=== PATIENT | female | born 1935 | race Caucasian/White ===

== ENCOUNTER 2016-02-29 13:41 | Outpatient (CLI) | payer MEDICARE, OTHER | END 2016-02-29 13:42 | disposition home or self-care (01) | DX: Z12.31 Encounter for screening mammogram for malignant neoplasm of breast (principal) ==

== ENCOUNTER 2017-01-30 13:46 | Outpatient (CLI) | payer MEDICARE, OTHER ==
--- NOTE | 2017-02-04 16:42 | Mammography Report ---
EXAMINATION: Digital diagnostic bilateral mammogram 01/30/2017. CLINICAL INDICATION: An 81-year-old with personal history of multiple benign biopsies, diffuse left breast pain. TECHNIQUE: Bilateral CC and MLO views, left true lateral view. COMPARISON: 02/29/2016, 02/28/2015, 03/02/2014, 02/23/2013 02/27/2011, 2009. FINDINGS: The breasts again demonstrate scattered fibroglandular densities bilaterally. Coarse and punctate, typically benign calcifications are present. Post-biopsy changes are stable. No suspicious masses, clustered microcalcifications, or regions of architectural distortion are identified. IMPRESSION: Benign findings. RECOMMENDATION: Routine annual screening unless otherwise clinically indicated. BI-RADS category 2 benign findings. STANDARD QUALIFYING STATEMENTS 1. This examination was reviewed with the aid of Computer-Aided Detection (CAD). 2. A negative or benign imaging report should not delay biopsy if clinically suspicious findings are present. Consider surgical consultation if warranted. More than 5% of cancers are not identified by imaging. 3. Dense breasts may obscure an underlying neoplasm. TD: 01/31/2017 05:35 SMITHA
== END 2017-01-30 13:47 | disposition home or self-care (01) ==
LOC: DI 13:46
PROVIDERS: ATTEND Internal Medicine
DX: N64.4 Mastodynia (principal)
CPT/HCPCS: 77066

== ENCOUNTER 2017-10-23 00:52 | Emergency (ER) | payer MEDICARE, OTHER ==
[2017-10-23] MEDS ORDERED: ASPIRIN CHEW 81 MG TABLET PO STA (01:04)
[2017-10-23] MEDS ORDERED: LORazepam 2 MG/ML VIAL IVP STA (01:14)
[2017-10-23] MEDS ORDERED: LORazepam 0.5 MG TABLET PO STA (01:14)
[2017-10-23 01:25] LABS: BASOPHILS # (AUTO) 0.1 10^3/uL (0.0-0.1); BASOPHILS % (AUTO) 0.7 %; EOSINOPHILS # (AUTO) 0.2 10^3/uL (0.0-0.7); EOSINOPHILS % (AUTO) 1.8 %; HGB - HEMOGLOBIN 14.9 g/dL (12.0-16.0); LYMPHOCYTES % (AUTO) 33.8 %; MEAN CORPUSCULAR HEMOGLOBIN 31.2 pg (27.0-31.0); MEAN CORPUSCULAR HGB CONC 34.1 g/dL (32.0-36.0); MEAN CORPUSCULAR VOLUME 91.6 fL (81.0-99.0); MEAN PLATELET VOLUME 7.3 fL (7.9-10.8); MONOCYTES # (AUTO) 0.8 10^3/uL (0.0-1.0); MONOCYTES % (AUTO) 6.4 %; NEUTROPHILS # (AUTO) 6.7 10^3/uL (1.5-6.6); NEUTROPHILS % (AUTO) 57.3 %; PLT - PLATELET COUNT 257 10^3/uL (130-450); RED BLOOD COUNT 4.78 10^6/uL (4.20-5.40); RED CELL DISTRIBUTION WIDTH 14.4 % (12.0-15.0); WHITE BLOOD COUNT 11.8 x10^3/uL (4.8-10.8)
[2017-10-23 01:31] LABS: ALBUMIN 4.4 g/dL (3.2-5.5); ALBUMIN/GLOBULIN RATIO 1.1 (1.0-2.2); BILIRUBIN,TOTAL 0.9 mg/dL (0.2-1.0); CALCIUM 9.6 mg/dL (8.5-10.3); CREATININE 0.8 mg/dL (0.4-1.0); TOTAL PROTEIN 8.3 g/dL (6.7-8.2)
[2017-10-23] MEDS ORDERED: FUROSEMIDE 40 MG/4 ML VIAL IVP STA (01:36)
--- NOTE | 2017-10-23 01:43 | XRAY Report ---
Reason: chest pain Procedure Date: 10/23/2017 Accession Number: [id number] / [id number] Procedure: XR - Chest 1 View X-Ray CPT Code: 20612 FULL RESULT: EXAM: CHEST RADIOGRAPHY EXAM DATE: 10/23/2017 01:23 AM. CLINICAL HISTORY: Chest pain. COMPARISON: None. TECHNIQUE: 1 view. FINDINGS: Lungs/Pleura: Diffuse mild interstitial opacities. Probable trace effusions. No gross pneumothorax. Mediastinum: Moderate cardiomegaly. No mediastinal shift. Other: None. IMPRESSION: Moderate CHF. RADIA
--- NOTE | 2017-10-23 01:54 | ED Physician Documentation ---
History of Present Illness - Stated complaint Stated Complaint: DIFF BREATHING,CHEST PX - Chief complaint Chief Complaint: General - History obtained from History obtained from: Patient, Family - Additonal information Additional information: 82-year-old female presents to the emergency department with sudden onset of shortness of breath which started this morning. The patient denies any chest pain or symptoms yesterday. The patient awoke suddenly this morning with significant shortness of breath. The patient denies any history of pulmonary disease or congestive heart failure. The patient has a history of atrial fibrillation and had a cardioversion on October 18. Symptoms are described as severe. No relieving factors. The patient denies fever, chills, cough or chest pain Review of Systems Constitutional: reports: Fatigue. denies: Fever Eyes: denies: Loss of vision Ears: denies: Ear pain Throat: denies: Dental pain / toothache Cardiac: reports: Pedal edema. 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 HEENT: Cataracts - Present Medications Home Medications: Ambulatory Orders Medication Instructions Recorded Confirmed Flecainide [Tambocar] 50 mg PO BID 10/23/17 10/23/17 Gemfibrozil 600 mg PO BID 10/23/17 10/23/17 Hydrocortisone PRN 10/23/17 Metoprolol Tartrate 25 mg PO TID 10/23/17 10/23/17 Multivitamin [Multivitamins] 1 cap PO DAILY 10/23/17 10/23/17 Rivaroxaban [Xarelto] 20 mg PO DAILY 10/23/17 10/23/17 Telmisartan/Hydrochlorothiazid 1 tab PO DAILY 10/23/17 10/23/17 [Telmisartan-Hctz 80-25 mg Tab] metFORMIN [Glucophage] 500 mg PO BID 10/23/17 10/23/17 - Allergies Allergies/Adverse Reactions: Allergies Allergy/AdvReac Type Severity Reaction Status Date / Time erythromycin base Allergy Unknown Verified 10/23/17 01:06 Hmeryjj-Inx-Kex Reductase Allergy Unknown Verified 10/23/17 01:06 Inhibitor - Social History Does the pt smoke?: No Smoking Status: Never smoker Does the pt drink ETOH?: No Does the pt have substance abuse?: No - Immunizations Immunizations are current?: Yes - POLST Patient has POLST: No PD ED PE NORMAL - General General: Alert and oriented X 3. No: No acute distress (82-year-old female who appears tachypneic, respiratory distress and is diaphoretic) - HEENT HEENT: Atraumatic, PERRL, EOMI, Ears normal - Neck Neck: Supple, no meningeal sign - Cardiac Cardiac: RRR, Strong equal pulses - Respiratory Respiratory: Other (Increased respiratory rate, bilateral pulmonary edema) - Abdomen Abdomen: Soft, Non tender - Derm Derm: Normal color - Extremities Extremities: No deformity. No: No edema (2+ edema bilaterally) - Neuro Neuro: Alert and oriented X 3, Normal speech - Psych Psych: Normal mood Results - Vitals Vitals: Vital Signs - 24 hr 10/23/17 10/23/17 10/23/17 01:00 01:15 01:24 Heart Rate 86 76 76 Respiratory 32 H 27 H 31 H Rate Blood Pressure 224/175 H 190/101 H 157/97 H O2 Saturation 85 L 96 93 10/23/17 10/23/17 10/23/17 01:34 01:48 01:55 Heart Rate 69 76 66 Respiratory 32 H 22 23 Rate Blood Pressure 145/84 H 121/75 137/85 H O2 Saturation 95 97 98 10/23/17 10/23/17 10/23/17 02:13 02:22 02:30 Heart Rate 73 67 64 Respiratory 22 21 23 Rate Blood Pressure 116/85 H 133/79 H 125/79 O2 Saturation 100 99 97 10/23/17 10/23/17 10/23/17 02:51 03:14 03:15 Heart Rate 65 66 64 Respiratory 26 H 23 Rate Blood Pressure 122/76 114/71 O2 Saturation 97 98 10/23/17 10/23/17 03:21 03:25 Heart Rate 65 63 Respiratory 21 21 Rate Blood Pressure 104/74 97/62 O2 Saturation 98 98 Oxygen O2 Source BIPAP - EKG (time done) No standard instances Rhythm: NSR Intervals: Normal MA, QRS normal Ischemia: Non specific changes (Subtle ST elevation, does not meet STEMI criteria) Other comments: Other comments (NSR with ischemic changes, no old to compare, repeat EKG no change) - Labs Labs: Laboratory Tests 10/23/17 10/23/17 10/23/17 01:10 01:10 01:10 WBC 11.8 H RBC 4.78 Hgb 14.9 Hct 43.8 MCV 91.6 MCH 31.2 H MCHC 34.1 RDW 14.4 Plt Count 257 MPV 7.3 L Neut # (Auto) 6.7 H Lymph # (Auto) 4.0 H [place] # (Auto) 0.8 Eos # (Auto) 0.2 Baso # (Auto) 0.1 Absolute Nucleated RBC 0.00 Nucleated RBC % 0.0 PT INR APTT Bld Gas Analysis Time Sample Site ABG pH ABG pCO2 ABG pO2 ABG HCO3 ABG Total CO2 ABG O2 Saturation ABG Oximetry Spot Check ABG Base Excess Giorgi Test FiO2 PEEP Pressure Support Vent EPAP IPAP Sodium 135 Potassium 4.2 Chloride 102 Carbon Dioxide 22 Anion Gap 11.0 BUN 21 H Creatinine 0.8 Estimated GFR (MDRD) 69 L Glucose 160 H Calcium 9.6 Total Bilirubin 0.9 AST 40 ALT 21 Alkaline Phosphatase 67 Troponin I 0.31 B-Natriuretic Peptide Total Protein 8.3 H Albumin 4.4 Globulin 3.9 Albumin/Globulin Ratio 1.1 Lipase 58 H 10/23/17 10/23/17 10/23/17 01:10 01:10 01:55 WBC RBC Hgb Hct MCV MCH MCHC RDW Plt Count MPV Neut # (Auto) Lymph # (Auto) [place] # (Auto) Eos # (Auto) Baso # (Auto) Absolute Nucleated RBC Nucleated RBC % PT 23.1 H INR 2.1 H APTT 44.8 H Bld Gas Analysis Time 0210 Sample Site RIGHT BRACHIAL ABG pH 7.41 ABG pCO2 33 L ABG pO2 109 H ABG HCO3 20.5 L ABG Total CO2 21.5 ABG O2 Saturation 98 ABG Oximetry Spot Check 97 ABG Base Excess -3.3 L Giorgi Test POSITIVE FiO2 50.00 PEEP 5 Pressure Support Vent 8 EPAP 5 IPAP 13 Sodium Potassium Chloride Carbon Dioxide Anion Gap BUN Creatinine Estimated GFR (MDRD) Glucose Calcium Total Bilirubin AST ALT Alkaline Phosphatase Troponin I B-Natriuretic Peptide 466 H Total Protein Albumin Globulin Albumin/Globulin Ratio Lipase - Rads (name of study) CXR Radiology: Final report received PD MEDICAL DECISION MAKING - ED course ED course: The patient was resuscitated with BiPAP, a nitro drip and Lasix. The patient's acute congestive heart failure exacerbation has improved and stabilized and the patient will require admission for further workup and management. The case was discussed with the hospitalist Dr. Mcrae who recommends transfer to a center with cardiology since this is new onset for the patient and it appears that she has a NSTEMI. Multiple hospitals were contacted, unfortunately none had beds available. [facility] as except the patient. The case was discussed with Dr. Loaiza. The findings and plan were discussed with the patient and family who understand and agree to the plan - Critical Care Time(min): 35 Time Includes: Direct patient care, Reassess patient, Document care, Coordinate care, Medical consult, Family consult for tx dec Data interpretation: Labs, Pulse ox, ABG, CXR, Prior EKG Procedures excluded from critical care time: EKG - Sepsis Event Vital Signs: Vital Signs - 24 hr 10/23/17 10/23/17 10/23/17 01:00 01:15 01:24 Heart Rate 86 76 76 Respiratory 32 H 27 H 31 H Rate Blood Pressure 224/175 H 190/101 H 157/97 H O2 Saturation 85 L 96 93 10/23/17 10/23/17 10/23/17 01:34 01:48 01:55 Heart Rate 69 76 66 Respiratory 32 H 22 23 Rate Blood Pressure 145/84 H 121/75 137/85 H O2 Saturation 95 97 98 10/23/17 10/23/17 10/23/17 02:13 02:22 02:30 Heart Rate 73 67 64 Respiratory 22 21 23 Rate Blood Pressure 116/85 H 133/79 H 125/79 O2 Saturation 100 99 97 10/23/17 10/23/17 10/23/17 02:51 03:14 03:15 Heart Rate 65 66 64 Respiratory 26 H 23 Rate Blood Pressure 122/76 114/71 O2 Saturation 97 98 10/23/17 10/23/17 03:21 03:25 Heart Rate 65 63 Respiratory 21 21 Rate Blood Pressure 104/74 97/62 O2 Saturation 98 98 Oxygen O2 Source BIPAP Departure - Departure Disposition: 02 Transfer Acute Care Hosp Clinical Impression: NSTEMI (non-ST elevated myocardial infarction) Acute CHF Qualifiers: Heart failure type: unspecified Qualified Code(s): I50.9 - Heart failure, unspecified Condition: Fair
[2017-10-23] MEDS ORDERED: NITROGLYCERIN 50 MG/250 ML 50 MG/250 ML BOTTLE IV SCH (02:00)
[2017-10-23 02:13] LABS: INR 2.1 (0.8-1.2); PT - PROTHROMBIN TIME 23.1 secs (9.9-12.6)
[2017-10-23 02:23] LABS: ABG PH 7.41 (7.35-7.45)
[2017-10-23 02:24] LABS: ABG BASE EXCESS -3.3 mmol/L (-2.0-3.0); ABG HCO3 20.5 mmol/L (22.0-26.0); ABG OXYGEN SATURATION 98 % (94-98); ABG PCO2 33 mmHg (34-45); ABG PO2 109 mmHg (80-100); ABG TCO2 21.5 MMOL/L (21.0-29.0); ALLEN TEST POSITIVE
[2017-10-23] MEDS ORDERED: ENOXAPARIN 80 MG/0.8 ML SYRINGE SUBQ STA (02:48)
[2017-10-23 06:48] VITALS: BP 130/75
== END 2017-10-23 07:10 | disposition short-term general hospital (02) ==
LOC: ED 00:52
DX: I21.4 Non-ST elevation (NSTEMI) myocardial infarction (principal); I50.9 Heart failure, unspecified; I11.0 Hypertensive heart disease with heart failure; E11.9 Type 2 diabetes mellitus without complications; I48.91 Unspecified atrial fibrillation; Z79.84 Long term (current) use of oral hypoglycemic drugs
CPT/HCPCS: 36415; 36600; 71045; 80053; 82803; 83690; 83880; 84484; 85025; 85610; 85730; 93005; 96365; 96375; 99285; 99291; A9270; J1650; J2060

== ENCOUNTER 2018-02-23 12:53 | Outpatient (CLI) | payer MEDICARE, OTHER ==
--- NOTE | 2018-02-24 09:46 | Mammography Report ---
Reason: SCREENING MAMMO Procedure Date: 02/23/2018 Accession Number: [id number] / [id number] Procedure: CAREN - Screening Mammo w/Tu CPT Code: FULL RESULT: EXAM: Screening Mammo w/Tu DATE: 02/23/2018 1:51 PM CLINICAL HISTORY: Screening encounter. History of 13 years of hormone therapy and history of breast cyst removal bilaterally. TECHNIQUE: Bilateral CC and MLO views were obtained. COMPARISON: 01/30/2017 through 02/23/2013. FINDINGS: The breasts demonstrate scattered fibroglandular densities bilaterally. Postsurgical changes are seen bilaterally including coarse typically benign calcifications in the left breast. No suspicious masses, clustered microcalcifications, or regions of architectural distortion are identified. IMPRESSION: Benign findings RECOMMENDATION: Routine annual screening unless otherwise clinically indicated. BIRADS CATEGORY 2: Benign findings STANDARD QUALIFYING STATEMENTS: 1. This examination was not reviewed with the aid of Computer-Aided Detection (CAD). 2. A negative or benign imaging report should not preclude biopsy if clinically suspicious findings are present. 3. Dense breasts may obscure an underlying neoplasm. 4. This examination was reviewed with the aid of 3D breast imaging (tomosynthesis).
== END 2018-02-23 12:54 | disposition home or self-care (01) ==
LOC: DI 12:53
PROVIDERS: ATTEND Internal Medicine
DX: Z12.31 Encounter for screening mammogram for malignant neoplasm of breast (principal)
CPT/HCPCS: 77063; 77067

== ENCOUNTER 2018-09-25 09:52 | Emergency (ER) | payer MEDICARE, OTHER ==
[2018-09-25 10:02] VITALS: BP 153/106
--- NOTE | 2018-09-25 10:08 | ED Physician Documentation ---
History of Present Illness - Stated complaint Stated Complaint: LT LEG PX/SWELLING - Chief complaint Chief Complaint: Ext Problem - History obtained from History obtained from: Patient - Additonal information Additional information: Patient is an 83-year-old female with history of CHF and atrial fibrillation anticoagulated with Xarelto and compliant with home medications presenting with left leg pain, swelling, slight erythema, and bruising that happened several days ago. No known inciting incident or trauma. Patient denies changes in sensation, strength, or range of motion to leg. Patient reports slight improvement with ice application. Patient reports no other areas of swelling and otherwise limited salt intake. No chest pain, difficulty breathing, productive cough, fever, or other complaints. No other improving or worsening factors noted. Review of Systems Constitutional: denies: Fever Cardiac: denies: Chest pain / pressure Respiratory: denies: Dyspnea, Cough Skin: reports: Rash Musculoskeletal: reports: Extremity pain, Extremity swelling Neurologic: denies: Focal weakness, Numbness PD PAST MEDICAL HISTORY - Past Medical History Past Medical History: Yes Cardiovascular: Congestive heart failure, Hypertension, Atrial fibrillation Respiratory: None Endocrine/Autoimmune: Type 2 diabetes Musculoskeletal: Osteoarthritis - Past Surgical History Past Surgical History: Yes General: Cholecystectomy Ortho: Hip replacement, Knee replacement, Rotator cuff repair /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 HEENT: Cataracts - Present Medications Home Medications: Ambulatory Orders Medication Instructions Recorded Confirmed Flecainide [Tambocar] 50 mg PO BID 10/23/17 10/23/17 Gemfibrozil 600 mg PO BID 10/23/17 10/23/17 Hydrocortisone PRN 10/23/17 Metoprolol Tartrate 25 mg PO TID 10/23/17 10/23/17 Multivitamin [Multivitamins] 1 cap PO DAILY 10/23/17 10/23/17 Rivaroxaban [Xarelto] 20 mg PO DAILY 10/23/17 10/23/17 Telmisartan/Hydrochlorothiazid 1 tab PO DAILY 10/23/17 10/23/17 [Telmisartan-Hctz 80-25 mg Tab] metFORMIN [Glucophage] 500 mg PO BID 10/23/17 10/23/17 Clindamycin HCl [Clindamycin 150MG 450 mg PO QID 5 Days capsule 09/25/18 CAP] Rivaroxaban [Xarelto] 20 mg PO DAILY 09/25/18 09/25/18 - Allergies Allergies/Adverse Reactions: Allergies Allergy/AdvReac Type Severity Reaction Status Date / Time erythromycin base Allergy Unknown Verified 09/25/18 10:02 Fizzvcu-Wpa-Iao Reductase Allergy Unknown Verified 09/25/18 10:02 Inhibitor - Social History Does the pt smoke?: No Smoking Status: Never smoker Does the pt drink ETOH?: No Does the pt have substance abuse?: No - Immunizations Immunizations are current?: Yes - POLST Patient has POLST: No PD ED PE NORMAL - Vitals Vital signs reviewed: Yes - General General: Alert and oriented X 3, No acute distress, Well developed/nourished - HEENT HEENT: Atraumatic, Moist mucous membranes - Neck Neck: Supple, no meningeal sign - Cardiac Cardiac: RRR, No murmur, Strong equal pulses - Respiratory Respiratory: No respiratory distress, Clear bilaterally - Derm Derm: Warm and dry, Other (2+ pitting edema to left lower extremity with diffuse erythema between left knee and left ankle, as well as scattered bruising of variable age to the same area.) - Extremities Extremities: No deformity. No: No tenderness to palpate (Mild tenderness to palpation over left lower extremity overlying areas of swelling.), No edema - Neuro Neuro: Alert and oriented X 3, No motor deficit, No sensory deficit - Psych Psych: Normal mood, Normal affect Results - Vitals Vitals: Vital Signs - 24 hr 09/25/18 09:59 Temperature 36.0 C L Heart Rate 96 Respiratory 20 Rate Blood Pressure 153/106 H O2 Saturation 97 Oxygen O2 Source Room air PD MEDICAL DECISION MAKING - ED course Complexity details: reviewed results, re-evaluated patient, considered differential, d/w patient, d/w family ED course: Patient presenting with left lower extremity swelling, erythema, and bruising without known inciting incident or trauma. Although did not feel bony tenderness or exhibit a deformity, do have concern for possible trauma given the extent of bruising and obtained a plain film which did not show evidence of dislocation or fracture. Patient is unlikely to have a clot given her anticoagulation, but did rule out DVT with venous ultrasound. Do not find evidence of joint infection, gout present. Feel the patient could also be experiencing cellulitis and discussed this potential etiology with patient and agreed to start oral antibiotics as an outpatient. Also had extensive discussions regarding other supportive cares, return precautions, and appropriate follow-up. Did discuss the possibility of worsening CHF given the amount of swelling and patient to remain compliant with her spironolactone and Lasix. Otherwise, patient and family voiced understanding and are comfortable with discharge plan. Departure - Departure Disposition: 01 Home, Self Care Clinical Impression: Cellulitis Qualifiers: Site of cellulitis: extremity Site of cellulitis of extremity: lower extremity Laterality: left Qualified Code(s): L03.116 - Cellulitis of left lower limb Condition: Good Instructions: ED Infec Skin Cellulitis Follow-Up: Candice Arias MD [Primary Care Provider] - Within 3 Days Prescriptions: Clindamycin HCl [Clindamycin 150MG CAP] 450 mg PO QID 5 Days capsule Comments: Please take antibiotic as prescribed for possible skin infection. Recommend taking antibiotic with a small amount of food to avoid upset stomach. Also recommend continuing all home prescriptions as instructed. Also recommend elevation and ice application to help reduce swelling. Follow-up with primary care physician in next 2 to 3 days and return to ED sooner if experience worsening symptoms or have other concerns.
--- NOTE | 2018-09-25 10:50 | XRAY Report ---
Reason: leg swelling, bruising, no known injury Procedure Date: 09/25/2018 Accession Number: [id number] / [id number] Procedure: XR - Tib/Fib LT CPT Code: FULL RESULT: EXAM: LEFT TIBIA/FIBULA RADIOGRAPHY EXAM DATE: 09/25/2018 10:33 AM. CLINICAL HISTORY: Leg swelling, bruising, no known injury. COMPARISON: None. TECHNIQUE: 2 views. FINDINGS: Bones: Normal. No fracture or bone lesion. Joints: Total knee arthroplasty is noted. No dislocation is detected. Soft Tissues: Normal. No soft tissue swelling. IMPRESSION: No fracture or dislocation. RADIA
--- NOTE | 2018-09-25 12:57 | Ultrasound Report ---
Reason: Left leg swelling, bruising, pain Procedure Date: 09/25/2018 Accession Number: [id number] / [id number] Procedure: US - Duplex Ext Veins Left CPT Code: FULL RESULT: EXAM: LEFT LOWER EXTREMITY VENOUS ULTRASOUND EXAM DATE: 09/25/2018 11:20 AM. CLINICAL HISTORY: Left leg swelling, bruising, pain. COMPARISON: None. TECHNIQUE: Real-time sonographic vascular imaging was performed by the air cargo specialist through the lower extremity utilizing both color-flow and Doppler spectral analysis. Multiple off premise service representative static images were saved for review. FINDINGS: Common Femoral Vein (CFV): Normal. CFV-GSV Junction: Normal. Profunda Femoral Vein (PFV): Normal. Femoral Vein (FV) Prox: Normal. Femoral Vein (FV) Mid: Normal. Femoral Vein (FV) Dist: Normal. Popliteal Vein: Normal. Posterior Tibial Veins: Normal. Peroneal Veins: Normal. Contralateral Side CFV: Normal. Other: None. IMPRESSION: No evidence for deep venous thrombosis in the left lower extremity. RADIA
== END 2018-09-25 14:00 | disposition home or self-care (01) ==
LOC: ED 09:52
DX: L03.116 Cellulitis of left lower limb (principal); S80.12XA Contusion of left lower leg, initial encounter; X58.XXXA Exposure to other specified factors, initial encounter; I11.0 Hypertensive heart disease with heart failure; I50.9 Heart failure, unspecified; I48.91 Unspecified atrial fibrillation; Z79.01 Long term (current) use of anticoagulants; E11.9 Type 2 diabetes mellitus without complications; Z79.84 Long term (current) use of oral hypoglycemic drugs
CPT/HCPCS: 99284

== ENCOUNTER 2019-01-13 09:58 | Emergency (ER) | payer MEDICARE, OTHER ==
[2019-01-13 10:12] VITALS: BP 124/76
[2019-01-13 10:49] LABS: BASOPHILS # (AUTO) 0.1 10^3/uL (0.0-0.1); BASOPHILS % (AUTO) 1.3 %; EOSINOPHILS # (AUTO) 0.2 10^3/uL (0.0-0.7); EOSINOPHILS % (AUTO) 2.7 %; HGB - HEMOGLOBIN 14.1 g/dL (12.0-16.0); LYMPHOCYTES # (AUTO) 2.4 10^3/uL (1.5-3.5); LYMPHOCYTES % (AUTO) 37.5 %; MEAN CORPUSCULAR HEMOGLOBIN 31.8 pg (27.0-31.0); MEAN CORPUSCULAR HGB CONC 33.1 g/dL (32.0-36.0); MEAN CORPUSCULAR VOLUME 96.2 fL (81.0-99.0); MONOCYTES # (AUTO) 0.7 10^3/uL (0.0-1.0); MONOCYTES % (AUTO) 11.4 %; NEUTROPHILS % (AUTO) 46.8 %; PLT - PLATELET COUNT 279 10^3/uL (130-450); RED BLOOD COUNT 4.43 10^6/uL (4.20-5.40); RED CELL DISTRIBUTION WIDTH 13.5 % (12.0-15.0); WHITE BLOOD COUNT 6.3 x10^3/uL (4.8-10.8)
[2019-01-13 10:56] LABS: INR 1.5 (0.8-1.2)
[2019-01-13 11:02] LABS: ALBUMIN 4.3 g/dL (3.2-5.5); ALBUMIN/GLOBULIN RATIO 1.3 (1.0-2.2); BILIRUBIN,TOTAL 0.8 mg/dL (0.2-1.0); CALCIUM 9.3 mg/dL (8.5-10.3); CREATININE 0.8 mg/dL (0.4-1.0); TOTAL PROTEIN 7.7 g/dL (6.7-8.2)
--- NOTE | 2019-01-13 12:41 | ED Physician Documentation ---
History of Present Illness - Stated complaint Stated Complaint: BLOODY NOSE - Chief complaint Chief Complaint: Heent - History obtained from History obtained from: Patient - History of Present Illness Timing: How many days ago (2) Pain level max: 0 Pain level now: 0 - Additonal information Additional information: recurrent epistaxis at home. Pt on xarelto. better with packing, worse with movement or blowing the nose. 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 HEENT: Cataracts - Present Medications Home Medications: Ambulatory Orders Medication Instructions Recorded Confirmed Flecainide [Tambocar] 50 mg PO BID 10/23/17 10/23/17 Gemfibrozil 600 mg PO BID 10/23/17 10/23/17 Hydrocortisone PRN 10/23/17 Metoprolol Tartrate 25 mg PO TID 10/23/17 10/23/17 Multivitamin [Multivitamins] 1 cap PO DAILY 10/23/17 10/23/17 Rivaroxaban [Xarelto] 20 mg PO DAILY 10/23/17 10/23/17 Telmisartan/Hydrochlorothiazid 1 tab PO DAILY 10/23/17 10/23/17 [Telmisartan-Hctz 80-25 mg Tab] metFORMIN [Glucophage] 500 mg PO BID 10/23/17 10/23/17 Clindamycin HCl [Clindamycin 150MG 450 mg PO QID 5 Days capsule 09/25/18 CAP] Rivaroxaban [Xarelto] 20 mg PO DAILY 09/25/18 09/25/18 Cephalexin [Keflex] 500 mg PO Q6H #10 capsule 01/13/19 - Allergies Allergies/Adverse Reactions: Allergies Allergy/AdvReac Type Severity Reaction Status Date / Time erythromycin base Allergy Unknown Verified 01/13/19 10:12 Frfboic-Bkb-Ebf Reductase Allergy Unknown Verified 01/13/19 10:12 Inhibitor - Social History Does the pt smoke?: No Smoking Status: Never smoker Does the pt drink ETOH?: No Does the pt have substance abuse?: No - Immunizations Immunizations are current?: Yes - POLST Patient has POLST: No PD ED PE NORMAL - Vitals Vital signs reviewed: Yes - General General: Alert and oriented X 3, No acute distress, Well developed/nourished - HEENT HEENT: Moist mucous membranes, Other (slight bleeding from R anterior nare) - Neck Neck: Supple, no meningeal sign - Derm Derm: Warm and dry, No rash - Neuro Neuro: Alert and oriented X 3 - Psych Psych: Normal mood, Normal affect Results - Vitals Vitals: Vital Signs - 24 hr 01/13/19 10:09 Temperature 36.4 C L Heart Rate 76 Respiratory 18 Rate Blood Pressure 124/76 O2 Saturation 100 Oxygen O2 Source Room air - Labs Labs: Laboratory Tests 01/13/19 01/13/19 01/13/19 10:40 10:40 10:40 WBC 6.3 RBC 4.43 Hgb 14.1 Hct 42.6 MCV 96.2 MCH 31.8 H MCHC 33.1 RDW 13.5 Plt Count 279 MPV 9.0 Neut # (Auto) 3.0 Lymph # (Auto) 2.4 [place] # (Auto) 0.7 Eos # (Auto) 0.2 Baso # (Auto) 0.1 Absolute Nucleated RBC 0.00 Nucleated RBC % 0.0 PT 17.0 H INR 1.5 H Sodium 139 Potassium 3.4 L Chloride 102 Carbon Dioxide 28 Anion Gap 9.0 BUN 23 H Creatinine 0.8 Estimated GFR (MDRD) 69 L Glucose 117 H Calcium 9.3 Total Bilirubin 0.8 AST 33 ALT 20 Alkaline Phosphatase 45 Total Protein 7.7 Albumin 4.3 Globulin 3.4 Albumin/Globulin Ratio 1.3 Procedures - Epistaxis Site: Right, Anterior Preparation: Clots removed, Clamp / pressure applied Treatment: Anterior rhinorocket Other: Observed - no bleeding, Pt tolerated well, O2 sat WNL, Antibiotics prescribed, Referred to ENT PD MEDICAL DECISION MAKING - ED course Complexity details: reviewed results, considered differential, d/w patient, d/w family ED course: Anterior epistaxis. packed. Patient counseled regarding signs and symptoms for which I believe and urgent re-evaluation would be necessary. Patient with good understanding of and agreement to plan and is comfortable going home at this time This document was made in part using voice recognition software. While efforts are made to proofread this document, sound alike and grammatical errors may occur. Departure - Departure Disposition: 01 Home, Self Care Clinical Impression: Epistaxis Condition: Good Instructions: ED Nosebleed Follow-Up: Candice Arias MD [Primary Care Provider] - [facility] [Provider Group] [facility] [Provider Group] Prescriptions: Cephalexin [Keflex] 500 mg PO Q6H #10 capsule Comments: Return on Friday to have the packing removed. Take the antibiotics while the packing is inserted. Return if you worsen.
== END 2019-01-13 13:14 | disposition home or self-care (01) ==
LOC: ED 09:58
DX: R04.0 Epistaxis (principal); I10 Essential (primary) hypertension; E11.9 Type 2 diabetes mellitus without complications; Z79.84 Long term (current) use of oral hypoglycemic drugs
CPT/HCPCS: 30901; 36415; 80053; 85025; 85610; 99283; 99284

== ENCOUNTER 2019-01-15 09:52 | Emergency (ER) | payer MEDICARE, OTHER ==
[2019-01-15 10:03] VITALS: BP 125/86
--- NOTE | 2019-01-15 11:02 | ED Physician Documentation ---
PD HPI HEENT - Stated complaint Stated Complaint: F/U NOSEBLEED - Chief complaint Chief Complaint: General - History obtained from History obtained from: Patient - History of Present Illness Timing - onset: How many days ago (2) Timing - details: Abrupt onset, Now resolved (The patient was here couple days ago for nosebleed and had a Rhino Rocket placed. There is been in there for a couple of days and she is here for removal. She denies any bleeding since the ER visit. No fever or chills. No sinus area pressure pain.) Recently seen: Emergency Dept (2 days ago for nosebleed) Review of Systems Constitutional: denies: Fever, Chills Nose: denies: Sinus pressure / pain Throat: denies: Sore throat Endocrine: reports: Easy bruising / bleeding PD PAST MEDICAL HISTORY - Past Medical History Past Medical History: Yes Cardiovascular: Congestive heart failure, Hypertension, Atrial fibrillation Respiratory: None Endocrine/Autoimmune: Type 2 diabetes Musculoskeletal: Osteoarthritis - Past Surgical History Past Surgical History: Yes General: Cholecystectomy Ortho: Hip replacement, Knee replacement, Rotator cuff repair /[employer]: Hysterectomy HEENT: Cataracts - Present Medications Home Medications: Ambulatory Orders Medication Instructions Recorded Confirmed Flecainide [Tambocar] 50 mg PO BID 10/23/17 10/23/17 Gemfibrozil 600 mg PO BID 10/23/17 10/23/17 Hydrocortisone PRN 10/23/17 Metoprolol Tartrate 25 mg PO TID 10/23/17 10/23/17 Multivitamin [Multivitamins] 1 cap PO DAILY 10/23/17 10/23/17 Rivaroxaban [Xarelto] 20 mg PO DAILY 10/23/17 10/23/17 Telmisartan/Hydrochlorothiazid 1 tab PO DAILY 10/23/17 10/23/17 [Telmisartan-Hctz 80-25 mg Tab] metFORMIN [Glucophage] 500 mg PO BID 10/23/17 10/23/17 Clindamycin HCl [Clindamycin 150MG 450 mg PO QID 5 Days capsule 09/25/18 CAP] Rivaroxaban [Xarelto] 20 mg PO DAILY 09/25/18 09/25/18 Cephalexin [Keflex] 500 mg PO Q6H #10 capsule 01/13/19 - Allergies Allergies/Adverse Reactions: Allergies Allergy/AdvReac Type Severity Reaction Status Date / Time erythromycin base Allergy Unknown Verified 01/15/19 10:03 Nlmwiuq-Kgf-Kzv Reductase Allergy Unknown Verified 01/15/19 10:03 Inhibitor - Social History Does the pt smoke?: No Smoking Status: Never smoker Does the pt drink ETOH?: No Does the pt have substance abuse?: No - Immunizations Immunizations are current?: Yes - POLST Patient has POLST: No PD ED PE NORMAL - Vitals Vital signs reviewed: Yes - General General: Alert and oriented X 3, No acute distress, Well developed/nourished - HEENT HEENT: PERRL, EOMI, Pharynx benign, Other (There is a Rhino Rocket in place in the right nostril. Its balloon is deflated and removed gently without any co mplications. The medial wall does not show any signs of ulcerations or acute problems. There is mild inflammation generally. There is no area that looks to be impending bleeding.) - Neck Neck: Supple, no meningeal sign, No adenopathy Results - Vitals Vitals: Oxygen O2 Source Room air PD MEDICAL DECISION MAKING - ED course Complexity details: considered differential (The nasal packing was removed and the wall appeared normal without any bleeding or signs of impending bleeding.), d/w patient Departure - Departure Disposition: 01 Home, Self Care Clinical Impression: Encounter for removal of nasal pack Condition: Stable Record reviewed to determine appropriate education?: Yes Comments: Use some ointment to the nasal wall gently with a Q-tip nightly and also some saline nose spray or moisturizing fluid 2-3 times during the day regularly. Continue usual medications. Discharge Date/Time: 01/15/19 11:24
== END 2019-01-15 11:24 | disposition home or self-care (01) ==
LOC: ED 09:52
DX: Z48.00 Encounter for change or removal of nonsurgical wound dressing (principal); I11.0 Hypertensive heart disease with heart failure; I50.9 Heart failure, unspecified; I48.91 Unspecified atrial fibrillation; Z79.01 Long term (current) use of anticoagulants; E11.9 Type 2 diabetes mellitus without complications; Z79.84 Long term (current) use of oral hypoglycemic drugs
CPT/HCPCS: 99281

== ENCOUNTER 2019-02-10 21:59 | Emergency (ER) | payer MEDICARE, OTHER ==
[2019-02-10] MEDS ORDERED: BUFFERED LIDOCAINE 10 ML SYRINGE SUBQ STA (22:32)
[2019-02-10] MEDS ORDERED: TETANUS/DIPHTHERIA/PERTUSSIS 0.5 ML SYRINGE IM ONE (22:32)
--- NOTE | 2019-02-10 22:33 | ED Physician Documentation ---
PD HPI UPPER EXT INJURY - Stated complaint Stated Complaint: LT HAND LAC - Chief complaint Chief Complaint: Laceration - History obtained from History obtained from: Patient - History of Present Illness Location: Left (83-year-old woman with unknown tetanus status was washing dishes and accidentally cut her left palm with a knife at home just prior to arrival.) Review of Systems Constitutional: reports: Reviewed and negative Throat: reports: Reviewed and negative Cardiac: reports: Reviewed and negative PD PAST MEDICAL HISTORY - Past Medical History Past Medical History: Yes Cardiovascular: Congestive heart failure, Hypertension, Atrial fibrillation Respiratory: None Endocrine/Autoimmune: Type 2 diabetes Musculoskeletal: Osteoarthritis - Past Surgical History Past Surgical History: Yes General: Cholecystectomy Ortho: Hip replacement, Knee replacement, 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: Hysterectomy HEENT: Cataracts - Present Medications Home Medications: Ambulatory Orders Medication Instructions Recorded Confirmed Flecainide [Tambocar] 50 mg PO BID 10/23/17 10/23/17 Gemfibrozil 600 mg PO BID 10/23/17 10/23/17 Hydrocortisone PRN 10/23/17 Metoprolol Tartrate 25 mg PO TID 10/23/17 10/23/17 Multivitamin [Multivitamins] 1 cap PO DAILY 10/23/17 10/23/17 Rivaroxaban [Xarelto] 20 mg PO DAILY 10/23/17 10/23/17 Telmisartan/Hydrochlorothiazid 1 tab PO DAILY 10/23/17 10/23/17 [Telmisartan-Hctz 80-25 mg Tab] metFORMIN [Glucophage] 500 mg PO BID 10/23/17 10/23/17 Clindamycin HCl [Clindamycin 150MG 450 mg PO QID 5 Days capsule 09/25/18 CAP] Rivaroxaban [Xarelto] 20 mg PO DAILY 09/25/18 09/25/18 Cephalexin [Keflex] 500 mg PO Q6H #10 capsule 01/13/19 - Allergies Allergies/Adverse Reactions: Allergies Allergy/AdvReac Type Severity Reaction Status Date / Time erythromycin base Allergy Unknown Verified 01/15/19 10:03 Uldeqpz-Dda-Vkm Reductase Allergy Unknown Verified 01/15/19 10:03 Inhibitor - Social History Does the pt smoke?: No Smoking Status: Never smoker Does the pt drink ETOH?: No Does the pt have substance abuse?: No - Immunizations Immunizations are current?: Yes - POLST Patient has POLST: No PD ED PE NORMAL - Vitals Vital signs reviewed: Yes - General General: Alert and oriented X 3, No acute distress - Extremities Extremities: Other (There is a 1.5 cm laceration on the thenar musculature on the palmar side without distal neurovascular compromise) - Neuro Neuro: Alert and oriented X 3, Normal speech Results - Vitals Vitals: Vital Signs - 24 hr 02/10/19 22:07 Temperature 36.7 C Heart Rate 72 Respiratory 18 Rate Blood Pressure 133/89 H O2 Saturation 97 Oxygen O2 Source Room air Procedures - Laceration (location) L hand Length in cm: 1.5 Wound type: Linear Neurovascular status: Sensory intact, Motor intact, Vascular intact Tendon involvement: Tendon intact Anesthesia: Lidocaine 1%, With bicarb Wound Preparation: Irrigated copiously NS Skin layer closure: Nylon, Interrupted, Size #-0 - enter number (4-0), Sutures - enter # (4) Other: Tetanus booster given Complexity: Simple Departure - Departure Disposition: 01 Home, Self Care Clinical Impression: Laceration of left hand Qualifiers: Encounter type: initial encounter Foreign body presence: without foreign body Qualified Code(s): S61.412A - Laceration without foreign body of left hand, initial encounter Condition: Good Record reviewed to determine appropriate education?: Yes Instructions: ED Laceration All Comments: Come back for any signs of infection which would include: Redness, swelling, drainage, increased pain, or fevers. You can wash it soap and water. Keep it covered and moist with bacitracin ointment which is available over the counter; avoid neosporin. Follow-up with your physician in 14 days for suture removal.
[2019-02-10 23:11] VITALS: BP 105/60
== END 2019-02-10 23:11 | disposition home or self-care (01) ==
LOC: ED 21:59
DX: S61.412A Laceration without foreign body of left hand, initial encounter (principal); W26.0XXA Contact with knife, initial encounter; Y93.G1 Activity, food preparation and clean up; I10 Essential (primary) hypertension; E11.9 Type 2 diabetes mellitus without complications; Z79.84 Long term (current) use of oral hypoglycemic drugs; Z79.01 Long term (current) use of anticoagulants
CPT/HCPCS: 12001; 90471

== ENCOUNTER 2019-03-19 09:38 | Outpatient (CLI) | payer MEDICARE, OTHER ==
--- NOTE | 2019-03-22 11:34 | Mammography Report ---
Reason: ROUTINE MAMMO Procedure Date: 03/19/2019 Accession Number: [id number] / [id number] Procedure: CAREN - Screening Mammo w/Tu CPT Code: Final Report FULL RESULT: EXAM: Screening Mammo w/Tu DATE: 03/19/2019 10:13 AM CLINICAL HISTORY: History of bilateral benign breast biopsies. TECHNIQUE: (B) - Bilateral CC and MLO views were obtained. COMPARISON: 02/23/2018, 01/30/2017, 02/29/2016, 02/28/2015, 03/02/2014, 02/23/2013, 02/27/2009 and 02/12/2010 PARENCHYMAL PATTERN: (A) - The breasts demonstrate scattered fibroglandular densities bilaterally. FINDINGS: No significant interval change. There are no new suspicious masses, calcifications, or areas of distortion. IMPRESSION: Negative examination. BI-RADS category 1. RECOMMENDATION: (ANNUAL) - Recommend routine annual screening mammography. BI-RADS CATEGORY: (1) - Negative. STANDARD QUALIFYING STATEMENTS: 1. This examination was not reviewed with the aid of Computer-Aided Detection (CAD). 2. A negative or benign imaging report should not preclude biopsy if clinically suspicious findings are present. 3. Dense breasts may obscure an underlying neoplasm. 4. This examination was reviewed with the aid of 3D breast imaging (tomosynthesis).
== END 2019-03-19 09:39 | disposition home or self-care (01) ==
LOC: DI 09:38
PROVIDERS: ATTEND Internal Medicine
DX: Z12.31 Encounter for screening mammogram for malignant neoplasm of breast (principal)
CPT/HCPCS: 77063; 77067

== ENCOUNTER 2021-05-04 07:00 | Outpatient (CLI) | payer MEDICARE, OTHER ==
[2021-05-04 16:17] LABS: CREATININE 0.8 mg/dL (0.4-1.0); POTASSIUM 3.7 mmol/L (3.5-5.0)
[2021-05-04 18:41] LABS: ESTIMATED AVERAGE GLUCOSE 134 mg/dL (70-100); HEMOGLOBIN A1c% 6.3 % (4.27-6.07)
== END 2021-05-04 23:59 | disposition home or self-care (01) ==
LOC: LAB.R 07:00
PROVIDERS: ATTEND Internal Medicine
DX: I10 Essential (primary) hypertension (principal); I25.10 Atherosclerotic heart disease of native coronary artery without angina pectoris; E11.9 Type 2 diabetes mellitus without complications; H91.90 Unspecified hearing loss, unspecified ear; Z79.899 Other long term (current) drug therapy
CPT/HCPCS: 80048; 82607; 83036

== ENCOUNTER 2022-01-29 08:54 | Outpatient (CLI) | payer MEDICARE, OTHER ==
[2022-01-29 13:29] LABS: ALBUMIN/GLOBULIN RATIO 1.1 (1.0-2.2); ALKALINE PHOSPHATASE 43 IU/L (42-121); ALT ALANINE AMINOTRANSFERASE 22 IU/L (10-60); AST ASPARTATE AMINOTRANSFERASE 34 IU/L (10-42); BILIRUBIN,TOTAL 0.6 mg/dL (0.2-1.0); BUN - BLOOD UREA NITROGEN 31 mg/dL (6-20); CALCIUM 10.1 mg/dL (8.5-10.3); CARBON DIOXIDE - CO2 24 mmol/L (21-32); CHLORIDE 105 mmol/L (101-111); CHOL/HDL RATIO 7.5 (<4.4); CHOLESTEROL 209 mg/dL; CREATININE 1.3 mg/dL (0.4-1.0); GFR - MDRD 39 (>89); GLUCOSE 119 mg/dL (70-100); HDL CHOLESTEROL 28 mg/dL; LDL CHOLESTEROL,CALCULATED 143 mg/dL; LDL/HDL RATIO 5.1 (<4.4); POTASSIUM 4.3 mmol/L (3.5-5.0); SODIUM 140 mmol/L (135-145); TOTAL PROTEIN 7.7 g/dL (6.7-8.2); TRIGLYCERIDES 189 mg/dL; VLDL CHOLESTEROL 38 mg/dL
== END 2022-01-29 08:55 | disposition home or self-care (01) ==
LOC: LAB.N 08:54
PROVIDERS: ATTEND Internal Medicine Cardiovascular Disease
DX: I10 Essential (primary) hypertension (principal); E78.5 Hyperlipidemia, unspecified
CPT/HCPCS: 36415; 80053; 80061; 83721

== ENCOUNTER 2023-10-28 10:54 | Day surgery (SDC) | payer MEDICARE, OTHER ==
[2023-10-28] MEDS: LACTATED RINGERS 1,000 ML IV ONE ×2 (11:17→13:07)
[2023-10-28] MEDS ORDERED: PROPOFOL 500 MG/50 ML 500 MG/50 ML VIAL ONE (11:32)
--- NOTE | 2023-10-28 12:17 | ANESTHESIA ---
Pre-Anesthesia VS, & Labs - Diagnosis rectal bleeding - Procedure colonoscopy, hemorrhoid banding Height: 5 ft 2 in Weight (kg): 71.3 kg Body Mass Index: 28.7 BMI Classification: Overweight - NPO >8 hours Last Fluid Intake: am prep - Is Patient ?: No - Lab Results Current Lab Results: Laboratory Tests 10/28/23 11:58: POC Whole Bld Glucose 83 Lab results reviewed: Yes Home Medications and Allergies Home Medications: Ambulatory Orders Acetaminophen [Tylenol] 1,000 mg PO QPM 10/22/23 Carboxymethylcellulose 1% Opht [Refresh 1% Ophth Drops] 1 each OPTH PRN PRN 10/22/23 Cholecalciferol (Vitamin D3) [Vitamin D3] 1,000 unit PO DAILY 10/22/23 Furosemide [Lasix] 20 mg PO DAILY 10/22/23 Conway-3/Dha/Epa/Fish Oil [Fish Oil 1,000 mg Softgel] 1 each PO DAILY 10/22/23 Pramoxine HCl [Proctofoam] 1 applic TP PRN PRN 10/22/23 Psyllium Husk [Metamucil] 2 cap PO PRN PRN 10/22/23 Telmisartan 40 mg PO BID 10/22/23 gemfibroziL [Lopid] 600 mg PO BIDAC 10/22/23 Metoprolol Tartrate 25 mg PO BID 10/23/17 Multivitamin [Multivitamins] 1 cap PO DAILY 10/23/17 Rivaroxaban [Xarelto] 20 mg PO DAILY 09/25/18 Acetaminophen [Tylenol] 1,000 mg PO QPM 10/22/23 Carboxymethylcellulose 1% Opht [Refresh 1% Ophth Drops] 1 each OPTH PRN PRN 10/22/23 Cholecalciferol (Vitamin D3) [Vitamin D3] 1,000 unit PO DAILY 10/22/23 Furosemide [Lasix] 20 mg PO DAILY 10/22/23 Conway-3/Dha/Epa/Fish Oil [Fish Oil 1,000 mg Softgel] 1 each PO DAILY 10/22/23 Pramoxine HCl [Proctofoam] 1 applic TP PRN PRN 10/22/23 Psyllium Husk [Metamucil] 2 cap PO PRN PRN 10/22/23 Telmisartan 40 mg PO BID 10/22/23 gemfibroziL [Lopid] 600 mg PO BIDAC 10/22/23 Allergies/Adverse Reactions: Allergies Allergy/AdvReac Type Severity Reaction Status Date / Time aspirin Allergy Unknown Verified 10/28/23 11:28 erythromycin base Allergy Unknown Verified 10/28/23 11:28 eucalyptus Allergy Unknown Verified 10/28/23 11:28 NSAIDS (Non-Steroidal Allergy Unknown Verified 10/28/23 11:28 Anti-Inflamma Afsmoxs-XEL-WcI Reductase Allergy Unknown Verified 10/28/23 11:28 Inhibitor [Juknrzj-Xne-Mte Reductase Inhibitor] Anes History & Medical History - Anesthetic History Anesthesia Complications: reports: No previous complications Family history of Anesthesia Complications: Denies Family history of Malignant Hyperthermia: Denies - Medical History Cardiovascular: reports: Congestive heart failure, Hypertension, Coronary artery disease, PA, Atrial fibrillation Pulmonary: reports: Shortness of breath Gastrointestinal: reports: GI bleed, Ulcers, Hemorrhoids Urinary: reports: Incontinence Musculoskeletal: reports: Osteoarthritis, Chronic back pain Endocrine/Autoimmune: reports: Type 2 diabetes Skin: reports: None Smoking Status: Never smoker - Surgical History General: reports: Cholecystectomy, Colonoscopy, EGD Eyes Ears Nose Throat (EENT): reports: Cataracts Gynecologic: reports: Hysterectomy, Oophrectomy Orthopedic: reports: Hip replacement, Knee replacement, Rotator cuff repair Exam General: Alert, Oriented x3, Cooperative Dental: Other (several implants, nothing removable) Mallampati classification: II Thyromental Distance: 4-6 cm Respiratory: Lungs clear, Normal breath sounds, No respiratory distress Cardiovascular: Other (AF) Neurological: Normal speech Mental/Cognitive Status: Alert/Oriented X3, Normal for patient Plan Anesthesia Type: General Consent for Procedure(s) Verified and Reviewed: Yes Code Status: Attempt Resuscitation ASA classification: 3-Severe systemic disease Is this case an emergency?: No
[2023-10-28 13:09] VITALS: BP 83/51; O2SAT 100
--- NOTE | 2023-10-28 14:32 | ANESTHESIA POST OP EVALUATION ---
Anesthesia Post Eval - Post Anesthesia Eval Vitals: Last Vital Signs Temp 36.3 C L 10/28/23 13:01 Pulse 78 10/28/23 13:01 Resp 14 10/28/23 13:01 BP 83/51 L 10/28/23 13:01 Pulse Ox 100 10/28/23 13:01 O2 Flow Rate CV Function Including HR & BP: Stable Pain Control: Satisfactory Nausea & Vomiting: Negative Mental Status: Baseline Respiratory Status: Airway Patent Hydration Status: Satisfactory Anesthesia Complications: None
== END 2023-10-28 10:55 | disposition home or self-care (01) ==
LOC: SDS 10:54
PROVIDERS: ATTEND Surgery
PROC: 0DBN8ZX Excision of Sigmoid Colon, Via Natural or Artificial Opening Endoscopic, Diagnostic (ICD-10-PCS; 2023-10-28)
PROC: 0DBM8ZX Excision of Descending Colon, Via Natural or Artificial Opening Endoscopic, Diagnostic (ICD-10-PCS; 2023-10-28)
PROC: 0DBH8ZX Excision of Cecum, Via Natural or Artificial Opening Endoscopic, Diagnostic (ICD-10-PCS; principal; 2023-10-28 12:45)
DX: K62.5 Hemorrhage of anus and rectum (principal); K52.9 Noninfective gastroenteritis and colitis, unspecified; D12.2 Benign neoplasm of ascending colon; K63.5 Polyp of colon; I13.0 Hypertensive heart and chronic kidney disease with heart failure and stage 1 through stage 4 chronic kidney disease, or unspecified chronic kidney disease; I50.9 Heart failure, unspecified; N18.9 Chronic kidney disease, unspecified; E11.22 Type 2 diabetes mellitus with diabetic chronic kidney disease; I48.91 Unspecified atrial fibrillation; Z79.01 Long term (current) use of anticoagulants; I25.2 Old myocardial infarction
CPT/HCPCS: 45380; J7120

== ENCOUNTER 2024-05-18 08:55 | Inpatient (IN) ==
--- NOTE | 2024-05-18 09:23 | XRAY Report ---
PROCEDURE: XR Chest 1V INDICATIONS: Shortness of breath. History of CHF. ?pleural edema TECHNIQUE: One view of the chest was acquired. COMPARISON: None. FINDINGS: Surgical changes and devices: Cholecystectomy clips. Lungs and pleura: No pleural pneumothorax. Trace right pleural effusion. No consolidation. Mediastinum: Mediastinal contours appear normal. Heart is enlarged. Bones and chest wall: No suspicious bony lesions. Overlying soft tissues appear unremarkable. IMPRESSION: Cardiomegaly. Trace right pleural effusion. Reviewed by: Nia Alfaro MD, PhD on 05/18/2024 9:21 AM PDT Approved by: Nia Alfaro MD, PhD on 05/18/2024 9:21 AM PDT Station ID: [id number]
--- OUTSIDE RECORDS SUMMARY | 2024-05-18 09:26 | EXTERNAL MEDICAL SUMMARY RPT | Continuity of Care Document ---
Author Organization [facility] Address [address] [place] [id number] Phone Problems date description facility 2024-02-19 13:02 Heart failure, unspecified [facility] 2024-02-19 13:02 [facility] 13[facility]02 [facility]24-02-19 13:02 Shortness of breath [facility] 2024-03-11 10:31 Chronic diastolic (congestive) [facility] 2024-03-11 11:52 Chronic diastolic (congestive) heart [facility] 2024-03-12 00:05 Chronic diastolic (congestive) heart failure [facility] 2024-04-12 15:03 [facility] 2024-04-12 15:03 [facility] 2024-04-12 15:32 Acute cough [facility] 2024-04-12 15:32 [facility] 2024-04-13 00:03 Acute cough [facility] 2024-04-13 00:03 [facility] 2024-04-22 13:38 Nutritional anemia, unspecified [facility] 2024-04-22 13:38 Essential (primary) [facility]io [facility] 2024-04-23 00:04 Nutritional anemia, unspecified [facility] 2024-04-23 00:04 Essential (primary) hypertensio n [facility] 2024-04-23 07:47 [facility] 2024-04-23 07:47 [facility] 2024-04-23 09:23 Nutritional anemia, unspecified [facility] 2024-04-23 09:23 Essential (primary) hypertensio n [facility] 2024-04-23 09:27 Nutritional anemia, unspecified [facility] 2024-04-23 09:27 Essential (primary) hypertensio n [facility] 2024-04-27 10:21 Essential (primary) [facility] Results/Labs test date facility value unit notes Result panel 1 ANION GAP 2024-03-11 10:36 [facility] 10.0 (missing ) (missing) BNP - B-NATRIURETIC PEPTIDE 2024-03-11 10:36 [facility] 1311 pg/ml (missing) SODIUM 2024-03-11 10:36 [facility] 135 mmol/l As of August 2022 testing method has changed, this may include reference ranges. CREATININE 2024-03-11 10:36 [facility] 2.2 mg/dl As of August 2022 testing method has changed, this may include reference ranges. GFR - MDRD 2024-03-11 10:36 [facility] 21 (ophelia macias) Social History date description facility
[2024-05-18 09:32] LABS: BASOPHILS % (AUTO) 0.4 %; EOSINOPHILS # (AUTO) 0.2 10^3/uL (0.0-0.7); EOSINOPHILS % (AUTO) 1.7 %; HCT - HEMATOCRIT 27.8 % (37.0-47.0); HGB - HEMOGLOBIN 8.5 g/dL (12.0-16.0); LYMPHOCYTES # (AUTO) 1.6 10^3/uL (1.5-3.5); LYMPHOCYTES % (AUTO) 16.6 %; MEAN CORPUSCULAR HEMOGLOBIN 32.8 pg (27.0-31.0); MEAN CORPUSCULAR HGB CONC 30.6 g/dL (32.0-36.0); MEAN CORPUSCULAR VOLUME 107.3 fL (81.0-99.0); MEAN PLATELET VOLUME 8.4 fL (7.9-10.8); MONOCYTES # (AUTO) 0.6 10^3/uL (0.0-1.0); MONOCYTES % (AUTO) 6.6 %; NEUTROPHILS # (AUTO) 6.9 10^3/uL (1.5-6.6); NEUTROPHILS % (AUTO) 74.2 %; NRBC ABSOLUTE COUNT (AUTO) 0.08 x10^3/uL; NUCLEATED RED BLOOD CELLS AUTO 0.9 /100WBC; PLT - PLATELET COUNT 297 10^3/uL (130-450); RED BLOOD COUNT 2.59 10^6/uL (4.20-5.40); WHITE BLOOD COUNT 9.3 x10^3/uL (4.8-10.8)
[2024-05-18 09:46] LABS: ALBUMIN 3.7 g/dL (3.2-5.5); ALBUMIN/GLOBULIN RATIO 1.6 (1.0-2.2); BILIRUBIN,TOTAL 0.5 mg/dL (0.2-1.0); CALCIUM 8.6 mg/dL (8.5-10.3); PHOSPHORUS 4.9 mg/dL (2.5-5.0); POTASSIUM 4.3 mmol/L (3.5-4.5)
--- NOTE | 2024-05-18 11:38 | ED Physician Documentation ---
History of Present Illness Stated complaint Stated Complaint: SOA Chief complaint Chief Complaint: Cardiac History obtained from History obtained from: Patient History of Present Illness Timing: Prior to arrival Additonal information Additional information: Patient is an 88-year-old female with past medical history of CHF and history of atrial fibrillation on Xarelto presents to the emergency department with increasing shortness of breath and lower leg swelling. She notes her PCP stopped her Lasix on the due to worsening creatinine elevation. She notes since then she has worsening difficulty breathing increased weight gain of 20 to 25 pounds and increased weeping of her legs. She is sleeping in a recliner but last night was unable to sleep due to persistent shortness of breath. She has no chest pain associated with that no fevers associated with it no cough or wheezing. She notes it feels as if she is having trouble catching her breath even while at rest. Meds/Allgy Home Medications Ambulatory Orders Medication Instructions Recorded Confirmed multivitamin 1 cap PO DAILY 10/23/17 05/18/24 acetaminophen 500 mg tablet 1,000 mg PO Q6H PRN fever or pain 10/22/23 05/18/24 carboxymethylcellulose sodium 1 % 1 ea OPTH PRN PRN As Needed Per 10/22/23 05/18/24 eye gel in a dropperette (Refresh Provider Orders Celluvisc) cholecalciferol (vitamin D3) 25 1,000 unit PO DAILY 10/22/23 05/18/24 mcg (1,000 unit) capsule omega 8-anu-aph-fish oil 300 1 ea PO DAILY 10/22/23 05/18/24 mg-1,000 mg capsule (Fish Oil) psyllium husk 0.52 gram capsule 2 cap PO DAILY As Needed Per 10/22/23 05/18/24 (Metamucil) Provider Orders furosemide 20 mg tablet 40 mg PO DAILY 03/02/24 05/18/24 rivaroxaban 20 mg tablet (Xarelto) 15 mg PO DAILY 03/02/24 05/18/24 metoprolol succinate 100 mg 200 mg PO DAILY 05/18/24 05/18/24 tablet,extended release 24 hr Allergies Allergies Allergy/AdvReac Type Severity Reaction Status Date / Time aspirin Allergy Severe Unknown Verified 05/18/24 08:57 erythromycin base Allergy Severe Unknown Verified 05/18/24 08:57 eucalyptus Allergy Severe Unknown Verified 05/18/24 08:57 NSAIDS (Non-Steroidal Allergy Severe Unknown Verified 05/18/24 08:57 Anti-Inflamma Wlqplas-ZOO-OiF Reductase Allergy Severe Unknown Verified 05/18/24 08:57 Inhibitor (Sexmxjq-Ltn-Qvn Reductase Inhibitor) PFSH Active Problems All Active Problems (Updated 05/18/24 @ 11:49 by Irais Perez PA-C) Shortness of breath (Acute) Acute cough (Acute) Hypertension (Acute) Cellulitis of right lower leg (Acute) Laceration of left hand (Acute) Encounter for removal of nasal pack (Acute) Epistaxis (Acute) Cellulitis (Acute) NSTEMI (non-ST elevated myocardial infarction) (Acute) Acute CHF (Acute) Medical History Medical History (Updated 05/18/24 @ 11:49 by Irais Perez PA-C) A-fib Social History Social History (Updated 05/18/24 @ 10:42 by Giovani Tucker RN) Smoking Status: Former smoker Do you dip or chew tobacco?: No Do you vape?: No Relationship: Level: Assisted Home Mobility Equipment: Wheeled walker Do you feel safe in your home environment?: Yes Suffered physical, verbal, emotional, or financial abuse?: No History of Abuse: No ETOH Use: None Frequency: Occasional Substance Use: denies use POLST Patient has POLST: No Exam Exam Vital Signs: Vital Signs x48h Temp Pulse Resp BP Pulse Ox 05/18/24 10:43 73 14 151/87 H 97 05/18/24 08:57 36.2 C L 102 H 18 142/99 H 97 Constitutional normal general appearance HENMT normocephalic and head/scalp atraumatic Normal mucous membranes. Eyes PERRL, EOMs intact bilaterally and conjunctivae normal Neck/C-Spine visual inspection normal Dilated external JVD Chest inspection of chest normal Respiratory Diffuse crackles on auscultation of the lungs. Cardiovascular normal heart rate noted, no gallop and no rub Irregular rhythm Gastrointestinal abdomen normal to inspection, abdomen soft to palpation and nontender to palpation Genitourinary no CVA tenderness Back/Pelvis spine normal to inspection Extremities normal to inspection Significant swelling 3+ edema up to mid thigh on examination Skin skin color normal, no rash and no lesions Results Vitals Vitals: Vital Signs - 24 hr 05/18/24 08:57 05/18/24 10:43 Temperature 36.2 C L Temperature Source Temporal Artery Scan Pulse Rate 102 H 73 Respiratory Rate 18 14 Blood Pressure 142/99 H 151/87 H O2 Saturation 97 97 O2 Source Room air Room air Pain Intensity 0 0 Oxygen O2 Source Room air EKG (time done) EKG: EKG releavant findings:: EKG personally interpreted by author of this note. Relevant findings are: Patient is in atrial fibrillation no change from EKG on [address] changes concerning for ischemia. Rate: Rate (enter#) (81 bpm) [place]: Normal Intervals: Normal HI QRS: QRS normal Compare to prior EKG: Unchanged from prior EKG Computer interpretation: Agree with computer Labs Labs: Laboratory Tests 05/18/24 05/18/24 09:25 09:29 WBC 9.3 RBC 2.59 L Hgb 8.5 L Hct 27.8 L MCV 107.3 H MCH 32.8 H MCHC 30.6 L RDW 17.0 H Plt Count 297 MPV 8.4 Neut # (Auto) 6.9 H Lymph # (Auto) 1.6 [place] # (Auto) 0.6 Eos # (Auto) 0.2 Baso # (Auto) 0.0 Absolute Nucleated RBC 0.08 Nucleated RBC % 0.9 Sodium 138 Potassium 4.3 Chloride 107 Carbon Dioxide 19 L Anion Gap 12.0 BUN 59 H Creatinine 3.0 H Estimated GFR (MDRD) 15 L Glucose 127 H Calcium 8.6 Phosphorus 4.9 Magnesium 2.0 Total Bilirubin 0.5 AST 66 H ALT 62 H Alkaline Phosphatase 78 B-Natriuretic Peptide Cancelled 3821 H Total Protein 6.0 L Albumin 3.7 Globulin 2.3 Albumin/Globulin Ratio 1.6 Lipase 169 H Rads (name of study) Chest X-ray: Relevant Findings:: Final report received and EMP independent interpretation of test PD Medical Decision Making ED course Complexity details: reviewed old records and reviewed results ED course: Patient 88-year-old female presenting with shortness of breath significant lower leg swelling increasing weight and recently discontinued on her Lasix about 2 weeks ago. She had worsening creatinine function at her most recent appointment with Dr. Oconnor. She notes he recommended she discontinue her Lasix but since then she continues to have swelling in her legs she continues to have shortness of breath difficulty breathing orthopnea and frequency with urination. Vitals here in the ED are stable she is normotensive afebrile nontachycardic EKG shows atrial fibrillation which is a known history for patient. Her labs are concerning for BNP in the 2999's she has creatinine of 3 with no electrolyte abnormalities baseline creatinine level appears closer to 2 but it did improve after her Lasix was stopped and labs were drawn on the . .She has a chest x-ray showing cardiomegaly and left-sided pleural effusion her lungs sound generally clear but significant pain edema and dilation of her extra JVD concerning for fluid overload. Discussed with on-call cardiology at [facility] who reviewed her previous echo on the showing EF of 60 to 70% significant apical hypertrophy and moderate to severe aortic stenosis. Patient agreeable with admission at this time and I discussed with on-call hospitalist Dr. Olivares who is agreeable with admission. Patient remained stable here in the ED so will have patient admitted to observation status. Discharge Plan Discharge Patient Disposition: 66 [facility] DC/Xfer Condition: Good Clinical Impression: Shortness of breath Acute CHF Qualifiers: Heart failure type: unspecified Qualified Code(s): I50.9 - Heart failure, unspecified Prescriptions: No Action multivitamin 1 EACH capsule 1 cap PO DAILY Xarelto 20 mg tablet 15 mg PO DAILY acetaminophen 500 MG tablet 1,000 mg PO Q6H PRN (Reason: fever or pain) cholecalciferol (vitamin D3) 25 MCG capsule 1,000 unit PO DAILY psyllium husk [Metamucil] 0.52 GM capsule 2 cap PO DAILY carboxymethylcellulose sodium [Refresh Celluvisc] 15 DROPS/0.4 ML dropperette,gel 1 ea OPTH PRN PRN (Reason: As Needed Per Provider Orders) omega 1-sgt-iwe-fish oil [Fish Oil] 1 EACH capsule 1 ea PO DAILY furosemide 20 mg tablet 40 mg PO DAILY metoprolol succinate 100 mg tablet extended release 24 hr 200 mg PO DAILY Print Language: Salvadorean
[2024-05-18 11:42] LABS: BILIRUBIN,URINE NEGATIVE (NEGATIVE); GLUCOSE, URINE (UA) NEGATIVE (NEGATIVE); KETONES,URINE (UA) NEGATIVE (NEGATIVE); LEUKOCYTE ESTERASE, URINE NEGATIVE (NEGATIVE); NITRITE,URINE NEGATIVE (NEGATIVE); OCCULT BLOOD,URINE LARGE (NEGATIVE); PH,URINE 5.5 PH (5.0-7.5); PROTEIN,URINE 100 mg/dL (NEGATIVE); UROBILINOGEN,URINE 0.2 (NORMAL) E.U./dL (NORMAL)
[2024-05-18 11:54] LABS: BACTERIA,URINE Few /HPF (None Seen); CLARITY,URINE SL. CLOUDY (CLEAR); RBC,URINE 0-5 /HPF (0-5); SQUAMOUS EPITHELIAL CELL,UR NONE SEEN (<= Few); YEAST,URINE PRESENT
--- NOTE | 2024-05-18 12:37 | ED Physician Documentation ---
History of Present Illness Stated complaint Stated Complaint: SOA Chief complaint Chief Complaint: Cardiac Meds/Allgy Home Medications Ambulatory Orders Medication Instructions Recorded Confirmed multivitamin 1 cap PO DAILY 10/23/17 05/18/24 acetaminophen 500 mg tablet 1,000 mg PO Q6H PRN fever or pain 10/22/23 05/18/24 carboxymethylcellulose sodium 1 % 1 ea OPTH PRN PRN As Needed Per 10/22/23 05/18/24 eye gel in a dropperette (Refresh Provider Orders Celluvisc) cholecalciferol (vitamin D3) 25 1,000 unit PO DAILY 10/22/23 05/18/24 mcg (1,000 unit) capsule omega 8-jlm-fnq-fish oil 300 1 ea PO DAILY 10/22/23 05/18/24 mg-1,000 mg capsule (Fish Oil) psyllium husk 0.52 gram capsule 2 cap PO DAILY As Needed Per 10/22/23 05/18/24 (Metamucil) Provider Orders furosemide 20 mg tablet 40 mg PO DAILY 03/02/24 05/18/24 rivaroxaban 20 mg tablet (Xarelto) 15 mg PO DAILY 03/02/24 05/18/24 metoprolol succinate 100 mg 200 mg PO DAILY 05/18/24 05/18/24 tablet,extended release 24 hr Allergies Allergies Allergy/AdvReac Type Severity Reaction Status Date / Time aspirin Allergy Severe Unknown Verified 05/18/24 08:57 erythromycin base Allergy Severe Unknown Verified 05/18/24 08:57 eucalyptus Allergy Severe Unknown Verified 05/18/24 08:57 NSAIDS (Non-Steroidal Allergy Severe Unknown Verified 05/18/24 08:57 Anti-Inflamma Yvhiuci-YXP-UmS Reductase Allergy Severe Unknown Verified 05/18/24 08:57 Inhibitor (Nzytbxs-Owk-Vwz Reductase Inhibitor) PFSH Active Problems All Active Problems (Updated 05/18/24 @ 11:49 by Irais Perez PA-C) Shortness of breath (Acute) Acute cough (Acute) Hypertension (Acute) Cellulitis of right lower leg (Acute) Laceration of left hand (Acute) Encounter for removal of nasal pack (Acute) Epistaxis (Acute) Cellulitis (Acute) NSTEMI (non-ST elevated myocardial infarction) (Acute) Acute CHF (Acute) Medical History Medical History (Updated 05/18/24 @ 11:49 by Irais Perez PA-C) A-fib Social History Social History (Updated 05/18/24 @ 10:42 by Giovani Tucker RN) Smoking Status: Former smoker Do you dip or chew tobacco?: No Do you vape?: No Relationship: Level: Assisted Home Mobility Equipment: Wheeled walker Do you feel safe in your home environment?: Yes Suffered physical, verbal, emotional, or financial abuse?: No History of Abuse: No ETOH Use: None Frequency: Occasional Substance Use: denies use POLST Patient has POLST: No Exam Exam Vital Signs: Vital Signs x48h Temp Pulse Resp BP Pulse Ox 05/18/24 12:23 83 20 151/87 H 96 05/18/24 10:43 73 14 151/87 H 97 05/18/24 08:57 36.2 C L 102 H 18 142/99 H 97 Results Vitals Vitals: Vital Signs - 24 hr 05/18/24 08:57 05/18/24 10:43 05/18/24 12:23 Temperature 36.2 C L Temperature Source Temporal Artery Scan Pulse Rate 102 H 73 83 Respiratory Rate 18 14 20 Blood Pressure 142/99 H 151/87 H 151/87 H O2 Saturation 97 97 96 O2 Source Room air Room air Room air Pain Intensity 0 0 0 Oxygen O2 Source Room air Labs Labs: Laboratory Tests 05/18/24 05/18/24 05/18/24 09:25 09:29 11:30 WBC 9.3 RBC 2.59 L Hgb 8.5 L Hct 27.8 L MCV 107.3 H MCH 32.8 H MCHC 30.6 L RDW 17.0 H Plt Count 297 MPV 8.4 Neut # (Auto) 6.9 H Lymph # (Auto) 1.6 [place] # (Auto) 0.6 Eos # (Auto) 0.2 Baso # (Auto) 0.0 Absolute Nucleated RBC 0.08 Nucleated RBC % 0.9 Sodium 138 Potassium 4.3 Chloride 107 Carbon Dioxide 19 L Anion Gap 12.0 BUN 59 H Creatinine 3.0 H Estimated GFR (MDRD) 15 L Glucose 127 H Calcium 8.6 Phosphorus 4.9 Magnesium 2.0 Total Bilirubin 0.5 AST 66 H ALT 62 H Alkaline Phosphatase 78 B-Natriuretic Peptide Cancelled 3821 H Total Protein 6.0 L Albumin 3.7 Globulin 2.3 Albumin/Globulin Ratio 1.6 Lipase 169 H Urine Color YELLOW Urine Clarity SL. CLOUDY Urine pH 5.5 Ur Specific [place] 1.020 Urine Protein 100 H Urine Glucose (UA) NEGATIVE Urine Ketones NEGATIVE Urine Occult Blood LARGE H Urine Nitrite NEGATIVE Urine Bilirubin NEGATIVE Urine Urobilinogen 0.2 (NORMAL) Ur Leukocyte Esterase NEGATIVE Urine RBC 0-5 Urine WBC 4-5 Ur Squamous Epith Cells NONE SEEN Urine Bacteria Few Urine Yeast PRESENT Urine Culture Comments NOT INDICATED PD Medical Decision Making ED course Complexity details: reviewed old records and reviewed results ED course: While here in the ED waiting to be transferred to the floor patient was on telemetry and had notably 10 beats of V. tach. She was completely asymptomatic during this, we were able to record on telemetry she had repeat EKG performed showing no prolonged QTc. Magnesium was added on and Dr. Olivares was updated. She declined wanting to start on any amiodarone right now but patient will be remaining on telemetry in hospital. Discharge Plan Discharge Patient Disposition: [facility] DC/Xfer Condition: Good Clinical Impression: Shortness of breath Acute CHF Qualifiers: Heart failure type: unspecified Qualified Code(s): I50.9 - Heart failure, unspecified Prescriptions: No Action multivitamin 1 EACH capsule 1 cap PO DAILY Xarelto 20 mg tablet 15 mg PO DAILY acetaminophen 500 MG tablet 1,000 mg PO Q6H PRN (Reason: fever or pain) cholecalciferol (vitamin D3) 25 MCG capsule 1,000 unit PO DAILY psyllium husk [Metamucil] 0.52 GM capsule 2 cap PO DAILY carboxymethylcellulose sodium [Refresh Celluvisc] 15 DROPS/0.4 ML dropperette,gel 1 ea OPTH PRN PRN (Reason: As Needed Per Provider Orders) omega 3-erv-mgh-fish oil [Fish Oil] 1 EACH capsule 1 ea PO DAILY furosemide 20 mg tablet 40 mg PO DAILY metoprolol succinate 100 mg tablet extended release 24 hr 200 mg PO DAILY Print Language: Malaysian
[2024-05-18] MEDS: MAGNESIUM SULFATE 2 GRAM 2 GM/50 ML BAG IV ONE (12:41)
[2024-05-18] MEDS ORDERED: SODIUM CHLORIDE FLUSH 0.9% 10 ML SYRINGE IVP PRN (13:32)
[2024-05-18] MEDS: ACETAMINOPHEN 500 MG TABLET PO PRN (13:40)
[2024-05-18] MEDS: FUROSEMIDE 40 MG/4 ML VIAL IVP SCH (13:40)
--- NOTE | 2024-05-18 13:44 | HISTORY & PHYSICAL EXAMINATION ---
Chief Complaint Chief Complaint Chief Complaint: Dyspnea w/ exertion and leg swelling History of Present Illness Admitted From Admitted From:: ER History Obtained From History obtained from: Patient History of Present Illness HPI Comment/Other: Patient is an 88-year-old female with a PMH significant for HTN, HLD, atrial fibrillation on xeralto, and CHF. She was brought to the ER from her assisted living facility with SOB and increased LE edema. She states her social work specialist stopped her lasix on April 29 d/t an elevation of her creatinine from 0.8 to 1.3. Today her creatinine is 3.0. Over the last 3 weeks, her dyspnea has worsened and she is unable to complete her usual laps around her facility or walk to the cafeteria without resting. Her LE swelling has also worsened and she has noticed a 20-25 lbs increase in her weight as well as weeping wounds on her legs, which are now healed. She says she sometimes wears "semi-compression boot socks" to help. Another recent change is her inability to sleep d/t persistent PND. She sleeps in a medical bed (ER note says she sleeps in a recliner) which allows for her to have her head and legs elevated, but this has not been helping her shortness of breath as of late. During rest she usually has no difficulty breathing, however, she says if she talks a lot then she will start to struggle. I did not observe this during my exam, she appeared unlabored and spoke at length without issue. She has no chest pain, cough, wheezing, fever, or chills. She does admit to being dizzy during the exam but says it's more d/t how tired she is. She has a bruise on her left cheondoism but says it is from accidentally hitting her head with the freezer door. This morning she did not take her medications but reports that these are primarily metoprolol, xeralto, some vitamins, and tylenol (3000 mg/day). She has a history of hyperglycemia/DM2 but was able to improve her A1c with lifestyle modifications. She says she was a social smoker for over 30 years but stopped in 1972. She no longer drinks alcohol and denies any substance use. She lives in an apartment with her , Lobito, in an assisted living facility. After changes in her health and having more birthdays, she reports that her is her designated decision maker and that she would like to be DNR. Meds/Allgy Home Medications Ambulatory Orders Medication Instructions Recorded Confirmed multivitamin 1 cap PO DAILY 10/23/17 05/18/24 acetaminophen 500 mg tablet 1,000 mg PO Q6H PRN fever or pain 10/22/23 05/18/24 carboxymethylcellulose sodium 1 % 1 ea OPTH PRN PRN As Needed Per 10/22/23 05/18/24 eye gel in a dropperette (Refresh Provider Orders Celluvisc) cholecalciferol (vitamin D3) 25 1,000 unit PO DAILY 10/22/23 05/18/24 mcg (1,000 unit) capsule omega 9-bst-skj-fish oil 300 1 ea PO DAILY 10/22/23 05/18/24 mg-1,000 mg capsule (Fish Oil) psyllium husk 0.52 gram capsule 2 cap PO DAILY As Needed Per 10/22/23 05/18/24 (Metamucil) Provider Orders metoprolol succinate 100 mg 100 mg PO Q12H 05/18/24 05/18/24 tablet,extended release 24 hr rivaroxaban 15 mg tablet (Xarelto) 15 mg PO QPM 05/18/24 05/18/24 Allergies Allergies Allergy/AdvReac Type Severity Reaction Status Date / Time aspirin Allergy Severe Unknown Verified 05/18/24 08:57 erythromycin base Allergy Severe Unknown Verified 05/18/24 08:57 eucalyptus Allergy Severe Unknown Verified 05/18/24 08:57 NSAIDS (Non-Steroidal Allergy Severe Unknown Verified 05/18/24 08:57 Anti-Inflamma Wakgpgs-QJJ-JpV Reductase Allergy Severe Unknown Verified 05/18/24 08:57 Inhibitor (Xdamkuc-Ejf-Dcz Reductase Inhibitor) PFSH Active Problems All Active Problems (Updated 05/18/24 @ 14:00 by Rell Grey MD) Acute exacerbation of CHF (congestive heart failure) (Acute) YARON (acute kidney injury) (Acute) Shortness of breath (Acute) Acute cough (Acute) Hypertension (Acute) Cellulitis of right lower leg (Acute) Laceration of left hand (Acute) Encounter for removal of nasal pack (Acute) Epistaxis (Acute) Cellulitis (Acute) NSTEMI (non-ST elevated myocardial infarction) (Acute) Acute CHF (Acute) Medical History Medical History (Updated 05/18/24 @ 14:00 by Rell Grey MD) A-fib Social History Social History (Updated 05/18/24 @ 10:42 by Giovani Tucker RN) Smoking Status: Former smoker If you are a former smoker, when did you quit? (Date/Year): 1973 How many cigarettes a day do you smoke? (20 cigarettes=1 Pk): 1 Second hand tobacco smoke exposure: No Do you dip or chew tobacco?: No Do you vape?: No Patient requests smoking cessation consult: No Initiate information on smoking cessation: No Relationship: Level: Assisted Home Mobility Equipment: Wheeled walker Do you feel safe in your home environment?: Yes Suffered physical, verbal, emotional, or financial abuse?: No History of Abuse: No ETOH Use: None Frequency: Occasional Substance Use: denies use POLST Patient has POLST: No Review of Systems Status of ROS: 10 or more systems reviewed and unremarkable except as noted in history and below Constitutional Reports: Weight gain and Change in sleep pattern Eyes Reports: Dry eyes (hx of bilateral cataracts ) Cardiovascular Reports: Irregular heart rate, edema, swelling of feet/ankles, shortness of breath with exertion, shortness of breath when lying down, Decreased exercise tolerance and leg pain with exertion ("more of a discomfort bc of the swelling") Respiratory Reports: Shortness of breath, SOB at rest and SOB with exertion Musculoskeletal Reports: Extremity swelling (upper and lower extremities. ), Joint swelling and Muscle pain Neurological Reports: Headache, General weakness and Dizziness (sometimes when SOB) Prior Level of Functionality: Able to walk to and from her meals and other rooms in her facility. Exam Exam Vital Signs: Vital Signs x48h Temp Pulse Pulse Resp BP BP Pulse Ox 05/18/24 13:52 97.3 F L 91 18 149/98 H 97 05/18/24 12:23 83 20 151/87 H 96 05/18/24 10:43 73 14 151/87 H 97 05/18/24 08:57 97.2 F L 102 H 18 142/99 H 97 88 yo female who looks her stated age and is very talkative with normal thought processes and content. SPO2 remained 95-98 during exam. Constitutional normal general appearance, no apparent distress and alert HENMT normocephalic, head/scalp atraumatic, external ears normal and external nose normal Eyes PERRL, EOMs intact bilaterally, conjunctivae normal, no scleral icterus and normal visual joyner by confrontation Neck/C-Spine visual inspection normal, trachea midline, supple and no carotid bruits Chest inspection of chest normal and palpation of chest normal Respiratory breath sounds equal bilaterally, normal respiratory effort (Inspiratory phase slightly shorter than expiratory. ), clear to auscultation bilaterally, no wheezes, no rales, no retractions and no use of accessory muscles Cardiovascular no JVD Irregular rhythm. Normal rate. Systolic murmur heard over LSB 2nd ICS. Gastrointestinal abdomen normal to inspection, abdomen soft to palpation, nontender to palpation and nondistended Genitourinary no CVA tenderness and bladder normal to palpation Extremities 2+ pitting edema of bilateral LE (knee-toes). Right shoulder has limited ROM d/t previous injury. Strength equal bilaterally in all four extremities. Neurology senior economist II-XII intact, no movement abnormality noted, no focal motor deficit noted, no sensory deficits noted, speech normal, no fasciculations noted and GCS 15 Psychiatry mental status grossly normal, oriented x3, thought process normal, cooperative, affect normal and memory normal Skin skin color normal, no lesions and no jaundice LE skin was shinny and lacked hair. Scar outline of healed wound on right jay over tibia. Conclusion/Plan Problem List (1) Acute exacerbation of CHF (congestive heart failure): Plan: Patient presented with SOB and LE edema after stopping her lasix on April 29 d/t an elevation of her creatinine. At the time her creatinine was 1.3 and today it is 3.0. Her CHF is likely contributing to her decreased kidney function so we will admit and slowly diurese her as indicated by her improvement of symptoms. Unsure when her last echo was but she meets regularly with her social work specialist, so we will attempt to get her records. She has no sign of infection w/ normal lung sounds, afebrile, normal WBC, and lack of urinary symptoms. * Start furosemide 40 mg IVP BID * Initiate eliquis 5mg PO BID * Continue metoprolol 200 mg PO daily (home medication) * Monitor telemetry Q4HR * Monitor kidney function via daily BMPs * Obtain echo records or repeat echo if unobtainable. Qualifiers: Heart failure type: unspecified Qualified Code(s): I50.9 - Heart failure, unspecified (2) YARON (acute kidney injury): Plan: Since April 29, her creatinine has been increasing. It was originally 1.3 on the , then up to 3.3 on the , and is 3.0 today. She stopped her lasix on the , however, she has become more symptomatic and would benefit from diuretic treatment. * Start furosemide 40 mg IVP BID * Monitor kidney function via daily BMPs (3) A-fib: Plan: Patient with longstanding history of atrial fibrillation. Currently ventricular rate is controlled. * Continue metoprolol * Continue Eliquis (interchange for Xarelto in the hospital) Qualifiers: Atrial fibrillation type: unspecified Qualified Code(s): I48.91 - Unspecified atrial fibrillation Plan Admit for observation and IV diuretics. Lab Results Lab results reviewed: Yes 05/18/24 09:25 05/18/24 09:25 Diagnostic Imaging Results Diagnostic Imaging Results Comments: CXR 05/18/24 FINDINGS: * Surgical changes and devices: Cholecystectomy clips. * Lungs and pleura: No pleural pneumothorax. Trace right pleural effusion. No consolidation. * Mediastinum: Mediastinal contours appear normal. Heart is enlarged. * Bones and chest wall: No suspicious bony lesions. Overlying soft tissues appear unremarkable. IMPRESSION: * Cardiomegaly. * Trace right pleural effusion. EKG Results EKG Interpreted Independently: No EKG Findings: EKGs have not been uploaded to chart -- in ER, provider noted 10 beats of V.tach but EKG showed no prolonged QTc. Magnesium was ordered and given. Core Measures DVT/VTE - Prophylaxis VTE/DVT Device ordered at admit?: Yes VTE/DVT Prophylaxis med ordered at admit?: Yes
--- NOTE | 2024-05-18 15:56 | PHARMACY PROGRESS NOTE ---
Best Possible Medication History Admit Date and Time: 05/18/24 [id number] Home Medications Medication Instructions Recorded Confirmed Type multivitamin 1 cap PO DAILY 10/23/17 05/18/24 History acetaminophen 500 mg tablet 1,000 mg PO Q6H PRN fever or pain 10/22/23 05/18/24 History carboxymethylcellulose sodium 1 % 1 ea OPTH PRN PRN As Needed Per 10/22/23 05/18/24 History eye gel in a dropperette (Refresh Provider Orders Celluvisc) cholecalciferol (vitamin D3) 25 1,000 unit PO DAILY 10/22/23 05/18/24 History mcg (1,000 unit) capsule omega 3-zdz-fdn-fish oil 300 1 ea PO DAILY 10/22/23 05/18/24 History mg-1,000 mg capsule (Fish Oil) psyllium husk 0.52 gram capsule 2 cap PO DAILY As Needed Per 10/22/23 05/18/24 History (Metamucil) Provider Orders metoprolol succinate 100 mg 100 mg PO Q12H 05/18/24 05/18/24 History tablet,extended release 24 hr rivaroxaban 15 mg tablet (Xarelto) 15 mg PO QPM 05/18/24 05/18/24 History Processed by: Pharmacy Medications reviewed in ED?: Yes Medication History completed: Yes Patient Interview: Completed Secondary Source(s): Pharmacy records and Insurance records [facility] Statement: As the person ultimately responsible for medication therapy, providers are able to order a medication from an existing home medication list in [facility] via the "Reconcile Routine" prior to Confirmation of that medication by academic support coordinator. Such practice is discouraged except when the physician, in their clinical judgment, deems that a medical need exists for a medication without regard to previous use.
[2024-05-18] MEDS: SODIUM CHLORIDE FLUSH 0.9% 10 ML SYRINGE IVP SCH (17:23)
[2024-05-18] MEDS: APIXABAN 5 MG TABLET PO SCH (20:14)
[2024-05-19 05:19] LABS: HCT - HEMATOCRIT 26.2 % (37.0-47.0); HGB - HEMOGLOBIN 8.1 g/dL (12.0-16.0); MEAN CORPUSCULAR HEMOGLOBIN 32.9 pg (27.0-31.0); MEAN CORPUSCULAR HGB CONC 30.9 g/dL (32.0-36.0); MEAN CORPUSCULAR VOLUME 106.5 fL (81.0-99.0); MEAN PLATELET VOLUME 8.7 fL (7.9-10.8); RED BLOOD COUNT 2.46 10^6/uL (4.20-5.40); RED CELL DISTRIBUTION WIDTH 17.1 % (12.0-15.0); WHITE BLOOD COUNT 8.9 x10^3/uL (4.8-10.8)
[2024-05-19 05:34] LABS: CALCIUM 8.5 mg/dL (8.5-10.3); CREATININE 2.9 mg/dL (0.6-1.3); MAGNESIUM 2.2 mg/dL (1.7-2.3); POTASSIUM 4.4 mmol/L (3.5-4.5)
[2024-05-19] MEDS ORDERED: CARBOXYMETHYLCELLULOSE OPHTH DROPS EACHEYE PRN (08:23)
[2024-05-19] MEDS: CHOLECALCIFEROL 25 MCG TABLET PO SCH (08:25)
[2024-05-19] MEDS: OMEGA-3 ACID ETHYL ESTERS 1 GM CAPSULE PO SCH (08:25)
[2024-05-19] MEDS: MULTIVITAMIN TABLET PO SCH (08:25)
[2024-05-19] MEDS: METOPROLOL SUCCINATE 50 MG TABLET PO SCH (08:25)
[2024-05-19] MEDS: PSYLLIUM PACKET PO SCH (08:29)
--- NOTE | 2024-05-19 09:18 | PROVIDER PROGRESS NOTE ---
Subjective Subjective Subjective: Patient states that she was urinating all night. She feels like her legs are much less swollen. She has an appointment already to see a filling machine operator, in the next few months. She did have a large black bowel movement with some streaks of blood in it. She states that this has been going on for a few months. She does state it has become more regular. Of note, she did have a colonoscopy done 10/28/2023olonoscopy was technically difficult due to tortuous colon, but was successful with pediatric colonoscope. There were patchy areas of inflammation with adherent blood, erythema and friability in the cecum, and biopsies were taken. Hemorrhoid banding also recurred. Biopsies were sentthese were reviewed, and indicated a hyperplastic polyp, as well as a tubular adenoma negative for high-grade dysplasia. Current Medications Current Medications Current Medications: Current Medications Generic Name Dose Route Start Last Admin Trade Name Freq PRN Reason Stop Dose Admin Acetaminophen 1,000 mg 05/18/24 13:32 05/19/24 07:46 Acetaminophen 500 Mg Tablet PO 1,000 mg Q6H PRN Administration fever or pain Apixaban 5 mg 05/18/24 21:00 05/19/24 08:25 Apixaban 5 Mg Tablet PO 5 mg BID ABEL Administration Carboxymethylcellulose 2 drops 05/19/24 08:23 Carboxymethylcellulose Ophth Drops EACHEYE QID PRN Dry Eye Cholecalciferol 25 mcg 05/19/24 09:00 05/19/24 08:25 Cholecalciferol 25 Mcg Tablet PO 25 mcg DAILY ABEL Administration Furosemide 40 mg 05/18/24 13:00 05/19/24 08:25 Furosemide 40 Mg/4 Ml Vial IVP 40 mg BID ABEL Administration Metoprolol Succinate 200 mg 05/19/24 09:00 05/19/24 08:25 Metoprolol Succinate 50 Mg Tablet PO 200 mg DAILY ABEL Administration Multivitamins 1 tab 05/19/24 08:00 05/19/24 08:25 Multivitamin Tablet PO 1 tab DAILYWM ABEL Administration Xelkq-3-Yzcy Ethyl Esters 1 gm 05/19/24 09:00 05/19/24 08:25 [place]-3 Acid Ethyl Esters 1 Gm Capsule PO 1 gm DAILY ABEL Administration Psyllium Hydrophilic Mucilloid 1 packet 05/19/24 09:00 05/19/24 08:29 Psyllium Packet PO Not Given DAILY ABEL Sodium Chloride 10 ml 05/18/24 13:32 Sodium Chloride Flush 0.9% 10 Ml Syringe IVP PRN PRN NEEDED PER PROVIDER ORDERS Sodium Chloride 10 ml 05/18/24 17:00 05/19/24 08:25 Sodium Chloride Flush 0.9% 10 Ml Syringe IVP 10 ml 0100,0900,1700 ABEL Administration Objective Vital Signs/Intake & Output Reviewed Vital Signs: Yes Vital Signs: Vital Signs x48h Temp Pulse Resp BP Pulse Ox 05/19/24 07:23 97.5 F L 83 16 161/94 H 97 05/19/24 06:07 97.9 F 85 16 169/91 H 95 Intake & Output: Intake & Output 05/16/24 05/17/24 05/18/24 05/19/24 23:59 23:59 23:59 23:59 Intake Total 290 / 290 560 / 560 Output Total 1250 / 1250 1400 / 1400 Balance -960 / -960 -840 / -840 Weight (kg) 73.5 kg Objective General Appearance: positive No acute distress and Alert; negative Anxious Eyes Bilateral: positive Normal inspection and PERRL ENT: positive ENT inspection nml, Pharynx nml and No signs of dehydration Neck: positive Nml inspection, Thyroid nml and No JVD Respiratory: positive Chest non-tender, No respiratory distress and Breath sounds nml; negative Wheezes, Rales or Rhonchi Cardiovascular: positive No murmur, No gallop and Irregularly irregular; negative Tachycardia Abdomen: positive Non-tender, No organomegaly, Nml bowel sounds and No distention Rectal: positive Non-tender, Black stool and Bloody stool Back: positive Nml inspection; negative CVA tenderness (R) or CVA tenderness (L) Skin: positive Color nml, No rash, Warm and Dry Extremities: positive Non-tender, Full ROM, Nml appearance and Pedal edema (2+ edema bilaterally up to knees; improving ) Neurologic/Psychiatric: positive Oriented x3, Motor nml and Mood/affect nml Lab Results 05/19/24 11:47 05/19/24 04:49 Other Labs: Lab Results x24hrs 05/19/24 05/18/24 05/18/24 Range/Units 04:49 12:45 11:30 WBC 8.9 (4.8-10.8) x10^3/uL RBC 2.46 L (4.20-5.40) 10^6/uL Hgb 8.1 L (12.0-16.0) g/dL Hct 26.2 L (37.0-47.0) % MCV 106.5 H (81.0-99.0) fL MCH 32.9 H (27.0-31.0) pg MCHC 30.9 L (32.0-36.0) g/dL RDW 17.1 H (12.0-15.0) % Plt Count 302 (130-450) 10^3/uL MPV 8.7 (7.9-10.8) fL Neut # (Auto) (1.5-6.6) 10^3/uL Lymph # (Auto) (1.5-3.5) 10^3/uL [place] # (Auto) (0.0-1.0) 10^3/uL Eos # (Auto) (0.0-0.7) 10^3/uL Baso # (Auto) (0.0-0.1) 10^3/uL Absolute Nucleated RBC x10^3/uL Nucleated RBC % /100WBC Sodium 139 (135-145) mmol/L Potassium 4.4 (3.5-4.5) mmol/L Chloride 108 (101-111) mmol/L Carbon Dioxide 21 (21-32) mmol/L Anion Gap 10.0 (6-13) BUN 58 H (6-20) mg/dL Creatinine 2.9 H (0.6-1.3) mg/dL Estimated GFR (MDRD) 15 L (>89) Glucose 93 (74-104) mg/dL Calcium 8.5 (8.5-10.3) mg/dL Phosphorus (2.5-5.0) mg/dL Magnesium 2.2 2.0 (1.7-2.3) mg/dL Total Bilirubin (0.2-1.0) mg/dL AST (10-42) IU/L ALT (10-60) IU/L Alkaline Phosphatase (42-121) IU/L B-Natriuretic Peptide Total Protein (6.4-8.9) g/dL Albumin (3.2-5.5) g/dL Globulin (2.1-4.2) g/dL Albumin/Globulin Ratio (1.0-2.2) Lipase (11-82) U/L Urine Color YELLOW Urine Clarity SL. CLOUDY (CLEAR) Urine pH 5.5 (5.0-7.5) PH Ur Specific [place] 1.020 (1.002-1.030) Urine Protein 100 H (NEGATIVE) mg/dL Urine Glucose (UA) NEGATIVE (NEGATIVE) mg/dL Urine Ketones NEGATIVE (NEGATIVE) mg/dL Urine Occult Blood LARGE H (NEGATIVE) Urine Nitrite NEGATIVE (NEGATIVE) Urine Bilirubin NEGATIVE (NEGATIVE) Urine Urobilinogen 0.2 (NORMAL) (NORMAL) E.U./dL Ur Leukocyte Esterase NEGATIVE (NEGATIVE) Urine RBC 0-5 (0-5) /HPF Urine WBC 4-5 (0-5) /HPF Ur Squamous Epith Cells NONE SEEN (<= Few) Urine Bacteria Few (None Seen) /HPF Urine Yeast PRESENT Urine Culture Comments NOT INDICATED 05/18/24 05/18/24 Range/Units 09:29 09:25 WBC 9.3 (4.8-10.8) x10^3/uL RBC 2.59 L (4.20-5.40) 10^6/uL Hgb 8.5 L (12.0-16.0) g/dL Hct 27.8 L (37.0-47.0) % MCV 107.3 H (81.0-99.0) fL MCH 32.8 H (27.0-31.0) pg MCHC 30.6 L (32.0-36.0) g/dL RDW 17.0 H (12.0-15.0) % Plt Count 297 (130-450) 10^3/uL MPV 8.4 (7.9-10.8) fL Neut # (Auto) 6.9 H (1.5-6.6) 10^3/uL Lymph # (Auto) 1.6 (1.5-3.5) 10^3/uL [place] # (Auto) 0.6 (0.0-1.0) 10^3/uL Eos # (Auto) 0.2 (0.0-0.7) 10^3/uL Baso # (Auto) 0.0 (0.0-0.1) 10^3/uL Absolute Nucleated RBC 0.08 x10^3/uL Nucleated RBC % 0.9 /100WBC Sodium 138 (135-145) mmol/L Potassium 4.3 (3.5-4.5) mmol/L Chloride 107 (101-111) mmol/L Carbon Dioxide 19 L (21-32) mmol/L Anion Gap 12.0 (6-13) BUN 59 H (6-20) mg/dL Creatinine 3.0 H (0.6-1.3) mg/dL Estimated GFR (MDRD) 15 L (>89) Glucose 127 H (74-104) mg/dL Calcium 8.6 (8.5-10.3) mg/dL Phosphorus 4.9 (2.5-5.0) mg/dL Magnesium 2.0 (1.7-2.3) mg/dL Total Bilirubin 0.5 (0.2-1.0) mg/dL AST 66 H (10-42) IU/L ALT 62 H (10-60) IU/L Alkaline Phosphatase 78 (42-121) IU/L B-Natriuretic Peptide 3821 H Cancelled Total Protein 6.0 L (6.4-8.9) g/dL Albumin 3.7 (3.2-5.5) g/dL Globulin 2.3 (2.1-4.2) g/dL Albumin/Globulin Ratio 1.6 (1.0-2.2) Lipase 169 H (11-82) U/L Urine Color Urine Clarity (CLEAR) Urine pH (5.0-7.5) PH Ur Specific [place] (1.002-1.030) Urine Protein (NEGATIVE) mg/dL Urine Glucose (UA) (NEGATIVE) mg/dL Urine Ketones (NEGATIVE) mg/dL Urine Occult Blood (NEGATIVE) Urine Nitrite (NEGATIVE) Urine Bilirubin (NEGATIVE) Urine Urobilinogen (NORMAL) E.U./dL Ur Leukocyte Esterase (NEGATIVE) Urine RBC (0-5) /HPF Urine WBC (0-5) /HPF Ur Squamous Epith Cells (<= Few) Urine Bacteria (None Seen) /HPF Urine Yeast Urine Culture Comments Diagnostic Imaging Diagnostic Imaging Results: positive Final report reviewed Assessment/Plan Problem List (1) Acute exacerbation of CHF (congestive heart failure): Impression: Patient presented with shortness of breath, lower extremity edema. She stopped her Lasix recently on April 29 per her water tender recommendations due to elevation of her creatinine. Records have been requested. Echo has been ordered. Continue IV Lasix 40 mg twice daily. She put out about 3 L of urine over the last 24 hours. She states that she is about 20 pounds over her baseline dry weight. General Surgery spoken with, will evaluate the patient, and give further recommendations including possible EGD, repeat colonoscopy with possible banding. Creatinine has been stable. She already has follow-up with nephrology scheduled for outpatient. Qualifiers: Heart failure type: unspecified Qualified Code(s): I50.9 - Heart failure, unspecified (2) Acute GI bleeding: Impression: Patient has had dark stools, with occasional clumps of blood, as well as streaks of blood for a few months. Her hemoglobin in 02/09 was 9.7, and is slowly been downtrendingtoday it is 7.7. Of note, she is on Eliquis. This has been held. Will start IV Protonix twice daily. She will likely need to be on GI prophylaxis as long as she is on the Eliquis. She did have a colonoscopy done 10/28/2023olonoscopy was technically difficult due to tortuous colon, but was successful with pediatric colonoscope. There were patchy areas of inflammation with adherent blood, erythema and friability in the cecum, and biopsies were taken. Hemorrhoid banding also recurred. Biopsies were sentthese were reviewed, and indicated a hyperplastic polyp, as well as a tubular adenoma negative for high-grade dysplasia. (3) YARON (acute kidney injury): Impression: Continue furosemide 40 mg IVP BID. Monitor kidney function via daily BMPs. (4) A-fib: Impression: Continue home metoprolol. Eliquis currently held due to above. Qualifiers: Atrial fibrillation type: unspecified chronic Qualified Code(s): I48.20 - Chronic atrial fibrillation, unspecified
[2024-05-19] MEDS: PANTOPRAZOLE 40 MG VIAL IVP SCH (11:00)
[2024-05-19 11:56] LABS: HCT - HEMATOCRIT 24.8 % (37.0-47.0); HGB - HEMOGLOBIN 7.7 g/dL (12.0-16.0)
[2024-05-19 16:57] LABS: FECAL OCCULT BLOOD (FIT) POSITIVE (NEGATIVE)
--- NOTE | 2024-05-19 17:08 | PROVIDER PROGRESS NOTE ---
Progress Note Progress Note Progress Note: General Surgery Progress Note Notified of this patient and discussed with Medical Hospitalist. Full consult to follow tomorrow. Joe Toledo MD, FACS General Surgery Service
--- NOTE | 2024-05-20 06:16 | CONSULTATION NOTE ---
Referring Provider Name of Referring Provider:: Dr. Grey History of Present Illness History of Present Illness HPI Comment/Other: I am asked to consult on Lupe Crowley for rectal bleeding thought due to recurrent hemorrhoids. The patient presented to the hospital with worsening fatigue and dyspnea, a chronic condition related to her heart failure and kidney disease. She was found to be volume overloaded and diuresis was started after admission on 05/18/2024. The next day she passed a dark bowel motion with streaks of blood and her Hgb decreased from 8.5 -> 7.7. The patient was noted to have similar rectal bleeding in October 2023 and underwent colonoscopy examination by Dr. Bravo. The finding at the time of that procedure was inflammation of the cecum, distal descending colon, and sigmoid with evidence for recent bleeding (see photos from that procedure). Biopsy of the cecal and sigmoid inflammation were obtained. Of note, there was no evidence of perianal disease such as hemorrhoids nor is there documentation that the patient underwent a hemorrhoidectomy or hemorrhoid banding procedure. Her path report for that procedure is confusing as it indicates that the two biospy specimens were labeled as "polyps" and that one was a TA and the other a HPP. This is clearly discordant with the official [facility] endoscopy report. The patient takes a daily DOAC for atrial fibrillation. The patient denies recent epistaxis, hematemesis, hemoptysis, the use of NSAID's or gastric irritants. She admits to having prior PUD thought due to ASA and documented on EGD in the early . She was placed on Nexium but self- terminated the prescription because she was worried about side effects. Lupe admits to having constant lower GI blood loss since the October CS examination. [facility] Active Problems All Active Problems (Updated 05/19/24 @ 12:32 by Rell Grey MD) Acute GI bleeding (Acute) Acute exacerbation of CHF (congestive heart failure) (Acute) YARON (acute kidney injury) (Acute) Shortness of breath (Acute) Acute cough (Acute) Hypertension (Acute) Cellulitis of right lower leg (Acute) Laceration of left hand (Acute) Encounter for removal of nasal pack (Acute) Epistaxis (Acute) Cellulitis (Acute) NSTEMI (non-ST elevated myocardial infarction) (Acute) Acute CHF (Acute) Medical History Medical History (Updated 05/19/24 @ 12:32 by Rell Grey MD) A-fib Social History Social History (Updated 05/18/24 @ 10:42 by Giovani Tucker RN) Smoking Status: Former smoker If you are a former smoker, when did you quit? (Date/Year): 1973 How many cigarettes a day do you smoke? (20 cigarettes=1 Pk): 1 Second hand tobacco smoke exposure: No Do you dip or chew tobacco?: No Do you vape?: No Patient requests smoking cessation consult: No Initiate information on smoking cessation: No Relationship: Level: Assisted Home Mobility Equipment: Wheeled walker Do you feel safe in your home environment?: Yes Suffered physical, verbal, emotional, or financial abuse?: No History of Abuse: No ETOH Use: None Frequency: Occasional Substance Use: denies use POLST Patient has POLST: No Meds/Allgy Home Medications Ambulatory Orders Medication Instructions Recorded Confirmed multivitamin 1 cap PO DAILY 10/23/17 05/18/24 acetaminophen 500 mg tablet 1,000 mg PO Q6H PRN fever or pain 10/22/23 05/18/24 carboxymethylcellulose sodium 1 % 1 ea OPTH PRN PRN As Needed Per 10/22/23 05/18/24 eye gel in a dropperette (Refresh Provider Orders Celluvisc) cholecalciferol (vitamin D3) 25 1,000 unit PO DAILY 10/22/23 05/18/24 mcg (1,000 unit) capsule omega 2-vxs-pxy-fish oil 300 1 ea PO DAILY 10/22/23 05/18/24 mg-1,000 mg capsule (Fish Oil) psyllium husk 0.52 gram capsule 2 cap PO DAILY As Needed Per 10/22/23 05/18/24 (Metamucil) Provider Orders metoprolol succinate 100 mg 100 mg PO Q12H 05/18/24 05/18/24 tablet,extended release 24 hr rivaroxaban 15 mg tablet (Xarelto) 15 mg PO QPM 05/18/24 05/18/24 Allergies Allergies Allergy/AdvReac Type Severity Reaction Status Date / Time aspirin Allergy Severe Unknown Verified 05/18/24 08:57 erythromycin base Allergy Severe Unknown Verified 05/18/24 08:57 eucalyptus Allergy Severe Unknown Verified 05/18/24 08:57 NSAIDS (Non-Steroidal Allergy Severe Unknown Verified 05/18/24 08:57 Anti-Inflamma Oamwkhr-AJJ-RmK Reductase Allergy Severe Unknown Verified 05/18/24 08:57 Inhibitor (Hwclstw-Oao-Fro Reductase Inhibitor) Results Lab Results 05/20/24 05:30 05/20/24 05:30 Other Lab Results: Lab Results x24hrs 05/19/24 05/19/24 Range/Units 15:55 11:47 Hgb 7.7 L (12.0-16.0) g/dL Hct 24.8 L (37.0-47.0) % Stl Occult Blood (IFOB) POSITIVE A (NEGATIVE) Conclusion and Plan Diagnosis Diagnosis: 1) 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 The pathology report is discordant with the endoscopic procedure and the lab should be queried because we do not know the etiology of the colitis or if it can be managed with medication 2) If there is a need to evaluate the UGI tract, EGD can be performed but I would recommend that it be done tomorrow so that her DOAC is no longer in her system and her CHF is optimized. An alternative to EGD would be to simply offer oral PPI or H-2 kiarra to empirically manage presumed gastric irritation. Review of Systems SOB which has improved since admission, No abdominal pain, no chest pain, No nausea, vomiting or recent epistaxis Exam Exam Vital Signs: Vital Signs x48h Temp Pulse Resp BP Pulse Ox 05/20/24 05:39 36.4 C L 68 16 158/86 H 96 05/19/24 23:48 36.4 C L 68 16 149/86 H 97 Constitutional normal general appearance and no apparent distress [facility] normocephalic Eyes PERRL Neck/C-Spine visual inspection normal Respiratory breath sounds equal bilaterally and normal respiratory effort Cardiovascular normal heart rate noted Gastrointestinal abdomen normal to inspection and abdomen soft to palpation Psychiatry mental status grossly normal
[2024-05-20 06:30] LABS: HCT - HEMATOCRIT 28.7 % (37.0-47.0); HGB - HEMOGLOBIN 8.6 g/dL (12.0-16.0); MEAN CORPUSCULAR HEMOGLOBIN 32.2 pg (27.0-31.0); MEAN CORPUSCULAR VOLUME 107.5 fL (81.0-99.0); MEAN PLATELET VOLUME 8.8 fL (7.9-10.8); RED BLOOD COUNT 2.67 10^6/uL (4.20-5.40); RED CELL DISTRIBUTION WIDTH 17.3 % (12.0-15.0)
[2024-05-20 06:51] LABS: CALCIUM 8.6 mg/dL (8.5-10.3); CREATININE 2.8 mg/dL (0.6-1.3); POTASSIUM 3.5 mmol/L (3.5-4.5)
--- NOTE | 2024-05-20 08:31 | PROVIDER PROGRESS NOTE ---
Subjective Subjective Subjective: Patient states that she was urinating all night. She feels like her legs are much less swollen. She has an appointment already to see a master chef, in the next few months. She did have a large black bowel movement with some streaks of blood in it. She states that this has been going on for a few months. She does state it has become more regular. Of note, she did have a colonoscopy done 10/28/2023olonoscopy was technically difficult due to tortuous colon, but was successful with pediatric colonoscope. There were patchy areas of inflammation with adherent blood, erythema and friability in the cecum, and biopsies were taken. Biopsies were sentthese were reviewed, and indicated a hyperplastic polyp, as well as a tubular adenoma negative for high-grade dysplasia. She had a discussion with general surgery this morning in regards to EGD. She would prefer to hold off, continue Protonix. Current Medications Current Medications Current Medications: Current Medications Generic Name Dose Route Start Last Admin Trade Name Freq PRN Reason Stop Dose Admin Acetaminophen 1,000 mg 05/18/24 13:32 05/20/24 06:11 Acetaminophen 500 Mg Tablet PO 1,000 mg Q6H PRN Administration fever or pain Carboxymethylcellulose 2 drops 05/19/24 08:23 Carboxymethylcellulose Ophth Drops EACHEYE QID PRN Dry Eye Cholecalciferol 25 mcg 05/19/24 09:00 05/20/24 07:59 Cholecalciferol 25 Mcg Tablet PO 25 mcg DAILY ABEL Administration Furosemide 40 mg 05/18/24 13:00 05/20/24 07:59 Furosemide 40 Mg/4 Ml Vial IVP 40 mg BID ABEL Administration Metoprolol Succinate 200 mg 05/19/24 09:00 05/20/24 07:59 Metoprolol Succinate 50 Mg Tablet PO 200 mg DAILY ABEL Administration Multivitamins 1 tab 05/19/24 08:00 05/20/24 07:59 Multivitamin Tablet PO 1 tab DAILYWM ABEL Administration Hvgsg-1-Zvut Ethyl Esters 1 gm 05/19/24 09:00 05/20/24 07:59 [place]-3 Acid Ethyl Esters 1 Gm Capsule PO 1 gm DAILY ABEL Administration Pantoprazole Sodium 40 mg 05/19/24 10:00 05/20/24 07:59 Pantoprazole 40 Mg Vial IVP 40 mg BID ABEL Administration Psyllium Hydrophilic Mucilloid 1 packet 05/19/24 09:00 05/20/24 08:00 Psyllium Packet PO Not Given DAILY ABEL Sodium Chloride 10 ml 05/18/24 13:32 Sodium Chloride Flush 0.9% 10 Ml Syringe IVP PRN PRN NEEDED PER PROVIDER ORDERS Sodium Chloride 10 ml 05/18/24 17:00 05/20/24 07:59 Sodium Chloride Flush 0.9% 10 Ml Syringe IVP 10 ml 0100,0900,1700 [facility] Administration Objective Vital Signs/Intake & Output Reviewed Vital Signs: Yes Vital Signs: Vital Signs x48h Temp Pulse Resp BP Pulse Ox 05/20/24 08:05 97.5 F L 71 14 151/85 H 97 05/20/24 05:39 97.5 F L 68 16 158/86 H 96 Intake & Output: Intake & Output 05/17/24 05/18/24 05/19/24 05/20/24 23:59 23:59 23:59 23:59 Intake Total 290 / 290 998 / 998 240 / 240 Output Total 1250 / 1250 3475 / 3475 1600 / 1600 Balance -960 / -960 -2477 / -2477 -1360 / -1360 Weight (kg) 73.5 kg 73.5 kg Objective General Appearance: positive No acute distress and Alert; negative Anxious Eyes Bilateral: positive Normal inspection and PERRL ENT: positive ENT inspection nml, Pharynx nml and No signs of dehydration Neck: positive Nml inspection, Thyroid nml and No JVD Respiratory: positive Chest non-tender, No respiratory distress and Breath sounds nml; negative Wheezes, Rales or Rhonchi Cardiovascular: positive No murmur, No gallop and Irregularly irregular; negative Tachycardia Abdomen: positive Non-tender, No organomegaly, Nml bowel sounds and No distention Rectal: positive Non-tender, Black stool and Bloody stool Back: positive Nml inspection; negative CVA tenderness (R) or CVA tenderness (L) Skin: positive Color nml, No rash, Warm and Dry Extremities: positive Non-tender, Full ROM, Nml appearance and Pedal edema (2+ edema bilaterally up to knees; improving ) Neurologic/Psychiatric: positive Oriented x3, Motor nml and Mood/affect nml Lab Results 05/20/24 05:30 05/20/24 05:30 Other Labs: Lab Results x24hrs 05/20/24 05/19/24 05/19/24 Range/Units 05:30 15:55 11:47 WBC 9.0 (4.8-10.8) x10^3/uL RBC 2.67 L (4.20-5.40) 10^6/uL Hgb 8.6 L 7.7 L (12.0-16.0) g/dL Hct 28.7 L 24.8 L (37.0-47.0) % MCV 107.5 H (81.0-99.0) fL MCH 32.2 H (27.0-31.0) pg MCHC 30.0 L (32.0-36.0) g/dL RDW 17.3 H (12.0-15.0) % Plt Count 314 (130-450) 10^3/uL MPV 8.8 (7.9-10.8) fL Sodium 140 (135-145) mmol/L Potassium 3.5 (3.5-4.5) mmol/L Chloride 106 (101-111) mmol/L Carbon Dioxide 24 (21-32) mmol/L Anion Gap 10.0 (6-13) BUN 61 H (6-20) mg/dL Creatinine 2.8 H (0.6-1.3) mg/dL Estimated GFR (MDRD) 16 L (>89) Glucose 84 (74-104) mg/dL Calcium 8.6 (8.5-10.3) mg/dL Magnesium 2.0 (1.7-2.3) mg/dL Stl Occult Blood (IFOB) POSITIVE A (NEGATIVE) Diagnostic Imaging Diagnostic Imaging Results: positive Final report reviewed Assessment/Plan Problem List (1) Acute exacerbation of CHF (congestive heart failure): Impression: Patient presented with shortness of breath, lower extremity edema. She stopped her Lasix recently on April 29 per her ophthalmic pathologist recommendations due to elevation of her creatinine. Records have been requested. ECHO has been ordered. Report is pending. Continue IV Lasix 40 mg twice daily. She put out about 3 L of urine over the last 24 hours. She states that she is about 20 pounds over her baseline dry weight. General Surgery spoken with, plan to hold off on EGD at this time. Continue Protonix. Continue to hold Eliquis until AM. Creatinine has been stable. She already has follow-up with nephrology scheduled for outpatient. Qualifiers: Heart failure type: unspecified Qualified Code(s): I50.9 - Heart failure, unspecified (2) Acute GI bleeding: Impression: Patient has had dark stools, with occasional clumps of blood, as well as streaks of blood for a few months. Her hemoglobin in 02/09 was 9.7, and is slowly been downtrending. Of note, she is on Eliquis. This has been held. Will start IV Protonix twice daily. She will likely need to be on GI prophylaxis as long as she is on the Eliquis. She did have a colonoscopy done 10/28/2023olonoscopy was technically difficult due to tortuous colon, but was successful with pediatric colonoscope. There were patchy areas of inflammation with adherent blood, erythema and friability in the cecum, and biopsies were taken. Biopsies were sentthese were reviewed, and indicated a hyperplastic polyp, as well as a tubular adenoma negative for high-grade dysplasia. (3) YARON (acute kidney injury): Impression: Continue furosemide 40 mg IVP BID. Monitor kidney function via daily BMPs. (4) A-fib: Impression: Continue home metoprolol. Eliquis currently held due to above. Qualifiers: Atrial fibrillation type: unspecified chronic Qualified Code(s): I48.20 - Chronic atrial fibrillation, unspecified
--- NOTE | 2024-05-20 16:44 | ECHO Report ---
Version: 1 Study ID: [id number] [address] [place] [address] Adult Echocardiogram Report Name: GIN COLEMAN Study Date: 05/20/2024, 10: 46 AM BP : 151 / 85 mmHg Patient Location: [facility]^[id number] HR: 60 bpm : 1935 (MM/DD/YYYY) Gender: Female He ight: 61 in Age: 88 Years Weight: 162.04 lb Reason For Study: SHAJI History: Acute CHF exacerbation, atrial fibrillation Procedure: A complete two-dimensional transthoracic echocardiogram was performed (2D, M-mode, Doppler and color flow Doppler). Indication: Evaluate cardiac and valve function. Patient scanned in reclinning chair. The underlying rhythm was atrial flutter. The underlying rhythm was atrial fibrillation. Interpretation Summary The left ventricular cavity is small. Mid and apical hypertrophy is present. Covity obliteration distal 2/3 of LV. Hyperdynamic left ventricular systolic function is present. The right ventricle is normal in size and function. Mild tricuspid regurgitation present. There is mild to moderate mitral regurgitation. There is mild to moderate valvular aortic stenosis. Left Ventricle: The left ventricular cavity is small. Mid and apical hypertrophy is present. Covity obliteration dist al 2/3 of LV. Global left ventricular systolic function is normal. Hyperdynamic left ventricular systolic function is present. Diastolic function could not be accurately assessed due to irregular rhythm. Right Ventricle: The right ventricle is normal size. The right ventricle is normal in size and function. The right tanisha tricular systolic function is normal. Aortic Valve: The aortic valve is trileaflet. The aortic valve is moderately calcified. Aortic stenosis difficult t o assess. Velocity obtained may be underestimated due to cavity obliteration. The aortic valve mean pressure gradient is 21 mmHg. The aortic valve maximum pressure gradient is 38 mmHg. The aortic valve peak velocity is 310 cm/sec. The peak aortic valve velocity was obtained from the apical window. There is mild to moderate valvular aortic stenosis. Tra ce aortic regurgitation is present. Mitral Valve: The mitral valve leaflets are mildly thickened. No evidence of mitral stenosis is seen. There is mild to moderate mitral regurgitation. Tricuspid Valve: The tricuspid valve is normal in structure and function. Mild tricuspid regurgitation present. Pulmonic Valve: The pulmonic valve is normal in structure and function. Trace pulmonic valvular regurgitation is pres ent. Left Atrium: The left atrial volume indexed to body surface area is 112 ml/m2. This refers to the maximal volume m easured prior to mitral valve opening. Left atrial volume index is severely increased. Right Atrium: The right atrium is moderately dilated. The inferior vena cava is normal in diameter (<2.1cm) but col lapse <50% with sniff (estimated right atrial pressure 5-10mmHg). Atrial Septum: The interatrial septum is shifted rightward, consistent with elevated left atrial pressure. Aorta: The diameter of the ascending aorta is 3.8 cm. The aorta at the sinus of Valsalva measures 3.2cm. Pulmonary Artery: The pulmonary artery systolic pressure, calculated from a peak tricuspid regurgitant velocity in conj unction with an estimated right atrial pressure, is 41.5mmHg. Pericardium/Pleural Space: There is no pericardial effusion. CPT Codes: 70782/[id number]: Transthoracic Echo with Spectral and Color Doppler. Doppler Measurements & Calculations Ao max P.8 mmHg Ao mean P.9 mmHg Ao V2 max: 307.5 cm/sec Ao V2 mean: 215.9 cm/sec Ao V2 VTI: 57.1 cm LV V1 max: 85.6 cm/sec LV V1 max P.9 mmHg LV V1 mean: 63.0 cm/sec LV V1 mean P.76 mmHg LV V1 VTI: 17.3 cm PA max P.39 mmHg PA V2 max: 58.9 cm/sec RAP systole: 10.0 mmHg TR max P.5 mmHg TR max vicenta: 280.5 cm/sec MMode/2D Measurements & Calculations Ao root diam: 3.2 cm EF (est.): 47.2 % Heart Rate: 60.0 BPM Height (metric): 154.9 cm IVSd: 1.18 cm LAV(MOD-bp): 194.0 ml LAV(MOD-bp) Indexed: 112.3 ml/m² LAV(MOD-sp2): 261.6 ml LAV(MOD-sp4): 143.9 ml LVIDd: 4.3 cm LVIDs: 2.9 cm LVPWd: 1.17 cm Systolic Pressure: 151.0 mmHg Other Measurements & Calculations Ao mean P.9 mmHg Ao root diam: 3.2 cm Ao V2 max: 307.5 cm/sec Ao V2 mean: 215.9 cm/sec Ao V2 VTI: 57.1 cm BMI: 30.6 kilograms/m² BSA: 1.73 m² BSA([facility]): 1.81 m² Diastolic Pressure: 85.0 mmHg EDV(Teich): 83.4 ml EF (est.): 47.2 % EF(Teich): 61.6 % ESV(Teich): 32.0 ml FS: 32.8 % Heart Rate: 60.0 BPM Height (metric): 154.9 cm IVSd: 1.18 cm LAV(MOD-bp): 194.0 ml LAV(MOD-bp) Indexed: 112.3 ml/m² LAV(MOD-sp2): 261.6 ml LAV(MOD-sp4): 143.9 ml LV V1 max: 85.6 cm/sec LV V1 mean: 63.0 cm/sec LV V1 mean P.76 mmHg LVIDd: 4.3 cm LVIDs: 2.9 cm LVPWd: 1.17 cm PA max P.39 mmHg PA V2 max: 58.9 cm/sec RAP systole: 10.0 mmHg RVSP(TR): 41.5 mmHg Systolic Pressure: 151.0 mmHg TR max P.5 mmHg TR max vicenta: 280.5 cm/sec TV max P.5 mmHg Weight (metric): 73.5 kg Dario Goins MD 05/20/2024, 4: 43 PM Ordering Physician: Rell Grey Referring Physician: Irais Perez Performed By: Brittney Wiley RDCS
[2024-05-21 06:05] LABS: HCT - HEMATOCRIT 26.2 % (37.0-47.0); MEAN CORPUSCULAR HEMOGLOBIN 32.5 pg (27.0-31.0); MEAN CORPUSCULAR HGB CONC 30.5 g/dL (32.0-36.0); MEAN CORPUSCULAR VOLUME 106.5 fL (81.0-99.0); MEAN PLATELET VOLUME 8.9 fL (7.9-10.8); RED BLOOD COUNT 2.46 10^6/uL (4.20-5.40); RED CELL DISTRIBUTION WIDTH 17.1 % (12.0-15.0); WHITE BLOOD COUNT 8.1 x10^3/uL (4.8-10.8)
[2024-05-21 06:22] LABS: CALCIUM 8.3 mg/dL (8.5-10.3); CREATININE 2.9 mg/dL (0.6-1.3); MAGNESIUM 1.8 mg/dL (1.7-2.3); POTASSIUM 3.4 mmol/L (3.5-4.5)
[2024-05-21] MEDS: POTASSIUM CHLORIDE 20 MEQ TABLET PO ONE (08:35)
--- NOTE | 2024-05-21 09:56 | PROVIDER PROGRESS NOTE ---
Subjective Subjective Subjective: Patient states that she was urinating all night. She feels like her legs are much less swollen. She has an appointment already to see a bag adjuster, in the next few months. I had an extensive conversation with her hydraulics engineer, Dr. Cantrell. He thinks that she may be a good candidate for a Watchman procedure in the future. He is okay with holding anticoagulation at this time until she no longer has a GI bleed. However, she is a high risk for stroke with her atrial fibrillation burden. He would like her hemoglobin to be greater than 8, and I have ordered a unit of blood. I also spoke with Dr. Schaefer, general surgeon. He we will do a flexible sigmoidoscopy tomorrow morning, get a biopsy of her colon, and see if there is an active source of bleeding. Plan to do 2 enemas in the morning, n.p.o. after midnight. Current Medications Current Medications Current Medications: Current Medications Generic Name Dose Route Start Last Admin Trade Name Freq PRN Reason Stop Dose Admin Acetaminophen 1,000 mg 05/18/24 13:32 05/20/24 22:52 Acetaminophen 500 Mg Tablet PO 1,000 mg Q6H PRN Administration fever or pain Carboxymethylcellulose 2 drops 05/19/24 08:23 Carboxymethylcellulose Ophth Drops EACHEYE QID PRN Dry Eye Cholecalciferol 25 mcg 05/19/24 09:00 05/21/24 08:36 Cholecalciferol 25 Mcg Tablet PO 25 mcg DAILY ABEL Administration Furosemide 40 mg 05/18/24 13:00 05/21/24 08:35 Furosemide 40 Mg/4 Ml Vial IVP 40 mg BID ABEL Administration Metoprolol Succinate 200 mg 05/19/24 09:00 05/21/24 08:35 Metoprolol Succinate 50 Mg Tablet PO 200 mg DAILY ABEL Administration Multivitamins 1 tab 05/19/24 08:00 05/21/24 08:36 Multivitamin Tablet PO 1 tab DAILYWM ABEL Administration Czeah-6-Mibz Ethyl Esters 1 gm 05/19/24 09:00 05/21/24 08:36 [place]-3 Acid Ethyl Esters 1 Gm Capsule PO 1 gm DAILY ABEL Administration Pantoprazole Sodium 40 mg 05/19/24 10:00 05/21/24 08:35 Pantoprazole 40 Mg Vial IVP 40 mg BID ABEL Administration Psyllium Hydrophilic Mucilloid 1 packet 05/19/24 09:00 05/21/24 08:34 Psyllium Packet PO 1 packet DAILY ABEL Administration Sodium Chloride 10 ml 05/18/24 13:32 Sodium Chloride Flush 0.9% 10 Ml Syringe IVP PRN PRN NEEDED PER PROVIDER ORDERS Sodium Chloride 10 ml 05/18/24 17:00 05/21/24 08:36 Sodium Chloride Flush 0.9% 10 Ml Syringe IVP 10 ml 0100,0900,1700 ABEL Administration Objective Vital Signs/Intake & Output Reviewed Vital Signs: Yes Vital Signs: Vital Signs x48h Temp Pulse Resp BP Pulse Ox 05/21/24 09:00 97.7 F 78 16 117/69 98 05/21/24 04:10 97.9 F 79 20 153/87 H 93 Intake & Output: Intake & Output 05/18/24 05/19/24 05/20/24 05/21/24 23:59 23:59 23:59 23:59 Intake Total 290 / 290 998 / 998 350 / 350 240 / 240 Output Total 1250 / 1250 3475 / 3475 3800 / 3800 1800 / 1800 Balance -960 / -960 -2477 / -2477 -3450 / -3450 -1560 / -1560 Weight (kg) 73.5 kg 73.5 kg 73.5 kg Objective General Appearance: positive No acute distress and Alert; negative Anxious Eyes Bilateral: positive Normal inspection and PERRL ENT: positive ENT inspection nml, Pharynx nml and No signs of dehydration Neck: positive Nml inspection, Thyroid nml and No JVD Respiratory: positive Chest non-tender, No respiratory distress and Breath sounds nml; negative Wheezes, Rales or Rhonchi Cardiovascular: positive No murmur, No gallop and Irregularly irregular; negative Tachycardia Abdomen: positive Non-tender, No organomegaly, Nml bowel sounds and No distention Rectal: positive Non-tender, Black stool and Bloody stool Back: positive Nml inspection; negative CVA tenderness (R) or CVA tenderness (L) Skin: positive Color nml, No rash, Warm and Dry Extremities: positive Non-tender, Full ROM, Nml appearance and Pedal edema (2+ edema bilaterally up to knees; improving ) Neurologic/Psychiatric: positive Oriented x3, Motor nml and Mood/affect nml Lab Results 05/21/24 05:03 05/21/24 05:03 Other Labs: Lab Results x24hrs 05/21/24 Range/Units 05:03 WBC 8.1 (4.8-10.8) x10^3/uL RBC 2.46 L (4.20-5.40) 10^6/uL Hgb 8.0 L (12.0-16.0) g/dL Hct 26.2 L (37.0-47.0) % MCV 106.5 H (81.0-99.0) fL MCH 32.5 H (27.0-31.0) pg MCHC 30.5 L (32.0-36.0) g/dL RDW 17.1 H (12.0-15.0) % Plt Count 296 (130-450) 10^3/uL MPV 8.9 (7.9-10.8) fL Sodium 141 (135-145) mmol/L Potassium 3.4 L (3.5-4.5) mmol/L Chloride 105 (101-111) mmol/L Carbon Dioxide 26 (21-32) mmol/L Anion Gap 10.0 (6-13) BUN 65 H (6-20) mg/dL Creatinine 2.9 H (0.6-1.3) mg/dL Estimated GFR (MDRD) 15 L (>89) Glucose 84 (74-104) mg/dL Calcium 8.3 L (8.5-10.3) mg/dL Magnesium 1.8 (1.7-2.3) mg/dL Diagnostic Imaging Diagnostic Imaging Results: positive Final report reviewed Assessment/Plan Problem List (1) Acute exacerbation of CHF (congestive heart failure): Impression: Patient presented with shortness of breath, lower extremity edema. She stopped her Lasix recently on April 29 per her hydraulics engineer recommendations due to elevation of her creatinine. Records have been requested. ECHO has been ordered. Continue IV Lasix 40 mg twice daily. She put out about 10 L of urine over her stay. She states that she is about 20 pounds over her baseline dry weight, but her weight has stayed stable. Creatinine has been stable. She already has follow-up with nephrology scheduled for outpatient. I had an extensive conversation with her hydraulics engineer, Dr. Cantrell. He thinks that she may be a good candidate for a Watchman procedure in the future. He is okay with holding anticoagulation at this time until she no longer has a GI bleed. However, she is a high risk for stroke with her atrial fibrillation burden. He would like her hemoglobin to be greater than 8, and I have ordered a unit of blood. Qualifiers: Heart failure type: unspecified Qualified Code(s): I50.9 - Heart failure, unspecified (2) Acute GI bleeding: Impression: Patient has had dark stools, with occasional clumps of blood, as well as streaks of blood for a few months. Her hemoglobin in 02/09 was 9.7, and is slowly been downtrending to 8 this morning. Of note, she is on Eliquis. This has been held. Will start IV Protonix twice daily. She will likely need to be on GI prophylaxis as long as she is on the Eliquis. She did have a colonoscopy done 10/28/2023olonoscopy was technically difficult due to tortuous colon, but was successful with pediatric colonoscope. There were patchy areas of inflammation with adherent blood, erythema and friability in the cecum, and biopsies were taken. I also spoke with Dr. Schaefer, general surgeon. He we will do a flexible sigmoidoscopy tomorrow morning, get a biopsy of her colon, and see if there is an active source of bleeding. Plan to do 2 enemas in the morning, n.p.o. after midnight. (3) YARON (acute kidney injury): Impression: Stable. Continue furosemide 40 mg IVP BID. Monitor kidney function via daily BMPs. (4) A-fib: Impression: Continue home metoprolol. Eliquis currently held due to above. Qualifiers: Atrial fibrillation type: unspecified chronic Qualified Code(s): I48.20 - Chronic atrial fibrillation, unspecified
--- NOTE | 2024-05-21 13:56 | PROVIDER PROGRESS NOTE ---
Progress Note Progress Note Progress Note: General Surgery Progress Note Lupe continues to have rectal bleeding such that she will receive a unit of blood today. She is hemodynamically stable and without abdominal discomfort. I am asked to consider limited endoscopy to determine the etiology of her rectal bleeding. She has a history of similar lower GI bleeding in Oct 2023 and inflammation of the cecum, recto-sigmoid and distal descending colon were identified on colonoscopy examination. Accurate biopsy information is not available. Of note is that the endoscopy procedure was difficult due to colon angulation and tortuosity and required a pediatric endoscope for completion. Assessment: Persistent lower GI tract bleeding presumably due to colitis. She is recovering well from an episode of significant CHF. She is off her DOAC at the current time. Plan: The patient will be transfused blood today. She will be made NPO after midnight and receive two fleets enemas tomorrow morning in preparation for flexible sigmoidoscopy at 0900. If we can establish a definitive diagnosis of colitis as the cause of her blood loss and obtain biopsies of the inflammation with the abbreviated exam, we should be able to avoid a full bowel prep which seems like a reasonable precaution considering her recent CHF episode. If there is no evidence of colitis, I explained to Lupe that her lower GI blood loss could be originating from the stomach, small bowel, or proximal colon and would recommend EGD and colonoscopy on Friday after a careful bowel prep Friday. Consent: FS Lupe has been counseled for the procedure (flexible sigmoidoscopy), it's i ndications, risks, benefits and expected outcome as well as alternative therapies. We specifically discussed risks associated with anesthesia and insertion of the endoscope into the large intestine which includes bleeding and injury to the colon which may require surgical intervention. Lupe understands, agrees, and consents to the proposed operative strategy and requests that we proceed with the procedure as outlined in our discussion. Joe Toledo MD, [facility] General Surgery Service
[2024-05-22 06:08] LABS: HCT - HEMATOCRIT 31.4 % (37.0-47.0); HGB - HEMOGLOBIN 9.7 g/dL (12.0-16.0); MEAN CORPUSCULAR HEMOGLOBIN 32.3 pg (27.0-31.0); MEAN CORPUSCULAR HGB CONC 30.9 g/dL (32.0-36.0); MEAN CORPUSCULAR VOLUME 104.7 fL (81.0-99.0); MEAN PLATELET VOLUME 8.7 fL (7.9-10.8); RED CELL DISTRIBUTION WIDTH 17.4 % (12.0-15.0); WHITE BLOOD COUNT 9.2 x10^3/uL (4.8-10.8)
[2024-05-22 06:21] LABS: CALCIUM 8.6 mg/dL (8.5-10.3); CREATININE 2.8 mg/dL (0.6-1.3); MAGNESIUM 1.7 mg/dL (1.7-2.3); POTASSIUM 3.1 mmol/L (3.5-4.5)
[2024-05-22] MEDS ORDERED: SOAP SUDS ENEMA 1 EACH RC ONE (07:00)
--- NOTE | 2024-05-22 08:51 | ANESTHESIA PROCEDURE NOTE ---
Pre-Anesthesia VS, & Labs Diagnosis Surgical Diagnosis:: GI bleed Procedure Procedure: flex sigmoidoscopy Vitals Vital Signs: Temp Pulse Resp BP Pulse Ox 36.6 C 84 16 143/84 H 95 05/22/24 07:31 05/22/24 07:31 05/22/24 07:31 05/22/24 07:31 05/22/24 07:31 NPO NPO: >8 hours Is Patient ?: No Lab Results Current Lab Results: Laboratory Tests 05/22/24 05:30: WBC 9.2, RBC 3.00 L, Hgb 9.7 L, Hct 31.4 L, MCV 104.7 H, MCH 32.3 H, MCHC 30.9 L, RDW 17.4 H, Plt Count 308, MPV 8.7, Sodium 144, Potassium 3.1 L, Chloride 105, Carbon Dioxide 29, Anion Gap 10.0, BUN 64 H, Creatinine 2.8 H, Estimated GFR (MDRD) 16 L, Glucose 96, Calcium 8.6, Magnesium 1.7 05/21/24 11:58: Blood Type AB POSITIVE, Antibody Screen NEGATIVE, Crossmatch IS Only See Detail 05/21/24 05:03: WBC 8.1, RBC 2.46 L, Hgb 8.0 L, Hct 26.2 L, MCV 106.5 H, MCH 32.5 H, MCHC 30.5 L, RDW 17.1 H, Plt Count 296, MPV 8.9, Sodium 141, Potassium 3.4 L, Chloride 105, Carbon Dioxide 26, Anion Gap 10.0, BUN 65 H, Creatinine 2.9 H, Estimated GFR (MDRD) 15 L, Glucose 84, Calcium 8.3 L, Magnesium 1.8 05/21/24 05:00: Blood Type Recheck AB POSITIVE 05/20/24 05:30: WBC 9.0, RBC 2.67 L, Hgb 8.6 L, Hct 28.7 L, MCV 107.5 H, MCH 32.2 H, MCHC 30.0 L, RDW 17.3 H, Plt Count 314, MPV 8.8, Sodium 140, Potassium 3.5, Chloride 106, Carbon Dioxide 24, Anion Gap 10.0, BUN 61 H, Creatinine 2.8 H , Estimated GFR (MDRD) 16 L, Glucose 84, Calcium 8.6, Magnesium 2.0 05/19/24 11:47: Hgb 7.7 L, Hct 24.8 L 05/19/24 04:49: WBC 8.9, RBC 2.46 L, Hgb 8.1 L, Hct 26.2 L, MCV 106.5 H, MCH 32.9 H, MCHC 30.9 L, RDW 17.1 H, Plt Count 302, MPV 8.7, Sodium 139, Potassium 4.4, Chloride 108, Carbon Dioxide 21, Anion Gap 10.0, BUN 58 H, Creatinine 2.9 H , Estimated GFR (MDRD) 15 L, Glucose 93, Calcium 8.5, Magnesium 2.2 05/18/24 12:45: Magnesium 2.0 05/18/24 09:29: B-Natriuretic Peptide 3821 H 05/18/24 09:25: WBC 9.3, RBC 2.59 L, Hgb 8.5 L, Hct 27.8 L, MCV 107.3 H, MCH 32.8 H, MCHC 30.6 L, RDW 17.0 H, Plt Count 297, MPV 8.4, Neut # (Auto) 6.9 H, Lymph # (Auto) 1.6, [place] # (Auto) 0.6, Eos # (Auto) 0.2, Baso # (Auto) 0.0, Absolute Nucleated RBC 0.08, Nucleated RBC % 0.9, Sodium 138, Potassium 4.3, Chloride 107, Carbon Dioxide 19 L, Anion Gap 12.0, BUN 59 H, Creatinine 3.0 H, E stimated GFR (MDRD) 15 L, Glucose 127 H, Calcium 8.6, Phosphorus 4.9, Magnesium 2.0, Total Bilirubin 0.5, AST 66 H, ALT 62 H, Alkaline Phosphatase 78, B- Natriuretic Peptide Cancelled, Total Protein 6.0 L, Albumin 3.7, Globulin 2.3, Albumin/Globulin Ratio 1.6, Lipase 169 H 05/22/24 05:30 05/22/24 05:30 Meds/Allgy Home Medications Ambulatory Orders Medication Instructions Recorded Confirmed multivitamin 1 cap PO DAILY 10/23/17 05/18/24 acetaminophen 500 mg tablet 1,000 mg PO Q6H PRN fever or pain 09/04/24 04/01/25 carboxymethylcellulose sodium 1 % 1 ea OPTH PRN PRN As Needed Per 10/22/23 05/18/24 eye gel in a dropperette (Refresh Provider Orders Celluvisc) cholecalciferol (vitamin D3) 25 1,000 unit PO DAILY 10/22/23 05/18/24 mcg (1,000 unit) capsule omega 2-qwj-qph-fish oil 300 1 ea PO DAILY 10/22/23 05/18/24 mg-1,000 mg capsule (Fish Oil) psyllium husk 0.52 gram capsule 2 cap PO DAILY As Needed Per 10/22/23 05/18/24 (Metamucil) Provider Orders metoprolol succinate 100 mg 100 mg PO Q12H 05/18/24 05/18/24 tablet,extended release 24 hr rivaroxaban 15 mg tablet (Xarelto) 15 mg PO QPM 05/18/24 05/18/24 Allergies Allergies Allergy/AdvReac Type Severity Reaction Status Date / Time aspirin Allergy Severe Unknown Verified 05/18/24 08:57 erythromycin base Allergy Severe Unknown Verified 05/18/24 08:57 eucalyptus Allergy Severe Unknown Verified 05/18/24 08:57 NSAIDS (Non-Steroidal Allergy Severe Unknown Verified 05/18/24 08:57 Anti-Inflamma Iunxrvs-JRW-XxE Reductase Allergy Severe Unknown Verified 05/18/24 08:57 Inhibitor (Gbqwbxl-Gaa-Vao Reductase Inhibitor) PFSH Active Problems All Active Problems (Updated 05/19/24 @ 12:32 by Rell Grey MD) Acute GI bleeding (Acute) Acute exacerbation of CHF (congestive heart failure) (Acute) YARON (acute kidney injury) (Acute) Shortness of breath (Acute) Acute cough (Acute) Hypertension (Acute) Cellulitis of right lower leg (Acute) Laceration of left hand (Acute) Encounter for removal of nasal pack (Acute) Epistaxis (Acute) Cellulitis (Acute) NSTEMI (non-ST elevated myocardial infarction) (Acute) Acute CHF (Acute) Medical History Medical History (Updated 05/19/24 @ 12:32 by Rell Grey MD) A-fib Social History Social History (Updated 05/18/24 @ 10:42 by Giovani Tucker RN) Smoking Status: Former smoker If you are a former smoker, when did you quit? (Date/Year): 1974 How many cigarettes a day do you smoke? (20 cigarettes=1 Pk): 1 Second hand tobacco smoke exposure: No Do you dip or chew tobacco?: No Do you vape?: No Patient requests smoking cessation consult: No Initiate information on smoking cessation: No Relationship: Level: Assisted Home Mobility Equipment: Wheeled walker Do you feel safe in your home environment?: Yes Suffered physical, verbal, emotional, or financial abuse?: No History of Abuse: No ETOH Use: None Frequency: Occasional Substance Use: denies use POLST Patient has POLST: No Anesthesia Exam (Expanded) Exam General: Alert, Oriented x3 and Cooperative Dental: WNL Neck Mobility: Normal Mallampati classification: II Thyromental Distance: 4-6 cm Respiratory: Lungs clear Cardiovascular: Other (irregular) Exam Exam Vital Signs: Vital Signs x48h Temp Pulse Resp BP Pulse Ox 05/22/24 07:31 36.6 C 84 16 143/84 H 95 05/22/24 04:40 36.6 C 83 20 155/99 H 98 Plan Problem List (1) Acute exacerbation of CHF (congestive heart failure): Plan: Patient presented with SOB and LE edema after stopping her lasix on April 29 d/t an elevation of her creatinine. At the time her creatinine was 1.3 and today it is 3.0. Her CHF is likely contributing to her decreased kidney function so we will admit and slowly diurese her as indicated by her improvement of symptoms. Unsure when her last echo was but she meets regularly with her rail car repair carman, so we will attempt to get her records. She has no sign of infection w/ normal lung sounds, afebrile, normal WBC, and lack of urinary symptoms. * Start furosemide 40 mg IVP BID * Initiate eliquis 5mg PO BID * Continue metoprolol 200 mg PO daily (home medication) * Monitor telemetry Q4HR * Monitor kidney function via daily BMPs * Obtain echo records or repeat echo if unobtainable. Qualifiers: Heart failure type: unspecified Qualified Code(s): I50.9 - Heart failure, unspecified (2) Acute GI bleeding: (3) YARON (acute kidney injury): Plan: Since April 29, her creatinine has been increasing. It was originally 1.3 on the , then up to 3.3 on the , and is 3.0 today. She stopped her lasix on the , however, she has become more symptomatic and would benefit from diuretic treatment. * Start furosemide 40 mg IVP BID * Monitor kidney function via daily BMPs (4) A-fib: Plan: Patient with longstanding history of atrial fibrillation. Currently ventricular rate is controlled. * Continue metoprolol * Continue Eliquis (interchange for Xarelto in the hospital) Qualifiers: Atrial fibrillation type: unspecified chronic Qualified Code(s): I48.20 - Chronic atrial fibrillation, unspecified Plan Admit for observation and IV diuretics. Plan Anesthesia Type: Total IV Consent for Procedure(s) Verified and Reviewed: Yes Code Status: Do Not Attempt Resuscitation (discussed with patient, no shock no compressions, meds OK) ASA Classification ASA classification: 3-Severe systemic disease Is this case an emergency?: Yes
[2024-05-22] MEDS ORDERED: PROPOFOL 200 MG/20 ML VIAL IVP ONE (09:31)
[2024-05-22] MEDS ORDERED: LIDOCAINE-MPF 2% 5 ML VIAL ONE (09:31)
--- NOTE | 2024-05-22 10:05 | PROVIDER PROGRESS NOTE ---
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
--- NOTE | 2024-05-22 10:29 | ANESTHESIA POST OP EVALUATION ---
Anesthesia Post Eval Post Anesthesia Eval Vitals: Last Vital Signs Temp 36.7 C 05/22/24 10:13 Pulse 74 05/22/24 10:13 Resp 16 05/22/24 10:13 BP 104/60 05/22/24 10:13 Pulse Ox 95 05/22/24 10:13 CV Function Including HR & BP: Stable Pain Control: Satisfactory Nausea & Vomiting: Negative Mental Status: Baseline Respiratory Status: Airway Patent Hydration Status: Satisfactory Anesthesia Complications: None
[2024-05-22] MEDS: POTASSIUM CHLOR 10 MEQ/100 ML 10 MEQ/100 ML BAG IV SCH (11:09)
--- NOTE | 2024-05-22 11:27 | Discharge Summary ---
Discharge Summary Admit Date: 05/18/24 Discharge Date: 05/22/24 Discharging Provider: Dr. Rell Grey Primary Care Provider: Zander Santiago Code Status: Do Not Attempt Resuscitation Discharge Facility Name: Home DIAGNOSES Admission Diagnoses: Acute exacerbation of congestive heart failure Acute kidney injury Atrial fibrillation Discharge Diagnoses with Status of Each Condition: Acute exacerbation of congestive heart failurepatient presented with shortness of breath, lower extremity edema. She stopped taking her Lasix on 04/29 as per tax attorney recommendations due to elevation of her creatinine. We have been diuresing her with IV Lasix 40 mg twice daily here. Her weight has gone from 73.5 kg to 66.5 kg in her 5-day stay here. Her legs have much less pitting edema and it. She has made an average of 2 to 3 L every day of urine. Her creatinine was 2.0 in 01/2024, it is 2.8 currently, and has been stable during her diuresis here. This may be her new baseline, but she does have a nephrology appointment set up in the next 4 weeks. Will be discharging her on oral Lasix 40 mg daily. She is advised to maintain a fluid restriction and low-sodium diet on discharge. I also spoke with her tax attorney, Dr. Cantrell, during her stay here. He has a follow-up scheduled with her in the next few weeks as well. Acute GI bleedingduring her stay here, she had multiple episodes of dark stools, as well as bright blood per rectum, and occasional clots of blood. Her hemoglobin in 02/09 was 9.7, and is slowly down trended to 7.7 while she was here. Of note, she is on Xarelto at home for atrial fibrillation. This was held while she has been here, and Protonix was started. We will continue Protonix 40 mg twice a day. General surgery was consultedthey completed a flexible sigmoidoscopythey found a angiodysplastic lesion, which was cauterized. Will hold her Xarelto on discharge. Will set a follow-up appointment with her primary care provider in the next week, with a recheck of her hemoglobin then. If her hemoglobin is stable, and she is no longer having blood per stool, her anticoagulation can be resumed. She should be on Eliquis, not Xarelto due to her renal function. I did speak with Dr. Cantrell about whether he would like her to continue anticoagulation, and he does advise it after this episode of GI bleeding has been controlled. However, he thinks she may be a good candidate for the Watchman procedure. Acute kidney injurypatient's creatinine has been slowly uptrending. In 02/09 it was 2.0. Here, it has remained steady around 2.8. This may be her new baseline. Will discharge her on oral Lasix 40 mg daily to maintain a euvolemic status. She already has a nephrology appointment set up for the next month. Aortic stenosisrepeat echo does show aortic stenosis, mild to moderate. This may be the reason for angiodysplastic lesions. Continue follow-up with cardiology in the outpatient setting. She has a follow-up appoint with Dr. Cantrell already set. HPI History of Present Illness: Per [employer] student Kina: Patient is an 88-year-old female with a PMH significant for HTN, HLD, atrial fibrillation on xeralto, and CHF. She was brought to the ER from her assisted living facility with SOB and increased LE edema. She states her tax attorney stopped her lasix on April 29 d/t an elevation of her creatinine from 0.8 to 1.3. Today her creatinine is 3.0. Over the last 3 weeks, her dyspnea has worsened and she is unable to complete her usual laps around her facility or walk to the cafeteria without resting. Her LE swelling has also worsened and she has noticed a 20-25 lbs increase in her weight as well as weeping wounds on her legs, which are now healed. She says she sometimes wears "semi-compression boot socks" to help. Another recent change is her inability to sleep d/t persistent PND. She sleeps in a medical bed (ER note says she sleeps in a recliner) which allows for her to have her head and legs elevated, but this has not been helping her shortness of breath as of late. During rest she usually has no difficulty breathing, however, she says if she talks a lot then she will start to struggle. I did not observe this during my exam, she appeared unlabored and spoke at length without issue. She has no chest pain, cough, wheezing, fever, or chills. She does admit to being dizzy during the exam but says it's more d/t how tired she is. She has a bruise on her left adventist but says it is from accidentally hitting her head with the freezer door. This morning she did not take her medications but reports that these are primarily metoprolol, xeralto, some vitamins, and tylenol (3000 mg/day). She has a history of hyperglycemia/DM2 but was able to improve her A1c with lifestyle modifications. She says she was a social smoker for over 30 years but stopped in 1972. She no longer drinks alcohol and denies any substance use. She lives in an apartment with her , Lobito, in an assisted living facility. After changes in her health and having more birthdays, she reports that her is her designated decision maker and that she would like to be DNR. CONSULTS | PROCEDURES Consultations: General surgery, SW Procedures: Chest x-ray, echocardiogram, flexible sigmoidoscopy HOSPITAL COURSE Hospital Course: Patient is a 88-year-old female with a history of atrial fibrillation on Xarelto, aortic stenosis, chronic kidney disease, unclear baseline who presented with worsening swelling of her lower extremities. She was advised to hold her oral Lasix due to her creatinine steadily increasing. This led to a 30 pound weight gain of fluid. She also endorses a poor diet as she lives at assisted living facility, and has been consuming high salt diet as it is what they give her. While she was here, we diuresed herher weight decreased some 73.5 kg to 66.5 kg. She made about an average of 2 to 3 L of urine while she was here. Her legs have improved in appearance. Her creatinine has been stable, around 2.8. It was 2.0 in 02/09. This may be her new baseline, and she has an appointment with nephrology set up for the next month. Her atrial fibrillation was in controlled ventricular rate the whole time she was here. However, her hemoglobin dropped from 9.4 in January to about 7.7 while she was here. She had multiple episodes of dark stools with blood clots, as well as bright red blood per rectum. Her Xarelto was held, she was started on Protonix, and a flexible sigmoidoscopy was done. This revealed angiodysplastic lesion which was cauterized. Will discharge her without her Xarelto. Plan is for a follow-up appoint with her primary care provider in about a week to recheck her hemoglobin, reassess if she is having dark stools or bright blood per rectum, and resume Xarelto. If she continues to do so, she will need a repeat colonoscopy and EGD. Overall, patient was improved in terms of her lower extremity edema. Her hemoglobin had stabilized after unit of blood, and the cauterization. As such, she was deemed for suitable to discharge home with close follow-up with her primary care provider, cardiology, nephrology, and possibly general surgery if she needs full EGD and colonoscopy again. ALLERGIES Allergies Allergy/AdvReac Type Severity Reaction Status Date / Time aspirin Allergy Severe Unknown Verified 05/18/24 08:57 erythromycin base Allergy Severe Unknown Verified 05/18/24 08:57 eucalyptus Allergy Severe Unknown Verified 05/18/24 08:57 NSAIDS (Non-Steroidal Allergy Severe Unknown Verified 05/18/24 08:57 Anti-Inflamma Xtdcvaf-OOT-LjJ Reductase Allergy Severe Unknown Verified 05/18/24 08:57 Inhibitor (Jzooxpm-Qlq-Xqs Reductase Inhibitor) MEDICATIONS Ambulatory Orders Medication Instructions Recorded Confirmed multivitamin 1 cap PO DAILY 10/23/17 05/18/24 acetaminophen 500 mg tablet 1,000 mg PO Q6H PRN fever or pain 10/22/23 05/18/24 carboxymethylcellulose sodium 1 % 1 ea OPTH PRN PRN As Needed Per 10/22/23 05/18/24 eye gel in a dropperette (Refresh Provider Orders Celluvisc) cholecalciferol (vitamin D3) 25 1,000 unit PO DAILY 10/22/23 05/18/24 mcg (1,000 unit) capsule omega 5-guh-swj-fish oil 300 1 ea PO DAILY 10/22/23 05/18/24 mg-1,000 mg capsule (Fish Oil) psyllium husk 0.52 gram capsule 2 cap PO DAILY As Needed Per 10/22/23 05/18/24 (Metamucil) Provider Orders metoprolol succinate 100 mg 100 mg PO Q12H 05/18/24 05/18/24 tablet,extended release 24 hr furosemide 40 mg tablet (Lasix) 40 mg PO DAILY #30 tabs 05/22/24 pantoprazole 40 mg tablet,delayed 40 mg PO BID #60 tabs 05/22/24 release (Protonix) pantoprazole 40 mg tablet,delayed 40 mg PO BID 3 days #6 tabs 05/22/24 release (Protonix) PHYSICAL EXAM AT DISCHARGE Vital Signs: Vital Signs x48h Temp Pulse Resp BP Pulse Ox 05/22/24 12:13 97.5 F L 83 18 117/80 99 05/22/24 10:13 98.1 F 74 16 104/60 95 05/22/24 07:31 97.9 F 84 16 143/84 H 95 General Appearance: positive No acute distress and Alert; negative Anxious Eyes Bilateral: positive Normal inspection, PERRL and EOMI ENT: positive ENT inspection nml, Pharynx nml and No signs of dehydration Neck: positive Nml inspection, Thyroid nml and No JVD Respiratory: positive Chest non-tender, No respiratory distress and Breath sounds nml Cardiovascular: positive Irregularly irregular and Systolic murmur; negative Diastolic murmur Peripheral Pulses: positive 2+ Abdomen: positive Non-tender, No organomegaly, Nml bowel sounds and No distention Back: positive Nml inspection; negative CVA tenderness (R) or CVA tenderness (L) Skin: positive Color nml, No rash and Warm Extremities: positive Non-tender and Pedal edema (1+ bilaterally, improved) Neurologic/Psychiatric: positive Oriented x3 and Mood/affect nml LABS 05/22/24 05:30 05/22/24 05:30 DIAGNOSTIC IMAGING Diagnostic Imaging Results: Final report reviewed FOLLOW UP Follow Up: Follow-up with primary care provider. Follow-up with nephrology. Follow-up with cardiology. TIME SPENT Time Spent in Discharge (Minutes): 35 Discharge Plan Discharge Patient Disposition: [facility], Self Care Condition: Stable Prescriptions: New pantoprazole [Protonix] 40 mg tablet,delayed release (DR/EC) 40 mg PO BID Qty: 60 0RF furosemide [Lasix] 40 mg tablet 40 mg PO DAILY Qty: 30 2RF pantoprazole [Protonix] 40 mg tablet,delayed release (DR/EC) 40 mg PO BID 3 Days Qty: 6 0RF Continued multivitamin 1 EACH capsule 1 cap PO DAILY acetaminophen 500 MG tablet 1,000 mg PO Q6H PRN (Reason: fever or pain) cholecalciferol (vitamin D3) 25 MCG capsule 1,000 unit PO DAILY psyllium husk [Metamucil] 0.52 GM capsule 2 cap PO DAILY carboxymethylcellulose sodium [Refresh Celluvisc] 15 DROPS/0.4 ML dropperette,gel 1 ea OPTH PRN PRN (Reason: As Needed Per Provider Orders) omega 4-gya-qdk-fish oil [Fish Oil] 1 EACH capsule 1 ea PO DAILY metoprolol succinate 100 mg tablet extended release 24 hr 100 mg PO Q12H Patient Comments: 1 TAB EVERY 12 HOURS Discontinued Xarelto 15 mg tablet 15 mg PO QPM Activity Restrictions: Activity as Tolerated Diet: Cardiac Health Concerns: You came in because your legs were swollen. You are advised to hold your Lasix because your kidney numbers were getting worse. While you have been here, we have continued Lasix through your IV, so it was stronger, to get rid of the extra fluid in your legs. Your weight has steadily decreased from 73 kg down to 66.5 kgyou have lost a lot of water weight and your legs look better. Your kidney numbers have remained steady, but they are still worse than your normal, so I am glad that you are seeing a surfacer next month. I am going to be sending you home on oral Lasix to take once a day. While you were here, you were having dark stools with blood clots in your stool. Your blood levels started to drop. You received 1 unit of blood. I had the surgeon come speak with you who did a limited flexible sigmoidoscopy to take a look at the bottom part of your colon. Here, he found a vessel which may have been causing the bleeding, which he cauterized. I am hoping this is going to help with the bleeding. In the meantime, I want you to hold your Xarelto, your blood thinner. Xarelto is also not good for your kidneys, so when you do restart a blood thinner, your primary care provider will start you on something called Eliquis instead (better for your kidneys). I spoke with Dr. Cantrell about holding your blood thinner, and he is okay with you holding it until your bleeding stops. We will set up a follow-up appointment with your primary care provider in the next week, they will recheck your blood levels, and tell you when it is resafe to start. Please follow-up with your primary care provider, your tax attorney, and a surfacer. To sum it up, the changes to your medications are as follows: 1. Hold your Xarelto, your blood thinner, indefinitely. When you see your primary care provider, they will recheck your blood levels, and start you on another blood thinner called Eliquis because it is better for your kidneys, when they think it is safe for you to do so. 2. Continue Protonix twice a day for the next 30 days, this will help protect your stomach and your GI tract 3. Continue oral Lasix 40 mg once a day We are glad you are feeling better, thank you for letting us take care of you. Print Language: Omani Patient Instructions: Surgery Anesthesia After Stand Alone Forms: PCP List Follow-up Care: Zander Santiago MD [Primary Care Provider] -
[2024-05-22 12:15] VITALS: BP 117/80; TEMP 97.5; O2SAT 99
== END 2024-05-22 13:55 | disposition home or self-care (01) | DRG 291 ==
LOC: ED 08:55 → MS2 08:55
PROVIDERS: ADMIT Internal Medicine; ATTEND Internal Medicine

== ENCOUNTER 2024-07-23 21:26 | Observation (INO) ==
--- NOTE | 2024-07-23 21:28 | ED Physician Documentation ---
History of Present Illness Stated complaint Stated Complaint: LEFT THIGH BRUISING, INCREASING PAIN Chief complaint Chief Complaint: Ext Problem Additonal information Additional information: 89-year-old with history of CHF and atrial fibrillation on Eliquis presents with left thigh pain and swelling. Patient had a fall onto her left thigh on July 13. She was seen at [facility] and admitted to the hospital for CHF exacerbation. She did not have any significant hematoma of the left thigh then. She was discharged on Eliquis due to her CKD and prior treatment with Xarelto. After she went home, she was doing well and ambulating without difficulty. This evening she developed worsening left thigh pain and spasms prompting her to come to the emergency department. She denies any new trauma or injury to the left thigh. She has not had any recent falls. She denies any chest pain or shortness of breath. She has been taking her Eliquis 2.5 mg twice daily as instructed. Meds/Allgy Home Medications Ambulatory Orders Medication Instructions Recorded Confirmed multivitamin 1 cap PO DAILY 10/23/1705/11 acetaminophen 500 mg tablet 1,000 mg PO Q6H PRN fever or pain 10/22/23 07/20/24 carboxymethylcellulose sodium 1 % 1 ea OPTH PRN PRN As Needed Per 10/22/23 07/20/24 eye gel in a dropperette (Refresh Provider Orders Celluvisc) cholecalciferol (vitamin D3) 25 1,000 unit PO DAILY 07/20/24 mcg (1,000 unit) capsule omega 0-fkl-jbs-fish oil 300 1 ea PO DAILY 10/22/23 mg-1,000 mg capsule (Fish Oil) psyllium husk 0.52 gram capsule 2 cap PO DAILY As Need ed Per 10/22/23 07/20/24 (Metamucil) Provider Orders metoprolol succinate 100 mg 100 mg PO Q12H 05/18/24 tablet,extended release 24 hr pantoprazole 40 mg tablet,delayed 40 mg PO BID #60 tab s 05/22/24 07/20/24 release (Protonix) apixaban 2.5 mg tablet (Eliquis) mg PO 07/20/24 gemfibrozil 600 mg tablet mg PO 07/20/24 07/20/24 telmisartan 20 mg tablet mg PO 07/20/24 07/20/24 furosemide 40 mg tablet 40 mg PO DAILY 07/24/2409/10 Allergies Allergies Allergy/AdvReac Type Severity Reaction Status Date / Time aspirin Allergy Severe Unknown Verified 07/23/24 21:39 erythromycin base Allergy Severe Unknown Verified 07/23/24 21:39 eucalyptus Allergy Severe Unknown Verified 07/23/24 21:39 NSAIDS (Non-Steroidal Allergy Severe Unknown Verified 07/23/24 21:39 Anti-Inflamma Guutspf-BAE-EvQ Reductase Allergy Severe Unknown Verified 07/23/24 21:39 Inhibitor (Ywwgryw-Oya-Nxt Reductase Inhibitor) PFSH Active Problems All Active Problems (Updated 07/24/24 @ 01:39 by Bradley Lima MD) ABLA (acute blood loss anemia) (Acute) Hematoma of left thigh (Acute) Multiple contusions (Acute) Suture line intact (Acute) Skin tear (Acute) Contusion (Acute) Fall (Acute) Encounter for wound re-check (Acute) YARON (acute kidney injury) (Acute) Acute cough (Acute) Hypertension (Acute) Cellulitis of right lower leg (Acute) Laceration of left hand (Acute) Encounter for removal of nasal pack (Acute) Epistaxis (Acute) Cellulitis (Acute) NSTEMI (non-ST elevated myocardial infarction) (Acute) Medical History Medical History A-fib Social History Social History Smoking Status: Former smoker If you are a former smoker, when did you quit? (Date/Year): 1973 How many cigarettes a day do you smoke? (20 cigarettes=1 Pk): 1 Second hand tobacco smoke exposure: No Do you dip or chew tobacco?: No Do you vape?: No Patient requests smoking cessation consult: No Initiate information on smoking cessation: No Relationship: Level: Assisted Do you feel safe in your home environment?: Yes Suffered physical, verbal, emotional, or financial abuse?: No History of Abuse: No ETOH Use: None Frequency: Occasional Substance Use: denies use POLST Patient has POLST: No Exam Exam Vital Signs: Vital Signs x48h Temp Pulse Resp BP Pulse Ox O2 Flow Rate 07/24/24 01:47 36.1 C L 98 16 166/81 H 98 1 07/24/24 01:31 36.4 C L 102 H 16 148/91 H 98 1 07/24/24 00:47 117 H 16 163/91 H 97 07/23/24 21:28 36.5 C 93 18 176/93 H 92 Resting comfortably in no distress. She is not tachycardic or tachypneic. Lungs clear to auscultation bilaterally. S1-S2 audible. Abdomen soft nontender. There is a large area of bruising of the left lateral thigh from buttock to left knee. There is significant tenderness and swelling of the left thigh compared to the right. 2+ DP pulse bilaterally. Pitting edema from left foot to thigh. Sensation of the lower extremities intact bilaterally. Grossly moving all extremities without focal neurologic deficit. Results Vitals Vitals: Vital Signs - 24 hr 07/23/24 21:28 07/23/24 22:50 07/23/24 22:55 Temperature 36.5 C Temperature Source Temporal Artery Scan Pulse Rate 93 Respiratory Rate 18 Blood Pressure 176/93 H O2 Saturation 92 O2 Source Room air If not protocol: Oxygen Flow, liters/minute Pain Intensity 10 7 7 07/23/24 23:19 07/23/24 23:35 07/24/24 00:47 Temperature Temperature Source Pulse Rate 117 H Respiratory Rate 16 Blood Pressure 163/91 H O2 Saturation 97 O2 Source Nasal cannula If not protocol: Oxygen Flow, liters/minute Pain Intensity 0 4 4 07/24/24 01:31 07/24/24 01:47 Temperature 36.4 C L 36.1 C L Temperature Source Tympanic Tympanic Pulse Rate 102 H 98 Respiratory Rate 16 16 Blood Pressure 148/91 H 166/81 H O2 Saturation 98 98 O2 Source Nasal cannula Nasal cannula If not protocol: Oxygen Flow, liters/minute 1 1 Pain Intensity 2 2 Oxygen O2 Source Nasal cannula Labs Labs: Laboratory Tests 07/23/24 22:11 WBC 8.8 RBC 2.45 L Hgb 7.8 L Hct 26.1 L MCV 106.5 H MCH 31.8 H MCHC 29.9 L RDW 15.9 H Plt Count 332 MPV 8.5 Neut # (Auto) 7.0 H Lymph # (Auto) 0.8 L Carver # (Auto) 0.7 Eos # (Auto) 0.2 Baso # (Auto) 0.0 Absolute Nucleated RBC 0.02 Nucleated RBC % 0.2 PT 19.8 H INR 1.8 H APTT 32.5 Sodium 139 Potassium 4.0 Chloride 105 Carbon Dioxide 24 Anion Gap 10.0 BUN 72 H Creatinine 3.3 H Estimated GFR (MDRD) 13 L Glucose 176 H Calcium 9.0 Total Bilirubin 1.3 H AST 38 ALT 29 Alkaline Phosphatase 107 Total Protein 6.4 Albumin 3.8 Globulin 2.6 Albumin/Globulin Ratio 1.5 Blood Type AB POSITIVE Antibody Screen NEGATIVE PD Medical Decision Making ED course Complexity details: reviewed old records, reviewed results, re-evaluated p atient, considered differential, d/w patient, d/w family and d/w client insights consultant ED course: Presents with left thigh pain. She did have a traumatic injury around 10 days ago but denies any recent trauma or injury since then. The left thigh is tender with a palpable hematoma of the lateral thigh. Fortunately, she is hemodynamically stable. I will check labs and obtain CTA of the left thigh due to concerns for active hematoma extravasation. Hemoglobin is 7.9. When compared to recent discharge from [facility], this appears to be stable. CTA shows arterial extravasation. I did speak to [facility] vascular surgery who did not recommend transfer for acute intervention and felt the patient could be managed here. I spoke to our on-call surgeon who said the patient could be admitted here to medicine with surgical consultation if needed for a hematoma evaluation. I did reverse her Eliquis coagulopathy with PCC. I placed a binder over the hematoma to apply pressure. Patient admitted to hospitalist service for atraumatic hematoma. Critical Care Critical Care Provided: Yes Time(min): 35 Comments: Actively bleeding arterial hematoma of the left thigh. I had to reverse coagulopathy. I spoke to consultants to manage her care. Time Includes: Direct patient care, Review records, Reassess patient, Document care, Coordinate care and Medical consult Data interpretation: Labs and Pulse ox Discharge Plan Discharge Patient Disposition: [facility] DC/Xfer Condition: Serious Clinical Impression: Hematoma of left thigh, ABLA (acute blood loss anemia) Prescriptions: No Action multivitamin 1 EACH capsule 1 cap PO DAILY acetaminophen 500 MG tablet 1,000 mg PO Q6H PRN (Reason: fever or pain) cholecalciferol (vitamin D3) 25 MCG capsule 1,000 unit PO DAILY psyllium husk [Metamucil] 0.52 GM capsule 2 cap PO DAILY carboxymethylcellulose sodium [Refresh Celluvisc] 15 DROPS/0.4 ML dropp erette,gel 1 ea OPTH PRN PRN (Reason: As Needed Per Provider Orders) omega 4-whv-ajb-fish oil [Fish Oil] 1 EACH capsule 1 ea PO DAILY metoprolol succinate 100 mg tablet extended release 24 hr 100 mg PO Q12H Patient Comments: 1 TAB EVERY 12 HOURS pantoprazole [Protonix] 40 mg tablet,delayed release (DR/EC) 40 mg PO BID Qty: 60 0RF telmisartan 20 mg tablet PO Eliquis 2.5 mg tablet PO gemfibrozil 600 mg tablet PO Print Language: Colombian
--- OUTSIDE RECORDS SUMMARY | 2024-07-23 21:33 | EXTERNAL MEDICAL SUMMARY RPT | Continuity of Care Document ---
Author Organization [facility] Address [address] [address] Phone Care Team Providers Care Screen Printing Paster Name Role Phone Unavailable Unavailable Unavailable Candice Arias Unavailable Unavailable Medications date description facility 2024-07-13 00:00 Apixaban [facility] 2024-07-13 00:00 Acetaminophen [facility] 2024-07-13 00:00 Cholecalciferol (Vitamin D3) [facility] 2024-07-13 00:00 Ketotifen Fumarate [facility] 2024-07-13 00:00 Pantoprazole [facility] 2024-07-13 00:00 Metoprolol Succinate [facility] Problems date description facility 2024-04-27 10:21 Essential (primary) hypertensio n [facility] 2024-05-19 09:34 Unspecified atrial fibrillation [facility] 2024-05-19 09:34 Heart failure, unspecified [facility] 2024-05-19 09:34 Acute kidney [facility], [facility]ifi [facility] 2024-05-19 12:01 Unspecified [facility] 2024-05-19 12:01 Heart failure, unspecified [facility] 2024-05-19 12:01 Acute kidney failure, unspecifi ed [facility] 2024-05-19 12:07 Unspecified atrial fibrillation [facility] 2024-05-19 12:07 Heart failure, unspecified [facility] 2024-05-19 12:07 Acute kidney failure, unspecifi ed [facility] 2024-05-19 12:16 Unspecified atrial fibrillation [facility] 2024-05-19 12:16 Heart failure, unspecified [facility] 2024-05-19 12:16 Acute kidney failure, [facility]specifi ed [facility] 2024-05-21 13:56 Chronic atrial fibrillation, un specified [facility] 13:56 Unspecified atrial fibrillation [facility] 2024-05-21 13:56 Heart failure, unspecified [facility] 2024-05-21 13:56 Gastrointestinal hemorrhage, un specified [facility]24-[facility]21 13:56 Acute kidney failure, [facility]specifi ed [facility] 2024-05-22 05:14 Chronic atrial fibrillation, un specified [facility] 2024-05-22 05:14 Unspecified atrial fibrillation [facility] 2024-05-22 05:14 Heart failure, unspecified [facility] 2024-05-22 05:14 Gastrointestinal hemorrhage, un specified [facility] 2024-05-22 05:14 Acute kidney failure, unspecifi ed [facility] 2024-05-22 10:14 Chronic atrial fibrillation, un specified [facility] 2024-05-22 10:14 Unspecified atrial fibrillation [facility] 2024-05-22 10:14 Heart failure, unspecified [facility] 2024-05-22 10:14 Gastrointestinal hemorrhage, un specified [facility] 2024-05-22 10:14 Acute kidney failure, unspecifi ed [facility] 2024-05-22 10:21 Chronic atrial fibrillation, un specified [facility] 2024-05-22 10:21 Unspecified atrial fibrillation [facility] 2024-05-22 10:21 Heart failure, unspecified [facility] 2024-05-22 10:21 Gastrointestinal hemorrhage, un specified [facility] 2024-05-22 10:21 Acute kidney failure, unspecifi ed [facility] 2024-05-22 11:27 Chronic atrial fibrillation, un specified [facility] 2024-05-22 11:27 Unspecified atrial fibrillation [facility] 2024-05-22 11:27 Heart failure, unspecified [facility] 2024-05-22 11:27 Gastrointestinal hemorrhage, un specified [facility] 2024-05-22 11:27 Acute kidney failure, unspecifi ed [facility] 2024-05-22 11:35 Chronic atrial fibrillation, un specified [facility] 2024-05-22 11:35 Unspecified atrial fibrillation [facility] 2024-05-22 11:35 Heart failure, unspecified [facility] 2024-05-22 11:35 Gastrointestinal hemorrhage, un specified [facility] 2024-05-22 11:35 Acute kidney failure, unspecifi ed [facility] 2024-05-22 13:00 Chronic atrial fibrillation, un specified [facility] 2024-05-22 13:00 Unspecified atrial fibrillation [facility] 13:00 Heart failure, unspecified [facility] 2024-05-22 13:00 Gastrointestinal hemorrhage, un specified [facility] 2024-05-22 13:00 Acute kidney failure, [facility]specifi ed [facility] 2024-05-22 14:59 Chronic atrial fibrillation, un specified [facility] 2024-05-22 14:59 Unspecified atrial fibrillation [facility] 2024-05-22 14:59 Heart failure, unspecified [facility] 2024-05-22 14:59 Gastrointestinal hemorrhage, un specified [facility] 2024-05-22 14:59 Acute kidney failure, [facility]specifi ed [facility] 2024-05-22 15:00 Chronic atrial fibrillation, un specified [facility] 2024-05-22 15:00 Unspecified atrial fibrillation [facility] 2024-05-22 15:00 Heart failure, unspecified [facility] 2024-05-22 15:00 Gastrointestinal hemorrhage, un specified [facility] 2024-05-22 15:00 Acute kidney failure, [facility]specifi ed [facility] 2024-05-24 14:14 Hypertensive heart disease with heart failure [facility] 2024-[facility] 14:14 Chronic atrial fibrillation, un specified [facility] 2024-05-24 14:14 Unspecified atrial fibrillation [facility] 2024-05-24 14:14 Heart failure, unspecified [facility] 2024-05-24 14:14 Gastrointestinal hemorrhage, un specified [facility] 2024-05-24 14:14 Other specified soft tissue dis orders [facility] 2024-[facility]24 14:14 Acute kidney failure, unspecifi ed [facility] 2024-05-24 14:14 Shortness of breath [facility] 2024-07-13 00:00 Acute kidney injury [facility] 2024-07-13 00:00 [facility] 2024-07-13 00:00 Cont[facility] of hip and thigh [facility] 2024-07-13 00:00 Fall [facility] 2024-07-19 13:43 Unspecified injury of head, ini tial encounter [facility] 2024-07-20 10:40 Encounter for other specified a [facility] 2024-07-20 11:21 Encounter for other specified a [facility] Procedures date description facility 2024-07-13 00:00 Computed tomography of head or brain without contrast [facility] 2024-07-13 00:00 CT pelvis wo con [facility] 2024-07-13 00:00 X-ray of chest, [facility] 2024-07-13 00:00 XR pelvis, 1-2 views [facility] Results/Labs test date facility value unit notes Result panel 1 BASOPHILS # (AUTO) 2024-05-18 09:[address] [place] [address] 0.0 10 3/ul (missing) NRBC ABSOLUTE COUNT (AUTO) 2024-05-18 09:[address] [place] [address] 0.08 x10 3/ul (missing ) EOSINOPHILS # (AUTO) 2024-05-18 09:[address] [place] [address] 0.2 10 3/ul (missing ) BILIRUBIN,TOTAL 2024-05-18 09:[address] [place] [address] 0.5 m g/dl As of August 2022 testing method has changed, this may include reference ranges. MONOCYTES # (AUTO) 2024-05-18 09:[address] [place] [address] 0.6 10 3/ul (missing) NUCLEATED RED BLOOD CELLS AUTO 2024-05-18 09:[address] [place] [address] 0.9 /100wbc (missing ) ALBUMIN/GLOBULIN RATIO 2024-05-18 09:[address] [place] [address] 1.6 (missing) (missing ) LYMPHOCYTES # (AUTO) 2024-05-18 09:[address] [place] [address] 1.6 10 3/ul (missing ) CHLORIDE 2024-05-18 09:[address] [place] [address] 107 mmol/l As of August 2022 testing method has changed, this may include reference ranges. MEAN CORPUSCULAR VOLUME 2024-05-18 09:[address] [place] [address] 107.3 fl (missing ) ANION GAP 2024-05-18 09:25 [facility] 12.0 (ophelia g) (missing) GLUCOSE 2024-05-18 09:25 [facility] 127 mg/dl As of August 2022 testing method has changed, this may include reference ranges. SODIUM 2024-05-18 09:25 [facility] 138 mmol/l As of August 2022 testing method has changed, this may include reference ranges. GFR - MDRD 2024-05-18 09:25 [facility] 15 (freya ng) Social History date description facility 2024-07-13 00:00 Ex-smoker (finding) [facility] Vital Signs date measurement value units 2024-07-13 00:00 BP_diastolic 61 mmHg 2024-07-13 00:00 BP_systolic 111 mmHg 2024-07-13 00:00 heart_rate 82 /min 2024-07-13 00:00 height_metric 157.48 cm 2024-07-13 00:00 height_standard 62 in 2024-07-13 00:00 o2_saturation 94 % 2024-07-13 00:00 respiration_rate 20 /min 2024-07-13 00:00 weight_metric 70 kg 2024-07-13 00:00 weight_standard 154.32 lb 2024-07-16 00:00 BP_diastolic 70 mmHg 2024-07-16 00:00 BP_systolic 142 mmHg 2024-07-16 00:00 heart_rate 75 /min 2024-07-16 00:00 o2_saturation 98 % 2024-07-16 00:00 respiration_rate 20 /min 2024-07-16 00:00 temperature_metric 36.06 C 2024-07-16 00:00 temperature_standard 96.9 F
[2024-07-23] MEDS ORDERED: MORPHINE 10 MG/ML VIAL IVP PRN (22:00)
[2024-07-23 22:17] LABS: BASOPHILS % (AUTO) 0.5 %; EOSINOPHILS # (AUTO) 0.2 10^3/uL (0.0-0.7); EOSINOPHILS % (AUTO) 1.7 %; HCT - HEMATOCRIT 26.1 % (37.0-47.0); HGB - HEMOGLOBIN 7.8 g/dL (12.0-16.0); LYMPHOCYTES # (AUTO) 0.8 10^3/uL (1.5-3.5); LYMPHOCYTES % (AUTO) 9.6 %; MEAN CORPUSCULAR HEMOGLOBIN 31.8 pg (27.0-31.0); MEAN CORPUSCULAR HGB CONC 29.9 g/dL (32.0-36.0); MEAN CORPUSCULAR VOLUME 106.5 fL (81.0-99.0); MEAN PLATELET VOLUME 8.5 fL (7.9-10.8); MONOCYTES # (AUTO) 0.7 10^3/uL (0.0-1.0); MONOCYTES % (AUTO) 7.5 %; NEUTROPHILS % (AUTO) 80.2 %; NRBC ABSOLUTE COUNT (AUTO) 0.02 x10^3/uL; NUCLEATED RED BLOOD CELLS AUTO 0.2 /100WBC; PLT - PLATELET COUNT 332 10^3/uL (130-450); RED BLOOD COUNT 2.45 10^6/uL (4.20-5.40); RED CELL DISTRIBUTION WIDTH 15.9 % (12.0-15.0); WHITE BLOOD COUNT 8.8 x10^3/uL (4.8-10.8)
[2024-07-23] MEDS ORDERED: iohexoL-300 150 ML BOTTLE ONE (22:21)
[2024-07-23 22:27] LABS: PARTIAL THROMBOPLASTIN TIME 32.5 secs (24.9-33.3)
[2024-07-23 22:29] LABS: ALBUMIN 3.8 g/dL (3.2-5.5); ALBUMIN/GLOBULIN RATIO 1.5 (1.0-2.2); BILIRUBIN,TOTAL 1.3 mg/dL (0.2-1.0); CREATININE 3.3 mg/dL (0.6-1.3); TOTAL PROTEIN 6.4 g/dL (6.4-8.9)
[2024-07-23 22:32] LABS: INR 1.8 (0.8-1.2); PT - PROTHROMBIN TIME 19.8 secs (9.9-12.6)
[2024-07-23] MEDS: methocarbamoL 500 MG TABLET PO STA (22:50)
[2024-07-23] MEDS: HYDROmorphone 0.5 MG/0.5 ML SYRINGE IVP PRN (22:55)
[2024-07-23] MEDS: iohexoL-300 150 ML BOTTLE IVP ONE (23:36)
--- NOTE | 2024-07-24 00:25 | CT Report ---
PROCEDURE: CT Angio Lower Extremity LT INDICATIONS: left thigh hematoma TECHNIQUE: CT images were obtained of the left lower extremity with contrast in multiple phases. Multiplanar reformats were obtained. Maximum intensity projections and 3-D reformats were also obtained. CONTRAST: IV contrast COMPARISON: None. FINDINGS: Image quality: Diagnostic Bones: Left hip arthroplasty. Left knee arthroplasty. Degenerative lumbosacral changes partially seen. No pubic diastases. Soft tissues: Large hematoma involving the lateral thigh measuring 24 x 6 x 11 cm. This mostly involves the vastus lateralis. Diffuse soft tissue edema, worse in the lower leg. No rim-enhancing fluid collections identified. Vascular: Moderate aortoiliac atherosclerotic calcifications, partially visualized. Mild to moderate common femoral and superficial femoral atherosclerotic calcifications, with more focal narrowing of the abductor hiatus. Moderate to severe narrowing is seen of the popliteal artery. This area is not well assessed however due to metallic artifact. Mild to moderate disease of the calf small vessels, with two-vessel runoff at the ankle. Intermittent opacification due to atherosclerotic calcifications is noted. Active extravasation is seen in the lateral thigh hematoma. IMPRESSION: Bleeding seen in the lateral thigh hematoma, with arterial extravasation of contrast. The hematoma is large, measuring up to 24 cm in craniocaudal dimension, with mostly vastus lateralis involvement. 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 High-grade arterial disease in the superficial femoral and popliteal arteries. Moderate small vessel disease in the calf, with two-vessel runoff at the ankle. Hip and knee arthroplasties. Reviewed by: Son Louis MD on 07/24/2024 12:24 AM PDT Approved by: Son Louis MD on 07/24/2024 12:24 AM PDT Station ID: [id number]
[2024-07-24] MEDS: HUM PROTHROMBIN CPLX(PCC)-LANS 2,000 UNIT IV STA (01:10)
--- NOTE | 2024-07-24 01:58 | HISTORY & PHYSICAL EXAMINATION ---
Chief Complaint Chief Complaint Chief Complaint: L Thigh pain History of Present Illness Admitted From Admitted From:: ER History Obtained From Records Reviewed: Yes History obtained from: Pt, staff, chart Exam Limitations: Virtual exam History of Present Illness HPI Comment/Other: H&P was conducted via video remotely, using [employer]. [place] in [place] Phys[place] in [place]. RN is at bedside. 89 yo F with PMH of CHF, HTN, HLD, AFib on Eliquis presented to the ER for c/o 1 day h/o LLE pain. Pt had an episode of Syncope/fall on 07/13 during the night onto her L side. She went to [facility] and was admitted for the Syncope. She was D/C'd on 07/16 back to her [facility]. During her stay, her Xarelto was changed to Eliquis d/t elevated CR. On D/C her CR was 2.75 and Hgb 7.9. Pt felt tired, but otherwise, felt okay. Last night, after supper around 5:30P, she tried to get up to go to her room and found that she had L thigh pain and had difficulty getting up. It felt like a "mohinder horse." Since then, the pain worsened and she had difficulty getting comfortable and moving around. She did notice some swelling/"irregularity" of the leg. No bleeding, no change in diet, no CP/SOB/N/V. In the ER, HR 117, BP 179/73 Hgb 7.8, MCV 106.5, CR 3.3, Glc 176 CTA LLE: Bleeding seen in the lateral thigh hematoma, with arterial extravasation of contrast. The hematoma is large, measuring up to 24 cm in craniocaudal dimension, with mostly vastus lateralis involvement. 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 High-grade arterial disease in the superficial femoral and popliteal arteries. Moderate small vessel disease in the calf, with two-vessel runoff at the ankle.Hip and knee arthroplasties. An abdominal binder was placed on pts LLE/hematoma. Pt was given Morphine, Dilaudid, Robaxin, and PCC in the ER. ER Physician contacted Vascular Surgeon at and they did not recommend transfer. ER Physician contacted General Surgeon at [facility] and they will consult in AM. Review of Systems Status of ROS: 10 or more systems reviewed and unremarkable except as noted in history and below PFSH Active Problems All Active Problems (Updated 07/24/24 @ 01:39 by Bradley Lima MD) ABLA (acute blood loss anemia) (Acute) Hematoma of left thigh (Acute) Multiple contusions (Acute) Suture line intact (Acute) Skin tear (Acute) Contusion (Acute) Fall (Acute) Encounter for wound re-check (Acute) YARON (acute kidney injury) (Acute) Acute cough (Acute) Hypertension (Acute) Cellulitis of right lower leg (Acute) Laceration of left hand (Acute) Encounter for removal of nasal pack (Acute) Epistaxis (Acute) Cellulitis (Acute) NSTEMI (non-ST elevated myocardial infarction) (Acute) Medical History Medical History A-fib Social History Social History Smoking Status: Former smoker If you are a former smoker, when did you quit? (Date/Year): 1973 How many cigarettes a day do you smoke? (20 cigarettes=1 Pk): 1 Second hand tobacco smoke exposure: No Do you dip or chew tobacco?: No Do you vape?: No Patient requests smoking cessation consult: No Initiate information on smoking cessation: No Relationship: Level: Assisted Do you feel safe in your home environment?: Yes Suffered physical, verbal, emotional, or financial abuse?: No History of Abuse: No ETOH Use: None Frequency: Occasional Substance Use: denies use POLST Patient has POLST: No Meds/Allgy Home Medications Ambulatory Orders Medication Instructions Recorded Confirmed multivitamin 1 cap PO DAILY 10/23/1709/10 acetaminophen 500 mg tablet 1,000 mg PO TID fever or p ain 10/22/23 07/24/24 carboxymethylcellulose sodium 1 % 1 drp ophthalmic (ey e) DAILY PRN 10/22/23 07/24/24 eye gel in a dropperette (Refresh As Needed Per Provid er Orders Celluvisc) cholecalciferol (vitamin D3) 25 1,000 unit PO DAILY 07/24/24 mcg (1,000 unit) capsule omega 7-liz-jze-fish oil 300 1 ea PO DAILY 10/22/23 mg-1,000 mg capsule (Fish Oil) psyllium husk 0.52 gram capsule 2 cap PO DAILY As Need ed Per 10/22/23 07/24/24 (Metamucil) Provider Orders metoprolol succinate 100 mg 100 mg PO Q12H 05/18/24 tablet,extended release 24 hr pantoprazole 40 mg tablet,delayed 40 mg PO BID #60 tab s 05/22/24 07/24/24 release (Protonix) apixaban 2.5 mg tablet (Eliquis) 2.5 mg PO BID 5 07/24/24 furosemide 40 mg tablet 40 mg PO DAILY 07/24/2409/10 Allergies Allergies Allergy/AdvReac Type Severity Reaction Status Date / Time aspirin Allergy Severe Unknown Verified 07/23/24 21:39 erythromycin base Allergy Severe Unknown Verified 07/23/24 21:39 eucalyptus Allergy Severe Unknown Verified 07/23/24 21:39 NSAIDS (Non-Steroidal Allergy Severe Unknown Verified 07/23/24 21:39 Anti-Inflamma Eqggluy-GLT-LsW Reductase Allergy Severe Unknown Verified 07/23/24 21:39 Inhibitor (Eywyahs-Qao-Rnp Reductase Inhibitor) Exam Exam Vital Signs: Vital Signs x48h Temp Pulse Resp BP Pulse Ox O2 Flow Rate 07/24/24 01:47 36.1 C L 98 16 166/81 H 98 1 07/24/24 01:31 36.4 C L 102 H 16 148/91 H 98 1 07/24/24 00:47 117 H 16 163/91 H 97 07/23/24 21:28 36.5 C 93 18 176/93 H 92 Constitutional normal general appearance and no apparent distress [facility] normocephalic Eyes EOMs intact bilaterally and no scleral icterus Chest cart stethoscope not working; per ER Provider: CTA B/L Respiratory cart stethoscope not working; per ER Provider: Irreg Irreg, no murmurs Gastrointestinal per ER Provider: non-distended, NT, Soft Extremities per ER Provider:large area of bruising of the left lateral thigh from buttock to left knee, significant tenderness and swelling of the left thigh compared to the right. 2+ DP pulse bilaterally. Pitting edema from left foot to thigh. Neurology A+Ox3, normal speech, cooperative; per ER Provider: NFD Conclusion/Plan Problem List (1) Hematoma of left thigh: Plan L Thigh Hematoma LLE pain Anemia, macrocytic On AC Tachycardia -HR 117 -Hgb 7.8, MCV 106.5 -CTA LLE: Bleeding seen in the lateral thigh hematoma, with arterial extravasation of contrast. The hematoma is large, measuring up to 24 cm in craniocaudal dimension, with mostly vastus lateralis involvement. 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 High-grade arterial disease in the superficial femoral and popliteal arteries. Moderate small vessel disease in the calf, with two-vessel runoff at the ankle.Hip and knee arthroplasties. -An abdominal binder was placed on pts LLE/hematoma. -Pt was given Morphine, Dilaudid, Robaxin, and PCC in the ER. -ER Physician contacted Vascular Surgeon at and they did not recommend transfer. -ER Physician contacted General Surgeon at [facility] and they will consult in AM. -admit to Obs/MedSurg -continue binder on hematoma -pain control -serial H/H q8hrs; transfuse for Hgb<7 -check B12/Folate -continue to hold home medication: Eliquis -General Surgeon consult in AM/pending Acute on Chronic Renal Failure -CR 3.3; baseline 2.5 per chart -hold home medications: Telmisartan; decrease Lasix dose -avoid nephrotoxins Hyperglycemia -Glc 176 -check Hgba1c CHF HTN HLD AFib on Eliquis -BP 179/73 -continue home medications: Metoprolol, Lasix at lower dose -hold home medications: Eliquis, Telmisartan Weakness -PT/OT eval VTE Prophylaxis: C/I d/t bleeding Code Status: D/W pt; she is Full Code ~Jennifer Smyth MD Hospitalist Lab Results Lab results reviewed: Yes 07/23/24 22:11 07/23/24 22:11
[2024-07-24] MEDS ORDERED: ONDANSETRON 4 MG/2 ML VIAL IVP PRN (02:27)
[2024-07-24] MEDS ORDERED: ONDANSETRON ODT 4 MG TABLET TL PRN (02:27)
[2024-07-24] MEDS ORDERED: SODIUM CHLORIDE FLUSH 0.9% 10 ML SYRINGE IVP PRN (02:27)
[2024-07-24] MEDS: METOPROLOL SUCCINATE 50 MG TABLET PO SCH (03:40)
[2024-07-24 04:35] LABS: BASOPHILS % (AUTO) 0.3 %; EOSINOPHILS % (AUTO) 0.2 %; HCT - HEMATOCRIT 21.5 % (37.0-47.0); LYMPHOCYTES # (AUTO) 0.8 10^3/uL (1.5-3.5); LYMPHOCYTES % (AUTO) 8.6 %; MEAN CORPUSCULAR HEMOGLOBIN 31.3 pg (27.0-31.0); MEAN CORPUSCULAR HGB CONC 28.8 g/dL (32.0-36.0); MEAN CORPUSCULAR VOLUME 108.6 fL (81.0-99.0); MEAN PLATELET VOLUME 9.1 fL (7.9-10.8); MONOCYTES # (AUTO) 0.8 10^3/uL (0.0-1.0); MONOCYTES % (AUTO) 8.5 %; NEUTROPHILS # (AUTO) 7.2 10^3/uL (1.5-6.6); NEUTROPHILS % (AUTO) 81.9 %; NRBC ABSOLUTE COUNT (AUTO) 0.02 x10^3/uL; NUCLEATED RED BLOOD CELLS AUTO 0.2 /100WBC; PLT - PLATELET COUNT 304 10^3/uL (130-450); RED BLOOD COUNT 1.98 10^6/uL (4.20-5.40); RED CELL DISTRIBUTION WIDTH 16.2 % (12.0-15.0); WHITE BLOOD COUNT 8.8 x10^3/uL (4.8-10.8)
[2024-07-24 04:40] LABS: HGB - HEMOGLOBIN 6.2 g/dL (12.0-16.0)
[2024-07-24 04:50] LABS: CALCIUM 8.5 mg/dL (8.5-10.3); CREATININE 3.1 mg/dL (0.6-1.3); POTASSIUM 3.8 mmol/L (3.5-4.5)
[2024-07-24] MEDS: ACETAMINOPHEN 500 MG TABLET PO SCH (06:26)
--- NOTE | 2024-07-24 06:43 | CONSULTATION NOTE ---
Referring Provider Name of Referring Provider:: Dr. Lima Consult Date: 07/24/24 Chief Complaint Chief Complaint Chief Complaint: Left thigh pain History of Present Illness History of Present Illness HPI Comment/Other: Lupe is an 89 year old female with atrial fibrillation and CHF who fell and struck the lateral aspect of the left thigh July 14. Yesterday she developed swelling and pain in the area of concern and came to the ED for evaluation. She was found to be anemic and CT confirmed the presence of a large, left lateral thigh hematoma with CT evidence of an active blush. She was admitted to the hospital and a compression dressing was placed around the left thigh. Blood transfusions were initiated and her DOAC was stopped. I was asked to evaluate her this morning. Over the evening she has remained hemodynamically stable and her left lateral thigh pain, although still poresent, is no worse. Her Hgb prior to blood transfusion this morning is 6.2. PFS Active Problems All Active Problems (Updated 07/24/24 @ 01:39 by Bradley Lima MD) ABLA (acute blood loss anemia) (Acute) Hematoma of left thigh (Acute) Multiple contusions (Acute) Suture line intact (Acute) Skin tear (Acute) Contusion (Acute) Fall (Acute) Encounter for wound re-check (Acute) YARON (acute kidney injury) (Acute) Acute cough (Acute) Hypertension (Acute) Cellulitis of right lower leg (Acute) Laceration of left hand (Acute) Encounter for removal of nasal pack (Acute) Epistaxis (Acute) Cellulitis (Acute) NSTEMI (non-ST elevated myocardial infarction) (Acute) Medical History Medical History A-fib Social History Social History Smoking Status: Former smoker If you are a former smoker, when did you quit? (Date/Year): 1973 How many cigarettes a day do you smoke? (20 cigarettes=1 Pk): 1 Second hand tobacco smoke exposure: No Do you dip or chew tobacco?: No Do you vape?: No Patient requests smoking cessation consult: No Initiate information on smoking cessation: No Smoking Status Details: "not since " Relationship: Level: Assisted Home Mobility Equipment: Walker Do you feel safe in your home environment?: Yes Suffered physical, verbal, emotional, or financial abuse?: No History of Abuse: No ETOH Use: None Frequency: Occasional Substance Use: denies use POLST Patient has POLST: No Meds/Allgy Home Medications Ambulatory Orders Medication Instructions Recorded Confirmed multivitamin 1 cap PO DAILY 10/23/1709/10 acetaminophen 500 mg tablet 1,000 mg PO TID fever or p ain 10/22/23 07/24/24 carboxymethylcellulose sodium 1 % 1 drp ophthalmic (ey e) DAILY PRN 10/22/23 07/24/24 eye gel in a dropperette (Refresh As Needed Per Provid er Orders Celluvisc) cholecalciferol (vitamin D3) 25 1,000 unit PO DAILY 07/24/24 mcg (1,000 unit) capsule omega 4-mux-ecy-fish oil 300 1 ea PO DAILY 10/22/23 mg-1,000 mg capsule (Fish Oil) psyllium husk 0.52 gram capsule 2 cap PO DAILY As Need ed Per 10/22/23 07/24/24 (Metamucil) Provider Orders metoprolol succinate 100 mg 100 mg PO Q12H 05/18/24 tablet,extended release 24 hr pantoprazole 40 mg tablet,delayed 40 mg PO BID #60 tab s 05/22/24 07/24/24 release (Protonix) apixaban 2.5 mg tablet (Eliquis) 2.5 mg PO BID 5 07/24/24 furosemide 40 mg tablet 40 mg PO DAILY 07/24/2409/10 Allergies Allergies Allergy/AdvReac Type Severity Reaction Status Date / Time aspirin Allergy Severe Unknown Verified 07/23/24 21:39 erythromycin base Allergy Severe Unknown Verified 07/23/24 21:39 eucalyptus Allergy Severe Unknown Verified 07/23/24 21:39 NSAIDS (Non-Steroidal Allergy Severe Unknown Verified 07/23/24 21:39 Anti-Inflamma Wobtdpv-UYY-BqI Reductase Allergy Severe Unknown Verified 07/23/24 21:39 Inhibitor (Akomrzk-Khd-Anb Reductase Inhibitor) Results Lab Results 07/24/24 04:19 07/24/24 04:19 Other Lab Results: Lab Results x24hrs 07/24/24 07/23/24 Range/Units 04:19 22:11 WBC 8.8 8.8 (4.8-10.8) x10^3/uL RBC 1.98 L 2.45 L (4.20-5.40) 10^6/uL Hgb 6.2 L* 7.8 L (12.0-16.0) g/dL Hct 21.5 L 26.1 L (37.0-47.0) % MCV 108.6 H 106.5 H (81.0-99.0) fL MCH 31.3 H 31.8 H (27.0-31.0) pg MCHC 28.8 L 29.9 L (32.0-36.0) g/dL RDW 16.2 H 15.9 H (12.0-15.0) % Plt Count 304 332 (130-450) 10^3/uL MPV 9.1 8.5 (7.9-10.8) fL Neut # (Auto) 7.2 H 7.0 H (1.5-6.6) 10^3/uL Lymph # (Auto) 0.8 L 0.8 L (1.5-3.5) 10^3/uL [place] # (Auto) 0.8 0.7 (0.0-1.0) 10^3/uL Eos # (Auto) 0.0 0.2 (0.0-0.7) 10^3/uL Baso # (Auto) 0.0 0.0 (0.0-0.1) 10^3/uL Absolute Nucleated RBC 0.02 0.02 x10^3/uL Nucleated RBC % 0.2 0.2 /100WBC PT 19.8 H (9.9-12.6) secs INR 1.8 H (0.8-1.2) APTT 32.5 (24.9-33.3) secs Sodium 139 139 (135-145) mmol/L Potassium 3.8 4.0 (3.5-4.5) mmol/L Chloride 106 105 (101-111) mmol/L Carbon Dioxide 23 24 (21-32) mmol/L Anion Gap 10.0 10.0 (6-13) BUN 69 H 72 H (6-20) mg/dL Creatinine 3.1 H 3.3 H (0.6-1.3) mg/dL Estimated GFR (MDRD) 14 L 13 L (>89) Glucose 169 H 176 H (74-104) mg/dL Calcium 8.5 9.0 (8.5-10.3) mg/dL Total Bilirubin 1.3 H (0.2-1.0) mg/dL AST 38 (10-42) IU/L ALT 29 (10-60) IU/L Alkaline Phosphatase 107 (42-121) IU/L Total Protein 6.4 (6.4-8.9) g/dL Albumin 3.8 (3.2-5.5) g/dL Globulin 2.6 (2.1-4.2) g/dL Albumin/Globulin Ratio 1.5 (1.0-2.2) Vitamin B12 847 (180-914) pg/mL Folate > 44.6 (5.90 - >24.8) ng/mL Blood Type AB POSITIVE Antibody Screen NEGATIVE Crossmatch IS Only See Detail Diagnostic Imaging Results Diagnostic Imaging Results: positive Final report reviewed Exam Exam Vital Signs: Vital Signs x48h Temp Pulse Pulse Resp BP BP Pulse Ox 07/24/24 05:52 36.4 C L 88 16 119/77 95 07/24/24 05:33 36.4 C L 95 93 H 120/70 07/24/24 03:40 95 136/83 H 07/24/24 02:56 36.2 C L 113 H 16 145/90 H 95 07/24/24 02:43 97 16 125/88 98 07/24/24 01:47 36.1 C L 98 16 166/81 H 98 07/24/24 01:31 36.4 C L 102 H 16 148/91 H 98 07/24/24 00:47 117 H 16 163/91 H 97 O2 Flow Rate 07/24/24 05:52 07/24/24 05:33 07/24/24 03:40 07/24/24 02:56 07/24/24 02:43 1 07/24/24 01:47 1 07/24/24 01:31 1 07/24/24 00:47 Constitutional normal general appearance and no apparent distress HENMT normocephalic, head/scalp atraumatic and hearing grossly normal bilaterally Eyes PERRL Neck/C-Spine trachea midline Respiratory breath sounds equal bilaterally Cardiovascular normal heart rate noted Gastrointestinal abdomen normal to inspection Extremities Ecchymosis and swelling of left thigh with a tense subcutaneous hematoma Psychiatry mental status grossly normal, thought process normal, cooperative and affect normal Conclusion/Plan Problem List (1) Hematoma of left thigh: Plan: 1) Follow H&H and transfuse as indicated 2) Schedule for I&D of the left lateral thigh hematoma tomorrow. This will give her enough time to clear the Eliquis, resolve her acute blood loss anemia, and minimize surgical blood loss. The hematoma is so large that non-operative management will likely lead to skin necrosis if it remains undrained. Consent: Lupe has been counseled for the procedure (Incision and drainage of left lateral thigh hematoma), it's indications, risks, benefits and expected outcome as well as alternative therapies. We specifically discussed risks associated with anesthesia, bleeding, and infection. We also discussed the possible need for a blood transfusion with its risks and benefits. Lupe understands, agrees, and consents to the proposed operative strategy and requests that we proceed with the procedure as outlined in our discussion. Joe Toledo MD, FACS General Surgery Service Lab Results 07/24/24 04:19 07/24/24 04:19 Diagnostic Imaging Results Diagnostic Imaging Results: positive Final report reviewed Diagnostic Imaging Results Comments: CT image reviewed by me personally - MARIXA
[2024-07-24] MEDS ORDERED: PSYLLIUM PACKET PO PRN (07:01)
[2024-07-24] MEDS: MULTIVITAMIN TABLET PO SCH (08:15)
[2024-07-24] MEDS: OMEGA-3 ACID ETHYL ESTERS 1 GM CAPSULE PO SCH (08:15)
[2024-07-24] MEDS: CHOLECALCIFEROL 25 MCG TABLET PO SCH (08:16)
[2024-07-24] MEDS: FUROSEMIDE 20 MG TABLET PO SCH (08:16)
[2024-07-24] MEDS: PANTOPRAZOLE 40 MG TABLET PO SCH (08:27)
[2024-07-24] MEDS ORDERED: FUROSEMIDE 20 MG TABLET PO SCH (09:00)
--- NOTE | 2024-07-24 09:13 | PHARMACY PROGRESS NOTE ---
Best Possible Medication History Admit Date and Time: 07/24/24 0214 Home Medications Medication Instructions Recorded Confirmed Type multivitamin 1 cap PO DAILY 10/23/1709/10 History acetaminophen 500 mg tablet 1,000 mg PO TID fever or p ain 10/22/23 07/24/24 History carboxymethylcellulose sodium 1 % 1 drp ophthalmic (ey e) DAILY PRN 10/22/23 07/24/24 History eye gel in a dropperette (Refresh As Needed Per Provid er Orders Celluvisc) cholecalciferol (vitamin D3) 25 1,000 unit PO DAILY 07/24/24 History mcg (1,000 unit) capsule omega 6-fti-xtv-fish oil 300 1 ea PO DAILY 10/22/23 History mg-1,000 mg capsule (Fish Oil) psyllium husk 0.52 gram capsule 2 cap PO DAILY As Need ed Per 10/22/23 07/24/24 History (Metamucil) Provider Orders metoprolol succinate 100 mg 100 mg PO Q12H 05/18/24 History tablet,extended release 24 hr pantoprazole 40 mg tablet,delayed 40 mg PO BID #60 tab s 05/22/24 07/24/24 Rx release (Protonix) apixaban 2.5 mg tablet (Eliquis) 2.5 mg PO BID 5 07/24/24 History furosemide 40 mg tablet 40 mg PO DAILY 07/24/2409/10 History Processed by: Nursing Medications reviewed in ED?: Yes Medication History completed: Yes Secondary Source(s): Pharmacy records and Insurance records [facility] Statement: As the person ultimately responsible for medication therapy, providers are able to order a medication from an existing home medication list in [facility] via the "Reconcile Routine" prior to Confirmation of that medication by direct support professional. Such practice is discouraged except when the physician, in their clinical judgment, deems that a medical need exists for a medication without regard to previous use.
[2024-07-24 11:57] LABS: HCT - HEMATOCRIT 23.8 % (37.0-47.0); HGB - HEMOGLOBIN 7.3 g/dL (12.0-16.0)
[2024-07-24] MEDS: SODIUM CHLORIDE FLUSH 0.9% 10 ML SYRINGE IVP SCH (12:55)
[2024-07-24 14:15] LABS: ESTIMATED AVERAGE GLUCOSE 103 mg/dL (70-100); HEMOGLOBIN A1c% 5.2 % (4.27-6.07)
--- NOTE | 2024-07-24 17:21 | PROVIDER PROGRESS NOTE ---
Progress Note Progress Note Progress Note: General Surgery Progress Note Lupe is comfortable and has minimal left thigh discomfort. She is eating a fruit salad with cottage cheese for dinner and is in good spirits. Examination of the left thigh reveals extensive ecchymosis of the skin and a ballottable fullness in the lateral aspect of the thigh. The overlying skin is viable and the fullness seems less tense compared to this morning. She will be NPO after midnight and my plan in the OR tomorrow is to first locate the fluid with a needle and attempt aspiration of any unclotted blood. The goal is to remove enough fluid to reduce the risk of skin necrosis. Any residual clotted blood should resolve over time. If aspiration is not possible, she will undergo formal I&D. I explained this to her today and she understands and agrees. Joe Toledo MD, [facility] General Surgery Service
[2024-07-24 20:06] LABS: HCT - HEMATOCRIT 22.6 % (37.0-47.0); HGB - HEMOGLOBIN 7.1 g/dL (12.0-16.0)
[2024-07-24] MEDS: oxyCODONE 5 MG TABLET PO PRN (23:29)
[2024-07-25 05:11] LABS: BASOPHILS # (AUTO) 0.1 10^3/uL (0.0-0.1); BASOPHILS % (AUTO) 0.7 %; EOSINOPHILS # (AUTO) 0.4 10^3/uL (0.0-0.7); EOSINOPHILS % (AUTO) 4.5 %; HCT - HEMATOCRIT 22.2 % (37.0-47.0); LYMPHOCYTES # (AUTO) 1.2 10^3/uL (1.5-3.5); LYMPHOCYTES % (AUTO) 13.4 %; MEAN CORPUSCULAR HEMOGLOBIN 32.2 pg (27.0-31.0); MEAN CORPUSCULAR HGB CONC 31.1 g/dL (32.0-36.0); MEAN CORPUSCULAR VOLUME 103.7 fL (81.0-99.0); MEAN PLATELET VOLUME 8.5 fL (7.9-10.8); MONOCYTES # (AUTO) 0.8 10^3/uL (0.0-1.0); MONOCYTES % (AUTO) 9.2 %; NEUTROPHILS # (AUTO) 6.5 10^3/uL (1.5-6.6); NEUTROPHILS % (AUTO) 71.3 %; NRBC ABSOLUTE COUNT (AUTO) 0.07 x10^3/uL; NUCLEATED RED BLOOD CELLS AUTO 0.8 /100WBC; PLT - PLATELET COUNT 237 10^3/uL (130-450); RED BLOOD COUNT 2.14 10^6/uL (4.20-5.40); RED CELL DISTRIBUTION WIDTH 17.3 % (12.0-15.0); WHITE BLOOD COUNT 9.1 x10^3/uL (4.8-10.8)
[2024-07-25 05:18] LABS: HGB - HEMOGLOBIN 6.9 g/dL (12.0-16.0)
[2024-07-25 05:23] LABS: CALCIUM 8.5 mg/dL (8.5-10.3); CREATININE 2.7 mg/dL (0.6-1.3); POTASSIUM 3.8 mmol/L (3.5-4.5)
--- NOTE | 2024-07-25 08:00 | PROVIDER PROGRESS NOTE ---
Subjective Subjective Subjective: Patient was doing much better this morning prior to incision and drainage. She states that her legs feel less tight. She denies any fevers or chills. Her pain is well-controlled. Current Medications Current Medications Current Medications: Current Medications Generic Name Dose Route Start Last Admin Trade Name Galloq PRN Reason Stop Dose Admin Acetaminophen 1,000 mg 07/24/24 06:00 07/25/24 06:40 Acetaminophen 500 Mg Tablet PO Not Given TID ABEL Cholecalciferol 25 mcg 07/24/24 09:00 07/24/24 08:16 Cholecalciferol 25 Mcg Tablet PO 25 mcg DAILY ABEL Administration Furosemide 20 mg 07/24/24 09:00 07/24/24 08:16 Furosemide 20 Mg Tablet PO 20 mg DAILY ABEL Administration Hydromorphone HCl 0.3 mg 07/23/24 22:04 07/23/24 22:55 Hydromorphone 0.5 Mg/0.5 Ml Syringe IVP 0.3 mg Q1H PRN Administration Analgesia Metoprolol Succinate 100 mg 07/25/24 13:00 Metoprolol Succinate 50 Mg Tablet PO BID ABEL Multivitamins 1 tab 07/24/24 09:00 07/24/24 08:15 Multivitamin Tablet PO 1 tab DAILY ABEL Administration Yunzh-5-Hesg Ethyl Esters 1 gm 07/24/24 09:00 07/24/24 08:15 [place]-3 Acid Ethyl Esters 1 Gm Capsule PO 1 gm DAILY ABEL Administration Ondansetron HCl 4 mg 07/24/24 02:27 Ondansetron Odt 4 Mg Tablet TL Q6HR PRN Nausea / Vomiting Ondansetron HCl 4 mg 07/24/24 02:27 Ondansetron 4 Mg/2 Ml Vial IVP Q6HR PRN Nausea / Vomiting Oxycodone HCl 5 mg 07/24/24 02:27 07/25/24 06:50 Oxycodone 5 Mg Tablet PO 5 mg Q4HR PRN Administration Pain 5 to 7 Pantoprazole Sodium 40 mg 07/24/24 09:00 07/24/24 22:05 Pantoprazole 40 Mg Tablet PO 40 mg BID ABEL Administration Psyllium Hydrophilic Mucilloid 1 packet 07/24/24 07:01 Psyllium Packet PO DAILY PRN Constipation Sodium Chloride 10 ml 07/24/24 02:27 Sodium Chloride Flush 0.9% 10 Ml Syringe IVP PRN PRN NEEDED PER PROVIDER ORDERS Sodium Chloride 10 ml 07/24/24 09:00 07/24/24 23:25 Sodium Chloride Flush 0.9% 10 Ml Syringe IVP 10 ml 0100,0900,1700 [facility] Administration Objective Vital Signs/Intake & Output Reviewed Vital Signs: Yes Vital Signs: Vital Signs x48h Temp Pulse Pulse Resp BP Pulse Ox 07/25/24 07:45 97.7 F 82 16 112/63 94 07/25/24 06:48 97.9 F 85 18 118/64 92 07/25/24 06:29 98.1 F 92 16 115/75 92 07/25/24 03:29 94 140/69 H Intake & Output: Intake & Output 07/22/24 07/23/24 07/24/24 07/25/24 23:59 23:59 23:59 23:59 Intake Total 2220 / 2220 0 / 0 Output Total 900 / 900 400 / 400 Balance 1320 / 1320 -400 / -400 Weight (kg) 74.8 kg 70 kg Objective General Appearance: positive No acute distress and Alert; negative Anxious Eyes Bilateral: positive Normal inspection and PERRL ENT: positive ENT inspection nml, Pharynx nml and No signs of dehydration Neck: positive Nml inspection, Thyroid nml and No JVD Respiratory: positive Chest non-tender, No respiratory distress and Breath sounds nml; negative Wheezes, Rales or Rhonchi Cardiovascular: positive No murmur, No gallop and Irregularly irregular; negative Tachycardia Abdomen: positive Non-tender, No organomegaly, Nml bowel sounds and No distention Rectal: positive Non-tender, Black stool and Bloody stool Back: positive Nml inspection; negative CVA tenderness (R) or CVA tenderness (L) Skin: positive Color nml, No rash, Warm and Dry Extremities: positive Non-tender, Full ROM, Nml appearance and Pedal edema (2+ edema bilaterally up to knees; improving ) Neurologic/Psychiatric: positive Oriented x3, Motor nml and Mood/affect nml Lab Results 07/25/24 05:04 07/25/24 05:04 Other Labs: Lab Results x24hrs 07/25/24 07/24/24 07/24/24 Range/Units 05:04 19:57 11:46 WBC 9.1 (4.8-10.8) x10^3/uL RBC 2.14 L (4.20-5.40) 10^6/uL Hgb 6.9 L* 7.1 L 7.3 L (12.0-16.0) g/dL Hct 22.2 L 22.6 L 23.8 L (37.0-47.0) % MCV 103.7 H (81.0-99.0) fL MCH 32.2 H (27.0-31.0) pg MCHC 31.1 L (32.0-36.0) g/dL RDW 17.3 H (12.0-15.0) % Plt Count 237 (130-450) 10^3/uL MPV 8.5 (7.9-10.8) fL Neut # (Auto) 6.5 (1.5-6.6) 10^3/uL Lymph # (Auto) 1.2 L (1.5-3.5) 10^3/uL [place] # (Auto) 0.8 (0.0-1.0) 10^3/uL Eos # (Auto) 0.4 (0.0-0.7) 10^3/uL Baso # (Auto) 0.1 (0.0-0.1) 10^3/uL Absolute Nucleated RBC 0.07 x10^3/uL Nucleated RBC % 0.8 /100WBC Sodium 138 (135-145) mmol/L Potassium 3.8 (3.5-4.5) mmol/L Chloride 107 (101-111) mmol/L Carbon Dioxide 25 (21-32) mmol/L Anion Gap 6.0 (6-13) BUN 58 H (6-20) mg/dL Creatinine 2.7 H (0.6-1.3) mg/dL Estimated GFR (MDRD) 17 L (>89) Glucose 106 H (74-104) mg/dL Estimat Average Glucose (70-100) mg/dL Hemoglobin A1c % (4.27-6.07) % Calcium 8.5 (8.5-10.3) mg/dL Magnesium 2.0 (1.7-2.3) mg/dL Blood Type Antibody Screen Crossmatch IS Only 07/24/24 07/23/24 Range/Units 04:19 22:11 WBC (4.8-10.8) x10^3/uL RBC (4.20-5.40) 10^6/uL Hgb (12.0-16.0) g/dL Hct (37.0-47.0) % MCV (81.0-99.0) fL MCH (27.0-31.0) pg MCHC (32.0-36.0) g/dL RDW (12.0-15.0) % Plt Count (130-450) 10^3/uL MPV (7.9-10.8) fL Neut # (Auto) (1.5-6.6) 10^3/uL Lymph # (Auto) (1.5-3.5) 10^3/uL [place] # (Auto) (0.0-1.0) 10^3/uL Eos # (Auto) (0.0-0.7) 10^3/uL Baso # (Auto) (0.0-0.1) 10^3/uL Absolute Nucleated RBC x10^3/uL Nucleated RBC % /100WBC Sodium (135-145) mmol/L Potassium (3.5-4.5) mmol/L Chloride (101-111) mmol/L Carbon Dioxide (21-32) mmol/L Anion Gap (6-13) BUN (6-20) mg/dL Creatinine (0.6-1.3) mg/dL Estimated GFR (MDRD) (>89) Glucose (74-104) mg/dL Estimat Average Glucose 103 H (70-100) mg/dL Hemoglobin A1c % 5.2 (4.27-6.07) % Calcium (8.5-10.3) mg/dL Magnesium (1.7-2.3) mg/dL Blood Type AB POSITIVE Antibody Screen NEGATIVE Crossmatch IS Only See Detail Diagnostic Imaging Diagnostic Imaging Results: positive Final report reviewed Assessment/Plan Problem List (1) Hematoma of left thigh:
[2024-07-25] MEDS ORDERED: LIDOCAINE 1%-EPI 1:100000 20 ML MDV ONE ×2 (08:08→09:09)
[2024-07-25] MEDS ORDERED: BUPIVACAINE 0.5% PF 10 ML VIAL ONE (08:09)
--- NOTE | 2024-07-25 08:18 | ANESTHESIA PROCEDURE NOTE ---
Pre-Anesthesia VS, & Labs Diagnosis Surgical Diagnosis:: Left thigh hematoma Procedure Procedure: left thigh incision and drainage Vitals Vital Signs: Temp Pulse Resp BP Pulse Ox O2 Flow Rate 36.5 C 82 16 112/63 94 1 07/25/24 07:45 07/25/24 07:45 07/25/24 07:45 07/25/24 07:45 07/25/24 07:45 07/24/24 02:43 NPO NPO: >8 hours Is Patient ?: Not Applicable Lab Results Current Lab Results: Laboratory Tests 07/25/24 05:04: WBC 9.1, RBC 2.14 L, Hgb 6.9 L*, Hct 22.2 L, MCV 103.7 H, MCH 32.2 H, MCHC 31.1 L, RDW 17.3 H, Plt Count 237, MPV 8.5, Neut # (Auto) 6.5, L ymph # (Auto) 1.2 L, [place] # (Auto) 0.8, Eos # (Auto) 0.4, Baso # (Auto) 0.1, Absolute Nucleated RBC 0.07, Nucleated RBC % 0.8, Sodium 138, Potassium 3.8, Chloride 107, Carbon Dioxide 25, Anion Gap 6.0, BUN 58 H, Creatinine 2.7 H, E stimated GFR (MDRD) 17 L, Glucose 106 H, Calcium 8.5, Magnesium 2.0 07/24/24 19:57: Hgb 7.1 L, Hct 22.6 L 07/24/24 11:46: Hgb 7.3 L, Hct 23.8 L 07/24/24 04:19: WBC 8.8, RBC 1.98 L, Hgb 6.2 L*, Hct 21.5 L, MCV 108.6 H, MCH 31.3 H, MCHC 28.8 L, RDW 16.2 H, Plt Count 304, MPV 9.1, Neut # (Auto) 7.2 H, L ymph # (Auto) 0.8 L, [place] # (Auto) 0.8, Eos # (Auto) 0.0, Baso # (Auto) 0.0, Absolute Nucleated RBC 0.02, Nucleated RBC % 0.2, Sodium 139, Potassium 3.8, Chloride 106, Carbon Dioxide 23, Anion Gap 10.0, BUN 69 H, Creatinine 3.1 H, E stimated GFR (MDRD) 14 L, Glucose 169 H, Estimat Average Glucose 103 H, Hemoglobin A1c % 5.2, Calcium 8.5, Vitamin B12 847, Folate > 44.6 07/23/24 22:11: WBC 8.8, RBC 2.45 L, Hgb 7.8 L, Hct 26.1 L, MCV 106.5 H, MCH 31.8 H, MCHC 29.9 L, RDW 15.9 H, Plt Count 332, MPV 8.5, Neut # (Auto) 7.0 H, L ymph # (Auto) 0.8 L, [place] # (Auto) 0.7, Eos # (Auto) 0.2, Baso # (Auto) 0.0, Absolute Nucleated RBC 0.02, Nucleated RBC % 0.2, PT 19.8 H, INR 1.8 H, APTT 32.5, Sodium 139, Potassium 4.0, Chloride 105, Carbon Dioxide 24, Anion Gap 10.0, BUN 72 H, Creatinine 3.3 H, Estimated GFR (MDRD) 13 L, Glucose 176 H, Calcium 9.0, Total Bilirubin 1.3 H, AST 38, ALT 29, Alkaline Phosphatase 107, Total Protein 6.4, Albumin 3.8, Globulin 2.6, Albumin/Globulin Ratio 1.5, Blood Type AB POSITIVE, Antibody Screen NEGATIVE, Crossmatch IS Only See Detail Lab results reviewed: Yes 07/25/24 05:04 07/25/24 05:04 Meds/Allgy Home Medications Ambulatory Orders Medication Instructions Recorded Confirmed multivitamin 1 cap PO DAILY 10/23/1709/10 acetaminophen 500 mg tablet 1,000 mg PO TID fever or p ain 10/22/23 07/24/24 carboxymethylcellulose sodium 1 % 1 drp ophthalmic (ey e) DAILY PRN 10/22/23 07/24/24 eye gel in a dropperette (Refresh As Needed Per Provid er Orders Celluvisc) cholecalciferol (vitamin D3) 25 1,000 unit PO DAILY 07/24/24 mcg (1,000 unit) capsule omega 8-kxb-dnt-fish oil 300 1 ea PO DAILY 10/22/23 mg-1,000 mg capsule (Fish Oil) psyllium husk 0.52 gram capsule 2 cap PO DAILY As Need ed Per 10/22/23 07/24/24 (Metamucil) Provider Orders metoprolol succinate 100 mg 100 mg PO Q12H 05/18/24 tablet,extended release 24 hr pantoprazole 40 mg tablet,delayed 40 mg PO BID #60 tab s 05/22/24 07/24/24 release (Protonix) apixaban 2.5 mg tablet (Eliquis) 2.5 mg PO BID 5 07/24/24 furosemide 40 mg tablet 40 mg PO DAILY 07/24/2409/10 Allergies Allergies Allergy/AdvReac Type Severity Reaction Status Date / Time aspirin Allergy Severe Unknown Verified 07/23/24 21:39 erythromycin base Allergy Severe Unknown Verified 07/23/24 21:39 eucalyptus Allergy Severe Unknown Verified 07/23/24 21:39 NSAIDS (Non-Steroidal Allergy Severe Unknown Verified 07/23/24 21:39 Anti-Inflamma Poxzyyb-NID-FdN Reductase Allergy Severe Unknown Verified 07/23/24 21:39 Inhibitor (Gvpfsln-Ptb-Dvv Reductase Inhibitor) PFSH Active Problems All Active Problems (Updated 07/25/24 @ 08:29 by Concha Carbone CRNA) ABLA (acute blood loss anemia) (Acute) Hematoma of left thigh (Acute) Multiple contusions (Acute) Skin tear (Acute) Contusion (Acute) Fall (Acute) YARON (acute kidney injury) (Acute) Acute cough (Acute) Hypertension (Acute) Medical History Medical History (Updated 07/25/24 @ 08:29 by Concha Carbone CRNA) Suture line intact Encounter for wound re-check Cellulitis Laceration of left hand Cellulitis of right lower leg H/O sigmoidoscopy Encounter for removal of nasal pack Epistaxis NSTEMI (non-ST elevated myocardial infarction) A-fib Surgical History Surgical History (Updated 07/25/24 @ 08:27 by Cocnha Carbone CRNA) History of hysterectomy H/O total hip arthroplasty Hx of total knee arthroplasty Social History Social History Smoking Status: Former smoker If you are a former smoker, when did you quit? (Date/Year): 1973 How many cigarettes a day do you smoke? (20 cigarettes=1 Pk): 1 Second hand tobacco smoke exposure: No Do you dip or chew tobacco?: No Do you vape?: No Patient requests smoking cessation consult: No Initiate information on smoking cessation: No Smoking Status Details: "not since " Relationship: Level: Assisted Home Mobility Equipment: Walker Do you feel safe in your home environment?: Yes Suffered physical, verbal, emotional, or financial abuse?: No History of Abuse: No ETOH Use: None Frequency: Occasional Substance Use: denies use POLST Patient has POLST: No Anesthesia Exam (Expanded) Exam General: Alert, Oriented x3 and Cooperative Dental: WNL Mouth Openin Fingerbreadth Neck Mobility: Reduced Mallampati classification: II Thyromental Distance: 4-6 cm Respiratory: Lungs clear Cardiovascular: Other (afib) Exam Exam Vital Signs: Vital Signs x48h Temp Pulse Pulse Resp BP Pulse Ox 07/25/24 07:45 36.5 C 82 16 112/63 94 07/25/24 06:48 36.6 C 85 18 118/64 92 07/25/24 06:29 36.7 C 92 16 115/75 92 07/25/24 03:29 94 140/69 H Plan Plan Anesthesia Type: MAC Consent for Procedure(s) Verified and Reviewed: Yes Code Status: Attempt Resuscitation ASA Classification ASA classification: 3-Severe systemic disease Is this case an emergency?: No
[2024-07-25] MEDS ORDERED: PROPOFOL 200 MG/20 ML VIAL IVP ONE (08:31)
[2024-07-25] MEDS ORDERED: fentaNYL 100 MCG/2 ML VIAL ONE (08:31)
[2024-07-25] MEDS ORDERED: ceFAZolin 1 GM VIAL ONE (08:55)
--- NOTE | 2024-07-25 09:59 | OPERATIVE REPORT ---
Operative Report General Admit Date: 07/24/24 Procedure Data: Operation Date: 07/25/24 08:00 Proposed Procedures p Incision and Drainage(Left) - Joe Toledo MD Anesthesia Type General Other Other Information/Narrative: PROCEDURE DATE: 07/25/2024 PREOPERATIVE DIAGNOSIS: Lupe is an 89 year old female with a large left lateral thigh subcutaneous hematoma that is causing ischemia of the overlying epidermis. She is taken to the operating room for Incision and Drainage of this hematoma. POSTOPERATIVE DIAGNOSIS: Left lateral thigh subcutaneous hematoma. NAME OF PROCEDURE: Incision and drainage ofleft lateral thigh subcutaneous hematoma] SURGEON: Joe Toledo MD, FACS FIREFIGHTING EQUIPMENT SPECIALIST SURGEON: None ANESTHESIA: General Mask ESTIMATED BLOOD LOSS: 10 mL. DRAINS: 1 1/2" [place] SPECIMEN: None COMPLICATIONS None FINDINGS: Large clotted mass of blood in the subcutaneous space of the lateral left thigh. No evidence of active bleeding. Several skin blisters present due to the presence of the hematoma but the epidermis appeared viable otherwise. DESCRIPTION OF OPERATION: After consent for the procedure was obtained, the patient was brought to the operating room where in the supine position, general anesthesia was administered. A surgical time-out was performed, indicating the patient and the procedure to be performed. The patient was slightly rolled to her right using a wedge support under the left buttocks and the left knee was flexed and supported with towels. The left lateral thigh was prepped with alcohol-free betadine and draped in a sterile fashion. 1% lidocaine with epinephrine for local anesthesia. A 16 guage needle was placed into the subcutaneous mass but no free fluid, only clotted blood was o btained. A 4 cm vertical incision over the inferior aspect of the hematoma was made with a scalpel and the subcutaneous space entered. A large amount of clotted blood was encounter and digital exploration of the cavity disrupted the thrombus. Evacuation of the clot was performed using a combination of saline irrigation, saline/peroxide irrigation, gentle debridement with a sponge stick, ring forceps to remove large clots, and a jet pulse allergist immunologist to remove residual clot. Reinspection of the cavity revealed no evidence of bleeding. A 1 1/2" wide [place] was placed into the wound and split at the end so that the drain would cover the anterior and posterior aspects of the subcutaneous space. The skin incision was approximated in the superior aspect with two 3-0 silk sutures, the most inferior suture used to secure the Marol drain. The drain was covered with an ABD dressing and the thigh wrapped with a Kerlix rolled gauze secured in place with an 6" ANAYELI wrap. Sponge, needle, and instrument counts were correct at the conclusion of the procedure. The patient was awakened from general anesthesia. She tolerated the procedure well and was brought to the recovery room with stable vital signs.
--- NOTE | 2024-07-25 10:10 | ANESTHESIA POST OP EVALUATION ---
Anesthesia Post Eval Post Anesthesia Eval Vitals: Last Vital Signs Temp 36.4 C L 07/25/24 09:55 Pulse 98 07/25/24 09:55 Resp 16 07/25/24 09:55 BP 152/88 H 07/25/24 09:55 Pulse Ox 97 07/25/24 09:55 O2 Flow Rate 1 07/24/24 02:43 CV Function Including HR & BP: Stable Pain Control: Satisfactory Nausea & Vomiting: Negative Mental Status: Baseline Respiratory Status: Airway Patent Hydration Status: Satisfactory Anesthesia Complications: None
--- NOTE | 2024-07-25 10:11 | ANESTHESIA PROCEDURE NOTE ---
Pre-Anesthesia VS, & Labs Diagnosis Surgical Diagnosis:: Left thigh hematoma Vitals Vital Signs: Temp Pulse Resp BP Pulse Ox O2 Flow Rate 36.4 C L 98 16 152/88 H 97 1 07/25/24 09:55 07/25/24 09:55 07/25/24 09:55 07/25/24 09:55 07/25/24 09:55 07/24/24 02:43 Lab Results Current Lab Results: Laboratory Tests 07/25/24 05:04: WBC 9.1, RBC 2.14 L, Hgb 6.9 L*, Hct 22.2 L, MCV 103.7 H, MCH 32.2 H, MCHC 31.1 L, RDW 17.3 H, Plt Count 237, MPV 8.5, Neut # (Auto) 6.5, L ymph # (Auto) 1.2 L, Gilliam # (Auto) 0.8, Eos # (Auto) 0.4, Baso # (Auto) 0.1, Absolute Nucleated RBC 0.07, Nucleated RBC % 0.8, Sodium 138, Potassium 3.8, Chloride 107, Carbon Dioxide 25, Anion Gap 6.0, BUN 58 H, Creatinine 2.7 H, E stimated GFR (MDRD) 17 L, Glucose 106 H, Calcium 8.5, Magnesium 2.0 07/24/24 19:57: Hgb 7.1 L, Hct 22.6 L 07/24/24 11:46: Hgb 7.3 L, Hct 23.8 L 07/24/24 04:19: WBC 8.8, RBC 1.98 L, Hgb 6.2 L*, Hct 21.5 L, MCV 108.6 H, MCH 31.3 H, MCHC 28.8 L, RDW 16.2 H, Plt Count 304, MPV 9.1, Neut # (Auto) 7.2 H, L ymph # (Auto) 0.8 L, Gilliam # (Auto) 0.8, Eos # (Auto) 0.0, Baso # (Auto) 0.0, Absolute Nucleated RBC 0.02, Nucleated RBC % 0.2, Sodium 139, Potassium 3.8, Chloride 106, Carbon Dioxide 23, Anion Gap 10.0, BUN 69 H, Creatinine 3.1 H, E stimated GFR (MDRD) 14 L, Glucose 169 H, Estimat Average Glucose 103 H, Hemoglobin A1c % 5.2, Calcium 8.5, Vitamin B12 847, Folate > 44.6 07/23/24 22:11: WBC 8.8, RBC 2.45 L, Hgb 7.8 L, Hct 26.1 L, MCV 106.5 H, MCH 31.8 H, MCHC 29.9 L, RDW 15.9 H, Plt Count 332, MPV 8.5, Neut # (Auto) 7.0 H, L ymph # (Auto) 0.8 L, Gilliam # (Auto) 0.7, Eos # (Auto) 0.2, Baso # (Auto) 0.0, Absolute Nucleated RBC 0.02, Nucleated RBC % 0.2, PT 19.8 H, INR 1.8 H, APTT 32.5, Sodium 139, Potassium 4.0, Chloride 105, Carbon Dioxide 24, Anion Gap 10.0, BUN 72 H, Creatinine 3.3 H, Estimated GFR (MDRD) 13 L, Glucose 176 H, Calcium 9.0, Total Bilirubin 1.3 H, AST 38, ALT 29, Alkaline Phosphatase 107, Total Protein 6.4, Albumin 3.8, Globulin 2.6, Albumin/Globulin Ratio 1.5, Blood Type AB POSITIVE, Antibody Screen NEGATIVE, Crossmatch IS Only See Detail 07/25/24 05:04 07/25/24 05:04 Meds/Allgy Home Medications Ambulatory Orders Medication Instructions Recorded Confirmed multivitamin 1 cap PO DAILY 10/23/17 0609/10 acetaminophen 500 mg tablet 1,000 mg PO TID fever or p ain 10/22/23 07/24/24 carboxymethylcellulose sodium 1 % 1 drp ophthalmic (ey e) DAILY PRN 10/22/23 07/24/24 eye gel in a dropperette (Refresh As Needed Per Provid er Orders Celluvisc) cholecalciferol (vitamin D3) 25 1,000 unit PO DAILY 07/24/24 mcg (1,000 unit) capsule omega 1-hnz-crt-fish oil 300 1 ea PO DAILY 10/22/23 mg-1,000 mg capsule (Fish Oil) psyllium husk 0.52 gram capsule 2 cap PO DAILY As Need ed Per 10/22/23 07/24/24 (Metamucil) Provider Orders metoprolol succinate 100 mg 100 mg PO Q12H 05/18/24 tablet,extended release 24 hr pantoprazole 40 mg tablet,delayed 40 mg PO BID #60 tab s 05/22/24 07/24/24 release (Protonix) apixaban 2.5 mg tablet (Eliquis) 2.5 mg PO BID 5 07/24/24 furosemide 40 mg tablet 40 mg PO DAILY 07/24/2409/10 Allergies Allergies Allergy/AdvReac Type Severity Reaction Status Date / Time aspirin Allergy Severe Unknown Verified 07/23/24 21:39 erythromycin base Allergy Severe Unknown Verified 07/23/24 21:39 eucalyptus Allergy Severe Unknown Verified 07/23/24 21:39 NSAIDS (Non-Steroidal Allergy Severe Unknown Verified 07/23/24 21:39 Anti-Inflamma Jpagnhs-PHT-HlW Reductase Allergy Severe Unknown Verified 07/23/24 21:39 Inhibitor (Nvrcfah-Foa-Rnc Reductase Inhibitor) PFSH Active Problems All Active Problems (Updated 07/25/24 @ 10:10 by Concha Carbone CRNA) Encounter for wound re-check (Acute) Suture line intact (Acute) ABLA (acute blood loss anemia) (Acute) Hematoma of left thigh (Acute) Multiple contusions (Acute) Skin tear (Acute) Contusion (Acute) Fall (Acute) YARON (acute kidney injury) (Acute) Acute cough (Acute) Hypertension (Acute) Medical History Medical History (Updated 07/25/24 @ 10:10 by Concha Carbone CRNA) Cellulitis Laceration of left hand Cellulitis of right lower leg H/O sigmoidoscopy Encounter for removal of nasal pack Epistaxis NSTEMI (non-ST elevated myocardial infarction) A-fib Surgical History Surgical History (Updated 07/25/24 @ 08:27 by Concha Carbone CRNA) History of hysterectomy H/O total hip arthroplasty Hx of total knee arthroplasty Social History Social History Smoking Status: Former smoker If you are a former smoker, when did you quit? (Date/Year): 1973 How many cigarettes a day do you smoke? (20 cigarettes=1 Pk): 1 Second hand tobacco smoke exposure: No Do you dip or chew tobacco?: No Do you vape?: No Patient requests smoking cessation consult: No Initiate information on smoking cessation: No Smoking Status Details: "not since " Relationship: Level: Assisted Home Mobility Equipment: Walker Do you feel safe in your home environment?: Yes Suffered physical, verbal, emotional, or financial abuse?: No History of Abuse: No ETOH Use: None Frequency: Occasional Substance Use: denies use POLST Patient has POLST: No Anesthesia Exam (Expanded) Exam Dental: WNL Exam Exam Vital Signs: Vital Signs x48h Temp Pulse Pulse Pulse Resp BP BP 07/25/24 09:55 36.4 C L 98 16 152/88 H 07/25/24 09:50 90 17 147/79 H 07/25/24 09:45 36.5 C 96 12 138/91 H 07/25/24 09:42 36.7 C 107 H 10 L 138/90 H 07/25/24 07:45 36.5 C 82 16 112/63 07/25/24 06:48 36.6 C 85 18 118/64 07/25/24 06:29 36.7 C 92 16 115/75 07/25/24 03:29 94 140/69 H Pulse Ox 07/25/24 09:55 97 07/25/24 09:50 97 07/25/24 09:45 96 07/25/24 09:42 100 07/25/24 07:45 94 07/25/24 06:48 92 07/25/24 06:29 92 07/25/24 03:29 Plan Problem List (1) Hematoma of left thigh: Plan: 1) Follow H&H and transfuse as indicated 2) Schedule for I&D of the left lateral thigh hematoma tomorrow. This will give her enough time to clear the Eliquis, resolve her acute blood loss anemia, and minimize surgical blood loss. The hematoma is so large that non-operative management will likely lead to skin necrosis if it remains undrained. Consent: Lupe has been counseled for the procedure (Incision and drainage of left lateral thigh hematoma), it's indications, risks, benefits and expected outcome as well as alternative therapies. We specifically discussed risks associated with anesthesia, bleeding, and infection. We also discussed the possible need for a blood transfusion with its risks and benefits. Lupe understands, agrees, and consents to the proposed operative strategy and requests that we proceed with the procedure as outlined in our discussion. Joe Toledo MD, [facility] General Surgery Service ASA Classification ASA classification: 3-Severe systemic disease Is this case an emergency?: No
[2024-07-25 11:38] LABS: HCT - HEMATOCRIT 29.3 % (37.0-47.0); HGB - HEMOGLOBIN 9.1 g/dL (12.0-16.0)
--- NOTE | 2024-07-25 12:10 | Discharge Summary ---
Discharge Summary Admit Date: 07/24/24 Discharge Date: 07/25/24 Discharging Provider: Dr. Rell Grey Primary Care Provider: Zander Santiago Code Status: Attempt Resuscitation Discharge Facility Name: [facility], with [facility] DIAGNOSES Admission Diagnoses: Left thigh hematoma Left lower extremity pain Macrocytic anemia On anticoagulation Tachycardia Acute on chronic renal failure Hyperglycemia Congestive heart failure Hypertension Hyperlipidemia Atrial fibrillation on Eliquis Discharge Diagnoses with Status of Each Condition: Left thigh hematomaCTA was completed which showed bleeding in the lateral thigh hematoma, measuring up to 24 cm. General surgery was consulted, completed incision and drainage with Marlo drain in place. Advised to hold Eliquis for at least 48 hours, or until the bleeding completely stops. Also advised to talk with her upscale security officer, Dr. Cantrell about holding Eliquis indefinitely at her age, and with this history of frequent bleeding. She has already spoken with him about the Watchman procedure. Will send a few doses of oxycodone to assist with pain in the next few days. Anemiapatient received 2 units PRBCs, her hemoglobin is now increased to 9, stable. Acute on chronic renal failurecontinue Lasix daily. Creatinine is back down at her baseline of around 2.7 as of this morning. Continue to follow-up with nephrology in the outpatient setting. Hypertensioncontinue home medications, metoprolol. Atrial fibrillationcontinue metoprolol. Eliquis currently held, advised to hold on discharge. HPI History of Present Illness: Per Dr. Smyth: H&P was conducted via video remotely, using [employer]. Patient is in [place]. Physician is in [place]. RN is at bedside. 89 yo F with PMH of CHF, HTN, HLD, AFib on Eliquis presented to the ER for c/o 1 day h/o LLE pain. Pt had an episode of Syncope/fall on 07/13 during the night onto her L side. She went to [facility] and was admitted for the Syncope. She was D/C'd on 07/16 back to her [facility]. During her stay, her Xarelto was changed to Eliquis d/t elevated CR. On D/C her CR was 2.75 and Hgb 7.9. Pt felt tired, but otherwise, felt okay. Last night, after supper around 5:30P, she tried to get up to go to her room and found that she had L thigh pain and had difficulty getting up. It felt like a "mohinder horse." Since then, the pain worsened and she had difficulty getting comfortable and moving around. She did notice some swelling/"irregularity" of the leg. No bleeding, no change in diet, no CP/SOB/N/V. In the ER, HR 117, BP 179/73 Hgb 7.8, MCV 106.5, CR 3.3, Glc 176 CTA LLE: Bleeding seen in the lateral thigh hematoma, with arterial extravasation of contrast. The hematoma is large, measuring up to 24 cm in craniocaudal dimension, with mostly vastus lateralis involvement. 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 High-grade arterial disease in the superficial femoral and popliteal arteries. Moderate small vessel disease in the calf, with two-vessel runoff at the ankle.Hip and knee arthroplasties. An abdominal binder was placed on pts LLE/hematoma. Pt was given Morphine, Dilaudid, Robaxin, and PCC in the ER. ER Physician contacted Vascular Surgeon at and they did not recommend transfer. ER Physician contacted General Surgeon at [facility] and they will consult in AM. CONSULTS | PROCEDURES Consultations: General surgery Procedures: CTA LLE, incision and drainage HOSPITAL COURSE Hospital Course: Patient is a 89-year-old female with a history of atrial fibrillation on Eliquis who presented for 1 to 2-day history of left lower extremity pain. Of note, she had an episode of syncope on 07/13, and she was admitted to [facility] for further workup. She had some pain in her left thigh since that fall, but acutely worsened. CTA showed large hematoma. General surgery was consulted, and they performed an incision and drainage. Marlo drain is still in place. She received 2 units of packed red blood cells, and her hemoglobin has been stable. PT/OT did evaluate the patient, and recommend home health care. Patient will be discharged back to her assisted living facility with home health. Dressing change instructions will be provided to them as well. She is advised to follow-up closely with her upscale security officer, primary care provider, carrot harvester. ALLERGIES Allergies Allergy/AdvReac Type Severity Reaction Status Date / Time aspirin Allergy Severe Unknown Verified 07/23/24 21:39 erythromycin base Allergy Severe Unknown Verified 07/23/24 21:39 eucalyptus Allergy Severe Unknown Verified 07/23/24 21:39 NSAIDS (Non-Steroidal Allergy Severe Unknown Verified 07/23/24 21:39 Anti-Inflamma Pdrhtkg-AZU-FtG Reductase Allergy Severe Unknown Verified 07/23/24 21:39 Inhibitor (Ogdspiw-Kqh-Yxi Reductase Inhibitor) MEDICATIONS Ambulatory Orders Medication Instructions Recorded Confirmed multivitamin 1 cap PO DAILY 10/23/1709/10 acetaminophen 500 mg tablet 1,000 mg PO TID fever or p ain 10/22/23 07/24/24 carboxymethylcellulose sodium 1 % 1 drp ophthalmic (ey e) DAILY PRN 10/22/23 07/24/24 eye gel in a dropperette (Refresh As Needed Per Provid er Orders Celluvisc) cholecalciferol (vitamin D3) 25 1,000 unit PO DAILY 07/24/24 mcg (1,000 unit) capsule omega 9-lvo-vuw-fish oil 300 1 ea PO DAILY 10/22/23 mg-1,000 mg capsule (Fish Oil) psyllium husk 0.52 gram capsule 2 cap PO DAILY As Need ed Per 10/22/23 07/24/24 (Metamucil) Provider Orders metoprolol succinate 100 mg 100 mg PO Q12H 05/18/24 tablet,extended release 24 hr pantoprazole 40 mg tablet,delayed 40 mg PO BID #60 tab s 05/22/24 07/24/24 release (Protonix) apixaban 2.5 mg tablet (Eliquis) 2.5 mg PO BID 5 07/24/24 Held on 07/25/24. Instructions: Resume on 07/28/24. Please hold for 48 hours and until the [place] drain stops draining completely. furosemide 40 mg tablet 40 mg PO DAILY 07/24/2409/10 oxycodone 5 mg tablet 5 mg PO Q8H PRN pain #10 tab s 07/25/24 PHYSICAL EXAM AT DISCHARGE Vital Signs: Vital Signs x48h Temp Pulse Pulse Pulse Pulse Resp BP 07/25/24 13:00 97.5 F L 94 17 07/25/24 12:41 97.5 F L 94 16 07/25/24 12:05 97.9 F 87 18 07/25/24 11:43 117 H 14 07/25/24 11:20 76 07/25/24 11:17 98.1 F 76 12 07/25/24 10:45 97.9 F 74 12 07/25/24 10:32 97.5 F L 90 07/25/24 10:30 97.3 F L 84 16 07/25/24 10:15 97.5 F L 81 16 07/25/24 10:00 84 18 150/74 H 07/25/24 09:55 97.5 F L 98 16 152/88 H 07/25/24 09:50 90 17 147/79 H 07/25/24 09:45 97.7 F 96 12 138/91 H 07/25/24 09:42 98.1 F 107 H 10 L 138/90 H BP BP Pulse Ox 07/25/24 13:00 123/70 95 07/25/24 12:41 119/71 94 07/25/24 12:05 147/77 H 95 07/25/24 11:43 130/75 95 07/25/24 11:20 155/79 H 07/25/24 11:17 155/79 H 95 07/25/24 10:45 130/79 92 07/25/24 10:32 108/65 99 07/25/24 10:30 142/74 H 96 07/25/24 10:15 136/76 H 93 07/25/24 10:00 96 07/25/24 09:55 97 07/25/24 09:50 97 07/25/24 09:45 96 07/25/24 09:42 100 General Appearance: positive No acute distress and Alert; negative Anxious Eyes Bilateral: positive Normal inspection, PERRL and EOMI ENT: positive ENT inspection nml, Pharynx nml and No signs of dehydration Neck: positive Nml inspection, Thyroid nml, No JVD and Trachea midline Respiratory: positive Chest non-tender, No respiratory distress and Breath sounds nml; negative Wheezes, Rales or Rhonchi Cardiovascular: positive No murmur, No gallop and Irregularly irregular; negative Tachycardia Peripheral Pulses: positive 2+ Abdomen: positive Non-tender and No distention; negative Guarding, Hepatomegaly or Splenomegaly Back: positive Nml inspection; negative CVA tenderness (R) or CVA tenderness (L) Skin: positive Color nml, No rash, Warm and Dry Extremities: positive Non-tender, Pedal edema (1-2+ edema noted bilaterally) and Other (Left thigh with mild tenderness to touch. Wrapped in Andrea wrap. [place] drain in place.) Neurologic/Psychiatric: positive Oriented x3 and Mood/affect nml LABS 07/25/24 11:33 07/25/24 05:04 DIAGNOSTIC IMAGING Diagnostic Imaging Results: Final report reviewed FOLLOW UP Follow Up: Follow up with PCP. Follow up with general surgeon. Follow up with nephrology. TIME SPENT Time Spent in Discharge (Minutes): 35 Discharge Plan Discharge Patient Disposition: Home Health Service Condition: Stable Prescriptions: New oxycodone 5 mg tablet 5 mg PO Q8H PRN (Reason: pain) Qty: 10 0RF Continued multivitamin 1 EACH capsule 1 cap PO DAILY acetaminophen 500 MG tablet 1,000 mg PO TID cholecalciferol (vitamin D3) 25 MCG capsule 1,000 unit PO DAILY psyllium husk [Metamucil] 0.52 GM capsule 2 cap PO DAILY carboxymethylcellulose sodium [Refresh Celluvisc] 15 DROPS/0.4 ML dropperette,gel 1 drp ophthalmic (eye) DAILY PRN (Reason: As Needed Per Provider Orders) omega 8-vgv-oop-fish oil [Fish Oil] 1 EACH capsule 1 ea PO DAILY metoprolol succinate 100 mg tablet extended release 24 hr 100 mg PO Q12H Patient Comments: 1 TAB EVERY 12 HOURS pantoprazole [Protonix] 40 mg tablet,delayed release (DR/EC) 40 mg PO BID Qty: 60 0RF furosemide 40 mg tablet 40 mg PO DAILY Held Eliquis 2.5 mg tablet 2.5 mg PO BID Hold Instructions: Resume on 07/28/24. Please hold for 48 hours and until the Marlo drain stops draining completely. Diet: Cardiac Interventions: Discharge Last Done: 07/25/24 14:45 Discharge Checklist - Nursing Last Done: 07/25/24 14:45 Health Concerns: You came in after a fall. You noticed that your left thigh had extensive bruising, and was tight and tender. We did a CAT scan of it, and this revealed a large hematoma, AKA a collection of blood. We consulted general surgery, and they performed an incision and drainage of it. They left a Marlo drain in it. Please follow-up with them in the next 1 to 2 weeks to have this removed. I will attach the follow-up information in this discharge paperwork. Please hold your Eliquis for 48 hours. I strongly encourage you to follow-up with your upscale security officer, and discuss the Watchman procedure, I know you have already started this discussion. Please follow-up with your primary care provider in 1 to 2 weeks as well to recheck your blood levels and your kidney levels. I have sent a few oxycodone, a stronger pain pill, for you to use as needed for severe pain. For mild to moderate plain, please continue using Tylenol. Your dressing change instructions are as follows: Please cover the drain with an ABD dressing and wrap the thigh with a Kerlix rolled gauze secured in place with an 6" ANDREA wrap. Please change daily or when saturated. I am glad you are feeling better, thank you for allowing us to take care of you. Print Language: Divehi Patient Instructions: Incision Care Dc Stand Alone Forms: PCP List Follow-up Care: Joe Toledo MD [Provider Admit Priv/Credential] - 1 Week Zander Santiago MD [Primary Care Provider] -
[2024-07-25 12:43] VITALS: TEMP 97.5
[2024-07-25] MEDS ORDERED: METOPROLOL SUCCINATE 50 MG TABLET PO SCH (13:00)
[2024-07-25 13:19] VITALS: O2SAT 95
[2024-07-25 13:54] VITALS: BP 155/79
--- NOTE | 2024-07-25 14:15 | PT Plan of Care ---
PT Inpatient Plan of Care DIAGNOSIS Diagnosis: anemia; L thigh hematoma Referring Provider: Rell Grey Patient Status: Observation CHIEF COMPLAINT Chief Complaint: L thigh pain Onset of Chief Complaint: PAID SEARCH SPECIALIST on 07/23/24 MEDICAL/SURGICAL HISTORY Medical History (Updated 07/25/24 @ 10:10 by Concha Carbone CRNA) Cellulitis Laceration of left hand Cellulitis of right lower leg H/O sigmoidoscopy Encounter for removal of nasal pack Epistaxis NSTEMI (non-ST elevated myocardial infarction) A-fib Surgical History (Updated 07/25/24 @ 08:27 by Concha Carbone CRNA) History of hysterectomy H/O total hip arthroplasty Hx of total knee arthroplasty BALANCE/FUNCTIONAL RESULTS Sitting Balance: Good Standing Balance: Fair ASSESSMENT Assessment: The pt is an 89 y/o F who arrived to the ED on 07/23/24 due to worsening L thigh pain, she was hospitalized with anemia and a L thigh hematoma. She is now POD s/p I&D of this hematoma and has a jonathan drain in place. She was recently hospitalized at [facility] following the fall on 07/13/24, please see chart for complete medical hx. The pt was received resting comfortably supine in bed while receiving meds from her R, she presented today with decreased L LE strength, decreased activity tolerance, mild standing balance impairments, and decreased activity tolerance which limited her tolerance during functional mobility. The dressing at the pt's surgical site had saturated through and once standing with support from this therapist her RN replaced the existing dressing. Throughout all transfers she was able to demo safe skills without LOB. Once seated she was educated on HEP activities to maintain LE strength, these included seated marching, seated LAQ, and seated ankle pumps. She was able to teach back correct form and agreed to perform these throughout her day as tolerated. At this time recommend continued skilled PT intervention while in the acute setting and DC to back to [facility] with HH therapy and bath aid once pt medically stable. This plan was discussed with the pt and she was in agreement with this. At the end of the session the pt was sitting up in a chair with call light in reach and all needs met while eating her lunch. RN present throughout this assessment. DC management planner, RN, and MD all updated on pt's status and DC rec. PATIENT/FAMILY GOALS Patient/Family Goals: To be safe and strong enough to go home GOALS Improve supine to sit to:: Modified Independent Improve sit to stand to:: Modified Independent Improve pivot transfer ability to:: Modified Independent Improve sit to supine to:: Modified Independent Improve gait ability to:: Ind Advance Assistive Device to:: Front Wheeled Walker Increase distance walked to (in feet):: 25 PLAN Frequency: 1-2x/day Duration: Until discharge DISCHARGE RECOMMENDATIONS Discharge Location: Previous Living Situation Support/Services Needed: Home Health P.T. Other Discharge Equipment: pt owns all recommended DME Transport Needs at Discharge: Personal vehicle
== END 2024-07-25 14:50 | disposition home health service (06) ==
LOC: ED 21:26 → MS2 21:26
PROVIDERS: ADMIT Internal Medicine; ATTEND Internal Medicine
DX: I13.0 Hypertensive heart and chronic kidney disease with heart failure and stage 1 through stage 4 chronic kidney disease, or unspecified chronic kidney disease; I50.9 Heart failure, unspecified; N17.9 Acute kidney failure, unspecified; I73.9 Peripheral vascular disease, unspecified; D62 Acute posthemorrhagic anemia; D53.9 Nutritional anemia, unspecified; Z87.891 Personal history of nicotine dependence; N18.9 Chronic kidney disease, unspecified; W19.XXXA Unspecified fall, initial encounter; R00.0 Tachycardia, unspecified; I48.91 Unspecified atrial fibrillation; S70.12XA Contusion of left thigh, initial encounter; I25.2 Old myocardial infarction; E78.5 Hyperlipidemia, unspecified; R73.9 Hyperglycemia, unspecified; Z79.01 Long term (current) use of anticoagulants